=== PATIENT | male | born 1980 | race African-American/Black ===

== ENCOUNTER 2021-09-13 07:29 | Inpatient (IN) | payer SELFPAY ==
[2021-09-13 08:14] LABS: Absolute Lymphocytes (CBC) 1.6 K/uL (0.7-4.9); Hematocrit 45.7 % (39.6-49.0); Lymphocytes % 14.4 % (15.3-44.8); MCV 93.5 fL (80-100); MPV 10.1 fL (7.6-11.3); RBC Red Blood Cell Count 4.89 M/uL (4.33-5.43)
[2021-09-13] MEDS ORDERED: NA CHLORIDE 0.9% 1,000 ML ONE (08:38)
[2021-09-13 08:58] LABS: Albumin 4.3 g/dL (3.4-5.0); Bilirubin Total 1.3 mg/dL (0.2-1.0); Potassium 3.2 mmol/L (3.5-5.1); Protein, Total 8.6 g/dL (6.4-8.2)
--- NOTE | 2021-09-13 09:47 | RAD REPORT ---
EXAM DESCRIPTION: CTAbdomen Pelvis W Contrast - 09/13/2021 9:15 am CLINICAL HISTORY: Abdominal pain. Abdominal pain, acute, nonlocalized COMPARISON: CT ABD PELVIS W CONTRAST dated 06/04/2011 TECHNIQUE: Biphasic CT imaging of the abdomen and pelvis was performed with 100 ml non-ionic IV cont rast. All CT scans are performed using dose optimization technique as appropriate and may include automated exposure control or mA/KV adjustment according to patient size. FINDINGS: The lung bases are clear. The liver, spleen, pancreas, adrenal glands and kidneys are within normal limits. No bowel obstruction, free air, intra-abdominal free fluid or abscess. There is quite significant inf lammation surrounding segment of ascending colon along the right flank and right upper quadrant regio n. There is edematous intramural fluid suspected. The appendix is normal. 6 cm rounded localized flui d in posterior pelvis noted. No evidence of significant lymphadenopathy. No suspicious bony findings. IMPRESSION: Significant inflammation is seen surrounding a segment of the ascending colon along the right flank and right upper quadrant. This may be related to colitis or underlying inflammatory mass. Followup colonoscopy would be recommended.
--- NOTE | 2021-09-13 09:51 | EDPHYS ---
Physician Documentation [facility] Name: Cm Garduno Age: 41 yrs Sex: Male : 1980 Arrival Date: 09/13/2021 Time: 07:32 Bed 5 Private MD: ED Physician Elmer Ellington HPI: 09/13 07:45 This 41 yrs old Black Male presents to ER via Unassigned with complaints of abdominal rn and flank pain. 07:46 The patient presents with abdominal pain right lower quadrant, in the left lower rn quadrant. Onset: The symptoms/episode began/occurred 2 day(s) ago. The symptoms do not radiate. Associated signs and symptoms: Pertinent positives: anorexia, Pertinent negatives: nausea and vomiting, diarrhea, dysuria, fever, hematuria. The symptoms are described as achy, crampy. Modifying factors: The symptoms are alleviated by nothing, the symptoms are aggravated by nothing. Severity of pain: At its worst the pain was moderate in the emergency department the pain has improved. The patient has experienced a previous episode. The patient has not recently seen a physician. Pt reports RLQ and LLQ abd pain and flank pain, began 2 days ago, no trauma, no fever/chest pain/vomiting/diarrhea. Reports colitis in past. Also reports cough/congestion/runny nose/sore throat. . Historical: - Allergies: 07:47 No Known Allergies; jd3 - Home Meds: 07:47 None [Active]; jd3 - PMHx: 07:47 colitis; jd3 - PSHx: 07:47 None; jd3 - Immunization history:: Adult Immunizations up to date. - Social history:: Smoking status: unknown. - Family history:: not pertinent. - Hospitalizations: : No recent hospitalization is reported. ROS: 07:47 Constitutional: Negative for fever, chills, and weight loss, Eyes: Negative for injury, rn pain, redness, and discharge, ENT: + nasal congestion and sore throat Neck: Negative for injury, pain, and swelling, Cardiovascular: Negative for chest pain, palpitations, and edema, Respiratory: Negative for shortness of breath, cough, wheezing, and pleuritic chest pain, Abdomen/GI: + bilateral lower abd pain Back: Negative for injury and pain, : Negative for injury, bleeding, discharge, and swelling, MS/Extremity: Negative for injury and deformity, Neuro: Negative for headache, weakness, numbness, tingling, and seizure. Exam: 07:47 Constitutional: This is a well developed, well nourished patient who is awake, alert, rn and in no acute distress. Ambulatory to room without difficulty Head/Face: Normocephalic, atraumatic. ENT: No stridor, non-tender LAD, no masses Neck: Trachea midline, no masses palpated. Supple, full range of motion without nuchal rigidity, or vertebral point tenderness. No Meningismus. Cardiovascular: Regular rate and rhythm. No pulse deficits. Respiratory: No increased work of breathing, no retractions or nasal flaring. Occasional cough Abdomen/GI: Soft, non-tender Skin: Warm, dry MS/ Extremity: Pulses equal, no cyanosis. Neuro: Awake and alert, GCS 15 Vital Signs: 07:49 BP 150 / 95; Pulse 96; Resp 18 S; Temp 98.6(TE); Pulse Ox 100% on R/A; Weight 83.91 kg jd3 (R); Height 6 ft. 2 in. (187.96 cm) (R); Pain 10/10; 08:34 BP 143 / 95; Pulse 79; Resp 18 S; Pulse Ox 100% on R/A; jd3 10:56 BP 142 / 94; Pulse 75; Resp 18 S; Pulse Ox 100% on R/A; jd3 12:18 BP 135 / 95; Pulse 76; Resp 17 S; Pulse Ox 100% on R/A; jd3 13:09 BP 143 / 88; Pulse 88; Resp 17 S; Pulse Ox 100% on R/A; jd3 07:49 Body Mass Index 23.75 (83.91 kg, 187.96 cm) jd3 MDM: 07:32 Patient medically screened. rn 09:49 Differential diagnosis: appendicitis, diverticulitis, non-specific abd pain, rn pancreatitis, colitis. Data reviewed: vital signs, nurses notes, lab test result(s), radiologic studies, doppler, and as a result, I will admit patient. Counseling: I had a detailed discussion with the patient and/or guardian regarding: the historical points, exam findings, and any diagnostic results supporting the discharge/admit diagnosis, lab results, radiology results, the need for further work-up and treatment in [facility]. 09/13 07:45 Order name: CBC with Diff; Complete Time: 09:03 rn 09/13 07:45 Order name: CMP; Complete Time: 09:03 rn 09/13 07:45 Order name: Lipase; Complete Time: 09:03 rn 09/13 07:45 Order name: SARS-COV-2 RT PCR (Document "Date of Onset" if Symptomatic); Complete Time: rn 09:48 09/13 07:45 Order name: Flu; Complete Time: 09:03 rn 09/13 07:45 Order name: Urine Microscopic Only rn 09/13 07:47 Order name: Strep; Complete Time: 09:03 rn 09/13 09:42 Order name: Throat Culture EDMS 09/13 12:32 Order name: CBC with Automated Diff EDMS 09/13 12:32 Order name: CBC with Automated Diff EDMS 09/13 12:32 Order name: Comprehensive Metabolic Panel EDMS 09/13 12:32 Order name: Comprehensive Metabolic Panel EDMS 09/13 12:32 Order name: Magnesium EDMS 09/13 12:32 Order name: Magnesium EDMS 09/13 07:45 Order name: CT Abd/Pelvis - IV Contrast Only; Complete Time: 09:48 rn 09/13 07:45 Order name: IV Saline Lock; Complete Time: 08:34 rn 09/13 07:45 Order name: Labs collected and sent; Complete Time: 08:34 rn 09/13 12:30 Order name: CONS Physician Consult EDSD 09/13 12:32 Order name: NPO EDMS Administered Medications: 08:33 Drug: NS 0.9% 1000 ml Route: IV; Rate: 1000 ml; Site: right forearm; jd3 09:30 Follow up: Response: No adverse reaction; IV Status: Completed infusion jd3 11:07 Drug: Zosyn (piperacillin-tazobactam) 3.375 grams Route: IVPB; Infused Over: 60 mins; jd3 Site: right forearm; 12:00 Follow up: Response: No adverse reaction; IV Status: Completed infusion jd3 Disposition Summary: 09/13/21 09:50 Hospitalization Ordered Hospitalization Status: Inpatient Admission rn Provider: Mars Ellington rn Location: Telemetry/[facility] (Inpatient) rn Condition: Stable rn Problem: new rn Symptoms: have improved rn Bed/Room Type: Standard rn Room Assignment: 213(09/13/21 12:37) eb Diagnosis - Infectious gastroenteritis and colitis, unspecified rn Forms: - Medication Reconciliation Form rn - SBAR form rn Signatures: Dispatcher [employer] Elmer Santizo MD MD rn Davies, Jonathon, RN RN jd3 Botello, Elizabeth eb Corrections: (The following items were deleted from the chart) 12:37 09:50 rn syed
--- NOTE | 2021-09-13 09:51 | ER ---
Nurse's Notes [facility] Name: Cm Garduno Age: 41 yrs Sex: Male : 1980 Arrival Date: 09/13/2021 Time: 07:32 Bed 5 Private MD: Diagnosis: Infectious gastroenteritis and colitis, unspecified Presentation: 09/13 07:45 Chief complaint: Patient states: "I have been having this pain on my right side/flank. jd3 well really hurts on both, but mainly on the right. I have been having nausea, runny nose, and a small cough.". Coronavirus screen: At this time, the client does not indicate any symptoms associated with coronavirus-19. Ebola Screen: No symptoms or risks identified at this time. Initial Sepsis Screen: Does the patient meet any 2 criteria? No. Patient's initial sepsis screen is negative. Does the patient have a suspected source of infection? No. Patient's initial sepsis screen is negative. Risk Assessment: Do you want to hurt yourself or someone else? Patient reports no desire to harm self or others. Onset of symptoms was September 11, 2021. 07:45 Method Of Arrival: Ambulatory jd3 07:45 Acuity: KRISTA 3 jd3 Historical: - Allergies: 07:47 No Known Allergies; jd3 - Home Meds: 07:47 None [Active]; jd3 - PMHx: 07:47 colitis; jd3 - PSHx: 07:47 None; jd3 - Immunization history:: Adult Immunizations up to date. - Social history:: Smoking status: unknown. - Family history:: not pertinent. - Hospitalizations: : No recent hospitalization is reported. Screenin:53 Abuse screen: Denies threats or abuse. Nutritional screening: No deficits noted. jd3 Tuberculosis screening: No symptoms or risk factors identified. Fall Risk IV access (20 points). Ambulatory Aid- None/Bed Rest/Nurse Assist (0 pts). Gait- Normal/Bed Rest/Wheelchair (0 pts) Mental Status- Oriented to own ability (0 pts). Total Rosa Fall Scale indicates No Risk (0-24 pts). Assessment: 07:51 General: Appears in no apparent distress. comfortable, Behavior is calm, cooperative, jd3 appropriate for age. Pain: Complains of pain in low back area, left flank and right flank Quality of pain is described as sharp, tender. Neuro: Vang Agitation-Sedation Scale (RASS): 0 - Alert and Calm Level of Consciousness is awake, alert, obeys commands, Oriented to person, place, time, situation. Cardiovascular: Denies chest pain, Capillary refill < 3 seconds Patient's skin is warm and dry. Respiratory: Reports cough that is dry, Airway is patent Respiratory effort is even, unlabored, Respiratory pattern is regular, symmetrical, Denies shortness of breath. GI: Abdomen is non-distended, Abd is soft and non tender X 4 quads. Reports nausea. : Reports pain in right in left flank(s). EENT: No signs and/or symptoms were reported regarding the EENT system. Derm: Skin is intact, Skin is dry, Skin is normal, Skin temperature is warm. Musculoskeletal: Circulation, motion, and sensation intact. Range of motion: intact in all extremities. 08:50 Reassessment: Patient appears in no apparent distress at this time. No changes from jd3 previously documented assessment. Patient and/or family updated on plan of care and expected duration. Pain level reassessed. Patient is alert, oriented x 3, equal unlabored respirations, skin warm/dry/pink. 09:50 Reassessment: Patient appears in no apparent distress at this time. No changes from jd3 previously documented assessment. Patient and/or family updated on plan of care and expected duration. Pain level reassessed. Patient is alert, oriented x 3, equal unlabored respirations, skin warm/dry/pink. 10:55 Reassessment: Patient appears in no apparent distress at this time. Patient and/or jd3 family updated on plan of care and expected duration. Pain level reassessed. Patient is alert, oriented x 3, equal unlabored respirations, skin warm/dry/pink. awaiting admission. 12:18 Reassessment: Patient appears in no apparent distress at this time. No changes from jd3 previously documented assessment. Patient and/or family updated on plan of care and expected duration. Pain level reassessed. Patient is alert, oriented x 3, equal unlabored respirations, skin warm/dry/pink. 13:09 Reassessment: Patient appears in no apparent distress at this time. Patient and/or jd3 family updated on plan of care and expected duration. Pain level reassessed. Patient is alert, oriented x 3, equal unlabored respirations, skin warm/dry/pink. awaiting admission. 13:16 Reassessment: report attempt made. floor will call back. jd3 14:14 Reassessment: Patient appears in no apparent distress at this time. Patient and/or jd3 family updated on plan of care and expected duration. Pain level reassessed. Patient is alert, oriented x 3, equal unlabored respirations, skin warm/dry/pink. Vital Signs: 07:49 BP 150 / 95; Pulse 96; Resp 18 S; Temp 98.6(TE); Pulse Ox 100% on R/A; Weight 83.91 kg jd3 (R); Height 6 ft. 2 in. (187.96 cm) (R); Pain 10/10; 08:34 BP 143 / 95; Pulse 79; Resp 18 S; Pulse Ox 100% on R/A; jd3 10:56 BP 142 / 94; Pulse 75; Resp 18 S; Pulse Ox 100% on R/A; jd3 12:18 BP 135 / 95; Pulse 76; Resp 17 S; Pulse Ox 100% on R/A; jd3 13:09 BP 143 / 88; Pulse 88; Resp 17 S; Pulse Ox 100% on R/A; jd3 07:49 Body Mass Index 23.75 (83.91 kg, 187.96 cm) [facility] ED Course: 07:32 Patient arrived in ED. am2 07:32 Elmer Ellington MD is Attending Physician. rn 07:38 Aaron Velásquez, FRANCOIS is Primary Nurse. jd3 07:47 Triage completed. jd3 07:51 Arm band placed on. jd3 07:53 Patient has correct armband on for positive identification. Bed in low position. Call j light in reach. Side rails up X 1. Adult w/ patient. Pulse ox on. NIBP on. 08:06 Initial lab(s) drawn, by me, sent to lab. Inserted saline lock: 20 gauge in right em1 forearm, using aseptic technique. Blood collected. 09:17 CT Abd/Pelvis - IV Contrast Only In Process Unspecified. EDMS 09:50 Mars Ellington MD is Hospitalizing Provider. rn 13:17 Assisted to bathroom. jd3 14:14 No provider procedures requiring assistance completed. Patient admitted, IV remains in jd3 place. Administered Medications: 08:33 Drug: NS 0.9% 1000 ml Route: IV; Rate: 1000 ml; Site: right forearm; jd3 09:30 Follow up: Response: No adverse reaction; IV Status: Completed infusion jd3 11:07 Drug: Zosyn (piperacillin-tazobactam) 3.375 grams Route: IVPB; Infused Over: 60 mins; jd3 Site: right forearm; 12:00 Follow up: Response: No adverse reaction; IV Status: Completed infusion jd3 Medication: 07:53 VIS not applicable for this client. jd3 Outcome: 09:50 Decision to Hospitalize by Provider. rn 14:14 Admitted to Med/surg accompanied by tech, via stretcher, room 213, with chart, Report jd3 called to Sumaya PARRISH 14:14 Condition: stable 14:14 Instructed on the need for admit. 14:44 Patient left the ED. jd3 Signatures: Dispatcher [employer] Elmer Santizo MD MD rn Martinez, Eric em1 Sierra Gregg Jonathon, RN RN jjustine
[2021-09-13] MEDS ORDERED: PIPERACIL/TAZO 3.375 GM VIAL IV ONE (11:00)
[2021-09-13] MEDS ORDERED: NA CHLORIDE 0.9% 100 ML ONE (11:00)
[2021-09-13] MEDS ORDERED: ONDANSETRON 4 MG/2 ML VIAL IV PRN (12:28)
[2021-09-13] MEDS ORDERED: ACETAMINOPHEN 500 MG TAB PO PRN (12:28)
[2021-09-13] MEDS ORDERED: HYDROCODONE/APAP 5/325 MG TAB PO PRN (12:32)
[2021-09-13] MEDS: ENOXAPARIN 40 MG/0.4 ML SQ SCH (14:44)
[2021-09-13] MEDS: D5.45NS W/KCL 20MEQ 1,000 ML IV SCH (14:44)
[2021-09-13] MEDS: MORPHINE 2 MG/ML SYR IV PRN (14:44)
[2021-09-13 16:42] VITALS: BMI 23.7
[2021-09-13] MEDS: PIPER TAZO 3.375 GM in NA CHLORIDE 0.9% 100 ML IV SCH (16:47)
--- NOTE | 2021-09-13 18:53 | P.HP ---
Certification for Inpatient Patient admitted to: Inpatient With expected LOS: >2 Midnights Practitioner: I am a practitioner with admitting privileges, knowledge of patient current condition, hospital course, and medical plan of care. Services: Services provided to patient in accordance with Admission requirements found in Title 42 Section 412.3 of the Code of Federal Regulations Patient History Date of Service: 09/13/21 Reason for admission: colitis History of Present Illness: 41yo M, PMH: HTN Presents to ED due to ~2-3 days of R sided abdominal pain. No nausea/vomiting/di arrhea. Decreased PO intake secondary to discomfort. No fever/chills. Pain has not been improving so he presented to ED. Prior episode ~10 yrs ago and diagnosed with colitis. Never followed up with GI for c-scope. Difficulty with getting comfortable. Nothing in particular has helped. In the ED, CT concerning for inflammation of ascending colon. WBC: 11, afebrile Allergies NKDA Allergy (Uncoded 04/04/15 14:09) Unknown Home Medications: NK [No Home Meds] 09/13/21 - Past Medical/Surgical History Has patient received pneumonia vaccine in the past: No Diabetic: No -: Colitis Past Surgical History: Patient denies surgical history - Family History Father History Unknown: Yes Mother History Unknown: Yes - Social History Smoking Status: Current some day smoker Alcohol use: No CD- Drugs: No Caffeine use: Yes Place of Residence: Home Review of Systems 10-point ROS is otherwise unremarkable Physical Examination - Vital Signs Temperature: 99.7 F Blood Pressure: 166/87 Pulse: 80 Respirations: 18 Pulse Ox (%): 95 - Physical Exam General: Alert, Oriented x3, Mild distress (uncomfortable appearing) HEENT: Sclerae nonicteric Neck: No LAD Respiratory: Clear to auscultation bilaterally Cardiovascular: No edema, Regular rate/rhythm Gastrointestinal: Other (soft), Tenderness (R sided) Musculoskeletal: No contractures, No erythema Integumentary: No rashes, No significant lesion Neurological: Normal speech, Normal affect - Studies Laboratory Data (last 24 hrs) 09/13/21 08:00: Sodium 141, Potassium 3.2 L, BUN 8, Creatinine 0.93, Glucose 94, Total Bilirubin 1.3 H, AST 12 L, ALT 32, Alkaline Phosphatase 71, Lipase 155 09/13/21 08:00: WBC 11.0 H, Hgb 15.5, Hct 45.7, Plt Count 123 L Microbiology Data (last 24 hrs): 09/13/21 08:00 Throat Group A Streptococcus Rapid Screen - Final 09/13/21 08:00 Nasopharnyx Influenza Type A Antigen Screen - Final 09/13/21 08:00 Nasopharnyx Influenza Type B Antigen Screen - Final Assessment and Plan - Advance Directives Does patient have a Living Will: No Does patient have a Durable POA for Healthcare: No Physician Review Additional Text: Problem List Inflammation / colitis of ascending colon HTN, untreated zosyn NPO, IVF similar location as prior episode needs to f/u with GI for c-scope - explained to patient general surgery consulted, abnormal fluid collection noted in pelvis monitor BP serial abd exams Code: full Dispo: home, ~2-3 days Time Spent Managing Pts Care (In Minutes): 75
[2021-09-13] MEDS ORDERED: POTASSIUM CL SA 10 MEQ TAB PO ONE (20:00)
[2021-09-14] MEDS: D5.45NS W/KCL 20MEQ 1,000 ML IV SCH ×2 (00:28→10:30)
[2021-09-14] MEDS: PIPER TAZO 3.375 GM in NA CHLORIDE 0.9% 100 ML IV SCH ×3 (01:29→16:02)
[2021-09-14 05:56] LABS: Absolute Lymphocytes (CBC) 2.2 K/uL (0.7-4.9); Hematocrit 39.4 % (39.6-49.0); Lymphocytes % 27.9 % (15.3-44.8); MCV 94.6 fL (80-100); MPV 10.6 fL (7.6-11.3); RBC Red Blood Cell Count 4.17 M/uL (4.33-5.43)
[2021-09-14 06:17] LABS: Albumin 3.5 g/dL (3.4-5.0); Bilirubin Total 1.7 mg/dL (0.2-1.0); Magnesium 2.1 mg/dL (1.8-2.4); Potassium 3.9 mmol/L (3.5-5.1); Protein, Total 7.2 g/dL (6.4-8.2)
--- NOTE | 2021-09-14 06:18 | P.PN ---
Date of Service: 09/14/21 Subjective: less pain, feels hungry afebrile no new symptoms ROS: 10 point ROS as noted above, otherwise negative Physical exam GEN: Alert, oriented, NAD HEENT: Normal conjunctiva, sclera anicteric CV: Regular rate and rhythm, no edema Pulm: Nonlabored respirations on room air ABD: Soft, minimal tenderness in R abdomen to deep palpation, nondistended Neuro: Normal speech, normal affect Problem List Inflammation / colitis of ascending colon HTN, untreated zosyn advance to clear liquids, dc ivf similar location as prior episode needs to f/u with GI for c-scope - explained to patient general surgery consulted, abnormal fluid collection noted in pelvis stable for > 10 yrs advance diet as tolerated remains afebrile, no leukocytosis Code: full Dispo: home, tomorrow possibly advancing diet Time Spent Managing Pts Care (In Minutes): 35
[2021-09-14 07:10] LABS: Urine Appearance Clear (Clear); Urine Bilirubin Negative (Negative); Urine Blood Trace-intact (Negative); Urine Color Yellow (Yellow); Urine Glucose Negative (Negative); Urine Protein Negative (Negative)
[2021-09-14 07:11] LABS: Urine Microscopic Reflex ORDER UMIC
[2021-09-14 07:29] LABS: Urine Bacteria <20 /HPF (NONE SEEN); Urine Mucus 1+ /HPF (NONE SEEN); Urine RBC <5 /HPF (NONE SEEN)
[2021-09-14] MEDS: ENOXAPARIN 40 MG/0.4 ML SQ SCH (07:47)
[2021-09-14] MEDS ORDERED: POTASSIUM CL SA 10 MEQ TAB PO ONE ×2 (08:00→09:00)
--- NOTE | 2021-09-14 10:29 | P.CNS ---
Date of Consult: 09/14/21 Reason for consult: Abdominal pain History of present illness: Patient is a 41-year-old gentleman who presents to the emergency room with 2 to 3-day history of right-sided abdominal pain associated with nausea and vomiting. He had a similar episode several years back was diagnosed with colitis but he never followed up with the GI service. He denies diarrhea, constipation or blood in his stool. Denies dysuria or hematuria. Denies sore throat, runny nose, cough, headaches, dizziness, chest pain, fever or chills. Review of systems: Otherwise unremarkable Past medical history: Colitis Past surgical history: Negative Allergies: None Social history: Does not smoke drinks occasionally Family history: Noncontributory Vital signs: Stable, afebrile Physical exam: Awake alert oriented x4 Head and neck exam: No masses Chest: Clear Heart: S1-S2 Abdomen: Soft, nondistended, positive bowel sound, nontender Extremity: Neurovascular intact, nontender Neuro: Nonfocal Diagnostic data: White count was 11.[address] of the abdomen pelvis was reviewed with radiologist. CT revealed ascending colon colitis with a chronic pelvic c yst which has not changed since 2011. Assessment: Ascending colon colitis Plan/recommendation: Admit, IV fluids and IV antibiotics. We will begin patient's diet with clear liquids and advance to low fiber as tolerated. Get dietitian consultation. Patient will need 2 weeks of oral antibiotics upon discharge and follow-up with the GI service for an outpatient colonoscopy in 4 to 6 weeks. Plan of care discussed in detail with Dr. Ellington as well as the family member and patient. CC:
[2021-09-14] MEDS: MORPHINE 2 MG/ML SYR IV PRN (19:25)
[2021-09-15] MEDS: PIPER TAZO 3.375 GM in NA CHLORIDE 0.9% 100 ML IV SCH ×2 (00:30→07:57)
[2021-09-15 03:50] LABS: Absolute Lymphocytes (CBC) 2.6 K/uL (0.7-4.9); Hematocrit 41.3 % (39.6-49.0); Lymphocytes % 44.2 % (15.3-44.8); MCV 94.3 fL (80-100); MPV 10.3 fL (7.6-11.3); RBC Red Blood Cell Count 4.38 M/uL (4.33-5.43)
[2021-09-15 04:10] LABS: Albumin 3.8 g/dL (3.4-5.0); Bilirubin Total 1.1 mg/dL (0.2-1.0); Potassium 3.9 mmol/L (3.5-5.1); Protein, Total 7.7 g/dL (6.4-8.2)
[2021-09-15] MEDS: ENOXAPARIN 40 MG/0.4 ML SQ SCH (07:57)
[2021-09-15] MEDS ORDERED: POTASSIUM CL SA 10 MEQ TAB PO ONE (09:00)
[2021-09-15 09:25] VITALS: O2SAT 100
[2021-09-15 09:37] VITALS: BP 149/84; TEMP 99
--- NOTE | 2021-09-15 10:04 | P.PN ---
Date of Service: 09/15/21 Subjective: Patient has no pain. Patient is tolerating diet. Objective: Signs stable, afebrile Abdomen: Soft, nondistended, nontender and positive bowel sounds Assessment: Ascending colon colitis Plan: Cleared for discharge on 2 weeks of oral antibioticsCipro and Flagyl. Follow-up with GI service in 4 to 6 weeks. CC:
--- NOTE | 2021-09-15 20:36 | P.DS ---
Admission Date: 09/13/21 Discharge Date: 09/15/21 Disposition: ROUTINE DISCHARGE Discharge Condition: GOOD Reason for Admission: colitis Consultations: General Surgery - Dr. Estrada Brief History of Present Illness: 41yo M, PMH: HTN Presents to ED due to ~2-3 days of R sided abdominal pain. No nausea/vomiting/diarrhea. Decreased PO intake secondary to discomfort. No fever/chills. Pain has not been improving so he presented to ED. Prior episode ~10 yrs ago and diagnosed with colitis. Never followed up with GI for c-scope. Difficulty with getting comfortable. Nothing in particular has helped. In the ED, CT concerning for inflammation of ascending colon. WBC: 11, afebrile Hospital Course: Problem List Inflammation / colitis of ascending colon HTN, untreated Patient was treated with IV zosyn for colitis. He had improvement of his symptoms, remained afebrile. Diet was slowly advanced, which he tolerated well. Recommend soft / low fiber diet. Discharged with 12 days of Augmentin. Follow up with PCP within 1 week. Follow up with GI soon, call office to make appointment. Recommend colonoscopy Vital Signs/Physical Exam: Temp Pulse Resp BP Pulse Ox 99.0 F 66 16 149/84 H 100 09/15/21 08:00 09/15/21 08:00 09/15/21 08:00 09/15/21 08:00 09/15/21 08:00 Physical exam GEN: Alert, oriented, NAD HEENT: Normal conjunctiva, sclera anicteric CV: Regular rate and rhythm, no edema Pulm: Nonlabored respirations on room air ABD: Soft, minimal tenderness in R abdomen to deep palpation, nondistended Neuro: Normal speech, normal affect Laboratory Data at Discharge: WBC 5.9 K/uL (4.3-10.9) D 09/15/21 03:08 Hgb 14.2 g/dL (13.6-17.9) 09/15/21 03:08 Hct 41.3 % (39.6-49.0) 09/15/21 03:08 Plt Count 128 K/uL (152-406) L 09/15/21 03:08 Sodium 138 mmol/L (136-145) 09/15/21 03:08 Potassium 3.9 mmol/L (3.5-5.1) 09/15/21 03:08 BUN 6 mg/dL (7-18) L 09/15/21 03:08 Creatinine 0.97 mg/dL (0.55-1.3) 09/15/21 03:08 Glucose 88 mg/dL (74-106) 09/15/21 03:08 Magnesium 2.0 mg/dL (1.8-2.4) 09/15/21 03:08 Total Bilirubin 1.1 mg/dL (0.2-1.0) H 09/15/21 03:08 AST 10 U/L (15-37) L 09/15/21 03:08 ALT 28 U/L (12-78) 09/15/21 03:08 Alkaline Phosphatase 54 U/L (45-117) 09/15/21 03:08 Lipase 155 U/L (73-393) 09/13/21 08:00 Home Medications: Amox/Clavulanate [Augmentin 875-125 Tab] 1 each PO BID 12 Days #24 tab 09/15/21 New Medications: Amox/Clavulanate [Augmentin 875-125 Tab] 1 each PO BID 12 Days #24 tab Physician Discharge Instructions: Patient was treated with IV zosyn for colitis. He had improvement of his symptoms, remained afebrile. Diet was slowly advanced, which he tolerated well. Recommend soft / low fiber diet. Discharged with 12 days of Augmentin. Follow up with PCP within 1 week. Follow up with GI soon, call office to make appointment. Recommend colonoscopy Followup: George Meier MD [Primary Care Provider] - 1 Week (call to schedule an appointment ) Time spent managing pt's care (in minutes): 40
== END 2021-09-15 10:15 | disposition home or self-care (01) | DRG 392 ==
LOC: ER 07:29 → ERHOLD 12:58 → 2ND 14:17
PROVIDERS: ADMIT Hospitalist; ATTEND Hospitalist
DX: K52.9 Noninfective gastroenteritis and colitis, unspecified (principal); I10 Essential (primary) hypertension; F17.200 Nicotine dependence, unspecified, uncomplicated; Z20.822 Contact with and (suspected) exposure to COVID-19
CPT/HCPCS: 36415; 74177; 80053; 81003; 81015; 83690; 83735; 85025; 87040; 87070; 87081; 87804; 94760; 96361; 96365; 99285; J1650; J2270; J2543; J7030; Q9967; U0003

== ENCOUNTER 2022-01-29 11:24 | Emergency (ER) | payer OTHER, SELFPAY ==
--- OUTSIDE RECORDS SUMMARY | 2022-01-29 11:30 | XMS REPORT | Continuity of Care Document ---
:1980 Author Organization [facility] t Address Formerly [facility] [address] [place] [address] Care Team Providers Name Role Phone Pancho Meier MD Primary Care Physician RADIOLOGY Attending Clinician Unavailable Doctor Unassigned, [place] Attending Clinician Unavailable BRITTNEE ARIZA Attending Clinician Unavailable Brittnee Terrell Attending Clinician Unknown, Attending Attending Clinician Unavailable James BURTON Attending Clinician Unavailable Trace Pinzon DO Attending Clinician James Broussard Attending Clinician Only, Ang Db Test Attending Clinician Unavailable PANCHO MEIER Attending Clinician Unavailable LISSY BERRIOS Attending Clinician Unavailable POPEYE GRANDA Attending Clinician Unavailable Pancho Meier MD Attending Clinician VALERIA EDWARDS Attending Clinician Unavailable Sadie Salcedo PT Attending Clinician Unavailable Valeria Edwards MD Attending Clinician 2, [facility] Attending Clinician Unavailable Payers Payer Name Policy Type Policy Number Effective Date Expiration Date S ource Problems Condition Condition Condition Status Onset Resolution Last Treating Co mments Source Name Details Category Date Date Treatment Clinician Date Need for Need for Disease Active Unive rs hepatitis hepatitis 6-08 ity of C C 00:00: [place] screening screening 00 Medi bishop test test Branch 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 6-08 it[place] panc[place] without 00 Medical complicati complicati Br anch ons ons Screening Screening Disease Active Uni vers for for 6-08 [place] malignant malignant [place] Med[place] of colon of colon Branch Acute pain Acute pain Disease Active U nivers of left of left 3-11 ity of shoulder shoulder 00:00: [place] 00 Medical Branch Muscle Muscle Disease Active Univers spasm of spasm of 3-11 ity of right right 00:00: [place] shoulder shoulder 00 Medica l Branch Lumbar Lumbar Disease Active Univers paraspinal paraspinal 3-11 it y of muscle muscle 00:00: [place] spasm spasm 00 Medical Branch Strain of Strain of Disease Active Uni vers left left 3-11 it[place] of shoulder, shoulder, 00:[place] initial 00 Medical encounter encounter Bran ch Acute Acute Disease Active Univers bilateral bilateral 3-11 ity of low back low back 00:00: [place] pain pain 00 Medical without without Branch sciatica sciatica Essential Essential Disease Active Uni vers hypertensi hypertensi 3-04 it y of on on 00:00: Medical Branch Generalize Generalize Disease Active U nivers d anxiety d anxiety 3-04 ity of disorder disorder 00:00: [place] Medical [facility] Depression Depression Disease Active U nivers , major, , major, 3-04 ity of recurrent, recurrent, [place] mild mild Medical Branch Primary Primary Disease Active [facility] insomnia insomnia 3-04 ity of 00:00: [place] [facility] Migraine Migraine Disease Active Unive rs equivalent equivalent 3-04 it y of syndrome syndrome 00:00: [place] [facility] Cigarette Cigarette Disease Active Uni vers nicotine nicotine 3-04 ity of dependence dependence [place] , , 00 Medical uncomplica uncomplica Br reyes nava Hand Hand Disease Active Univers injury, injury, 1-20 ity of right, right, 00:00: [place] initial initial 00 Medical encounter encounter Bran ch Allergies, Adverse Reactions, Alerts Allergy Allergy Status Severity Reaction(s) Onset Inactive Treating Comm ents Source Name Type Date Date Clinician NO KNOWN Drug Active Univers ALLERGIE Class ity of S [place] [facility] [place] Social History Social Habit Start Date Stop Date Quantity Comments Source Exposure to 2022-01-18 2022-01-28 Not sure [facility] SARS-CoV-2 (event) 00:00:00 10:49:00 Medica l Branch Alcohol intake 2022-01-04 2022-01-04 0 /d [facility] 00:[facility]:00 00:00:00 Medical Branch Tobacco use and 2020-08-28 2020-08-28 Never used [facility] exposure 00:00:00 00:00:00 Medical Branch Sex [birth year] [facility] 00:00:00 00:00:00 Medical Branch Smoking Status Start Date Stop Date Source Never smoked tobacco [facility] Medications Ordered Filled Start Stop Current Ordering Indication Dosage Frequency Signature Comments Components Source Medication Medication Date Date Medication? Clinician (SIG) Name Name fluticasone 2021-03 Yes [id number] 2{spray Use 2 Univers propionate 0-15 } Sprays in ity of 50 00:00: each [place] mcg/actuati 00 nostril in Me dical on nasal the Branch spray morning. cetirizine 2021-03 Yes [id number] 10mg Take 1 U nivers (ZYRTEC) 10 0-15 tablet by ity of mg tablet 00:00: mouth in the Medical morning. Branch fluticasone 2021-03 Yes [id number] 2{spray Use 2 Univers propionate 0-15 } Sprays in ity of 50 00:00: each [place] mcg/actuati 00 nostril in Me dical on nasal the Branch spray morning. cetirizine 2021-03 Yes [id number] 10mg Take 1 U nivers (ZYRTEC) 10 0-15 tablet by ity of mg tablet 00:00: mouth in the Medical morning. Branch amLODIPine 2021-03 Yes 10mg Take 10 mg U nivers 10 mg 0-07 by mouth ity of tablet 00:00: in the morning. Medical Branch orphenadrin 2021-03 Yes TAKE 1 Univ ers e 100 mg SR 0-07 TABLET BY ity of tablet 00:00: MOUTH [place] 00 TWICE Medical DAILY Branch NEEDED amLODIPine 2021-03 Yes 10mg Take 10 mg U nivers 10 mg 0-07 by mouth ity of tablet 00:00: in the [place] 00 morning. Medical Branch orphenadrin 2021-03 Yes TAKE 1 Univ ers e 100 mg SR 0-07 TABLET BY ity of tablet 00:00: MOUTH [place] 00 TWICE Medical DAILY Branch NEEDED lisinopriL- Yes [id number] .5{tbl} Take 0.5 Univers hydrochloro 6-08 tablets by it y of thiazide 00:00: mouth [place] 10-12.5 mg 00 daily. Medical per tablet Branch esomeprazol Yes [id number] 20mg Take 20 mg Univers e 20 mg 6-08 by mouth ity of capsule 00:00: daily [place] 00 before a Medical meal. Branch nicotine Yes [id number] 1{patch Apply 1 Univers mg/24 hr 6-08 } Patch to ity of patch 00:00: area(s) [place] 00 every 24 Medical (twenty-fo Branch ur) hours. Apply 21mg patch daily x 6 weeks; then apply 14mf patch daily x 2 weeks; then apply 7mg patch daily x 2 weeks. Stop smoking on initiation of therapy nicotine Yes [id number] 1{patch Apply 1 Univers mg/24 hr 6-08 } Patch to ity of patch 00:00: area(s) [place] 00 daily. Medical Apply 21mg Branch patch daily x 6 weeks; then apply 14mg patch daily x 2 weeks; then apply 7mg patch daily x 2 weeks. Stop smoking on initiation of therapy nicotine Yes [id number] 1{patch Apply 1 Univers mg/24 hr 6-08 } Patch to ity of patch 00:00: area(s) [place] 00 every 24 Medical (twenty-fo Branch ur) hours. Apply 21mg patch daily x 6 weeks; then apply 14mf patch daily x 2 weeks; then apply 7mg patch daily x 2 weeks. Stop smoking on initiation of therapy lisinopriL- Yes [id number] .5{tbl} Take 0.5 Univers hydrochloro 6-08 tablets by it y of thiazide 00:00: mouth [place] 10-12.5 mg 00 daily. Medical per tablet Branch esomeprazol Yes [id number] 20mg Take 20 mg Univers e 20 mg 6-08 by mouth ity of capsule 00:00: daily [place] 00 before a Medical meal. Branch nicotine Yes [id number] 1{patch Apply 1 Univers mg/24 hr 6-08 } Patch to ity of patch 00:00: area(s) [place] 00 every 24 Medical (twenty-fo Branch ur) hours. Apply 21mg patch daily x 6 weeks; then apply 14mf patch daily x 2 weeks; then apply 7mg patch daily x 2 weeks. Stop smoking on initiation of therapy nicotine Yes [id number] 1{patch Apply 1 Univers mg/24 hr 6-08 } Patch to ity of patch 00:00: area(s) [place] 00 daily. Medical Apply 21mg Branch patch daily x 6 weeks; then apply 14mg patch daily x 2 weeks; then apply 7mg patch daily x 2 weeks. Stop smoking on initiation of therapy nicotine 7 Yes [id number] 1{patch Apply 1 Univers mg/24 hr 6-08 } Patch to ity of patch 00:00: area(s) [place] 00 every 24 Medical (twenty-fo Branch ur) hours. Apply 21mg patch daily x 6 weeks; then apply 14mf patch daily x 2 weeks; then apply 7mg patch daily x 2 weeks. Stop smoking on initiation of therapy lisinopriL- Yes [id number] .5{tbl} Take 0.5 Univers hydrochloro 6-08 tablets by it y of thiazide 00:00: mouth [place] 10-12.5 mg 00 daily. Medical per tablet Branch esomeprazol Yes [id number] 20mg Take 20 mg Univers e 20 mg 6-08 by mouth ity of capsule 00:00: daily [place] 00 before a Medical meal. Branch nicotine Yes [id number] 1{patch Apply 1 Univers mg/24 hr 6-08 } Patch to ity of patch 00:00: area(s) [place] 00 every 24 Medical (twenty-fo Branch ur) hours. Apply 21mg patch daily x 6 weeks; then apply 14mf patch daily x 2 weeks; then apply 7mg patch daily x 2 weeks. Stop smoking on initiation of therapy nicotine Yes [id number] 1{patch Apply 1 Univers mg/24 hr 6-08 } Patch to ity of patch 00:00: area(s) [place] 00 daily. Medical Apply 21mg Branch patch daily x 6 weeks; then apply 14mg patch daily x 2 weeks; then apply 7mg patch daily x 2 weeks. Stop smoking on initiation of therapy nicotine 7 Yes [id number] 1{patch Apply 1 Univers mg/24 hr 6-08 } Patch to ity of patch 00:00: area(s) [place] 00 every 24 Medical (twenty-fo Branch ur) hours. Apply 21mg patch daily x 6 weeks; then apply 14mf patch daily x 2 weeks; then apply 7mg patch daily x 2 weeks. Stop smoking on initiation of therapy lisinopriL- Yes [id number] .5{tbl} Take 0.5 Univers hydrochloro 6-08 tablets by it y of thiazide 00:00: mouth [place] 10-12.5 mg 00 daily. Medical per tablet Branch esomeprazol Yes [id number] 20mg Take 20 mg Univers e 20 mg 6-08 by mouth ity of capsule 00:00: daily [place] 00 before a Medical meal. Branch nicotine 14 Yes [id number] 1{patch Apply 1 Univers mg/24 hr 6-08 } Patch to ity of patch 00:00: area(s) [place] 00 every 24 Medical (twenty-fo Branch ur) hours. Apply 21mg patch daily x 6 weeks; then apply 14mf patch daily x 2 weeks; then apply 7mg patch daily x 2 weeks. Stop smoking on initiation of therapy nicotine Yes [id number] 1{patch Apply 1 Univers mg/24 hr 6-08 } Patch to ity of patch 00:00: area(s) [place] 00 daily. Medical Apply 21mg Branch patch daily x 6 weeks; then apply 14mg patch daily x 2 weeks; then apply 7mg patch daily x 2 weeks. Stop smoking on initiation of therapy nicotine 7 Yes [id number] 1{patch Apply 1 Univers mg/24 hr 6-08 } Patch to ity of patch 00:00: area(s) [place] 00 every 24 Medical (twenty-fo Branch ur) hours. Apply 21mg patch daily x 6 weeks; then apply 14mf patch daily x 2 weeks; then apply 7mg patch daily x 2 weeks. Stop smoking on initiation of therapy lisinopriL- Yes [id number] .5{tbl} Take 0.5 Univers hydrochloro 6-08 tablets by it y of thiazide 00:00: mouth [place] 10-12.5 mg 00 daily. Medical per tablet Branch esomeprazol Yes [id number] 20mg Take 20 mg Univers e 20 mg 6-08 by mouth ity of capsule 00:00: daily [place] 00 before a Medical meal. Branch nicotine Yes [id number] 1{patch Apply 1 Univers mg/24 hr 6-08 } Patch to ity of patch 00:00: area(s) [place] 00 every 24 Medical (twenty-fo Branch ur) hours. Apply 21mg patch daily x 6 weeks; then apply 14mf patch daily x 2 weeks; then apply 7mg patch daily x 2 weeks. Stop smoking on initiation of therapy nicotine Yes [id number] 1{patch Apply 1 Univers mg/24 hr 6-08 } Patch to ity of patch 00:00: area(s) [place] 00 daily. Medical Apply 21mg Branch patch daily x 6 weeks; then apply 14mg patch daily x 2 weeks; then apply 7mg patch daily x 2 weeks. Stop smoking on initiation of therapy nicotine 7 Yes [id number] 1{patch Apply 1 Univers mg/24 hr 6-08 } Patch to ity of patch 00:00: area(s) [place] 00 every 24 Medical (twenty-fo Branch ur) hours. Apply 21mg patch daily x 6 weeks; then apply 14mf patch daily x 2 weeks; then apply 7mg patch daily x 2 weeks. Stop smoking on initiation of therapy lisinopriL- Yes [id number] .5{tbl} Take 0.5 Univers hydrochloro 6-08 tablets by it y of thiazide 00:00: mouth [place] 10-12.5 mg 00 daily. Medical per tablet Branch esomeprazol Yes [id number] 20mg Take 20 mg Univers e 20 mg 6-08 by mouth ity of capsule 00:00: daily [place] 00 before a Medical meal. Branch nicotine 14 Yes [id number] 1{patch Apply 1 Univers mg/24 hr 6-08 } Patch to ity of patch 00:00: area(s) [place] 00 every 24 Medical (twenty- Branch ur) hours. Apply 21mg patch daily x 6 weeks; then apply 14mf patch daily x 2 weeks; then apply 7mg patch daily x 2 weeks. Stop smoking on initiation of therapy nicotine Yes [id number] 1{patch Apply 1 Univers mg/24 hr 6-08 } Patch to ity of patch 00:00: area(s) [place] 00 daily. Medical Apply 21mg Branch patch daily x 6 weeks; then apply 14mg patch daily x 2 weeks; then apply 7mg patch daily x 2 weeks. Stop smoking on initiation of therapy nicotine Yes [id number] 1{patch Apply 1 Univers mg/24 hr 6-08 } Patch to ity of patch 00:00: area(s) [place] 00 every 24 Medical ([facility] Branch ur) hours. Apply 21mg patch daily x 6 weeks; then apply 14mf patch daily x 2 weeks; then apply 7mg patch daily x 2 weeks. Stop smoking on initiation of therapy lisinopriL- Yes [id number] .5{tbl} Take 0.5 Univers hydrochloro 6-08 tablets by it y of thiazide 00:00: mouth [place] 10-12.5 mg 00 daily. Medical per tablet Branch esomeprazol Yes [id number] 20mg Take 20 mg Univers e 20 mg 6-08 by mouth ity of capsule 00:00: daily [place] 00 before a Medical meal. Branch nicotine Yes [id number] 1{patch Apply 1 Univers mg/24 hr 6-08 } Patch to ity of patch 00:00: area(s) [place] 00 every 24 Medical (twenty- Branch ur) hours. Apply 21mg patch daily x 6 weeks; then apply 14mf patch daily x 2 weeks; then apply 7mg patch daily x 2 weeks. Stop smoking on initiation of therapy nicotine Yes [id number] 1{patch Apply 1 Univers mg/24 hr 6-08 } Patch to ity of patch 00:00: area(s) [place] 00 daily. Medical Apply 21mg Branch patch daily x 6 weeks; then apply 14mg patch daily x 2 weeks; then apply 7mg patch daily x 2 weeks. Stop smoking on initiation of therapy nicotine 7 Yes [id number] 1{patch Apply 1 Univers mg/24 hr 6-08 } Patch to ity of patch 00:00: area(s) [place] 00 every 24 Medical ([facility] Branch ur) hours. Apply 21mg patch daily x 6 weeks; then apply 14mf patch daily x 2 weeks; then apply 7mg patch daily x 2 weeks. Stop smoking on initiation of therapy lisinopriL- Yes [id number] .5{tbl} Take 0.5 Univers hydrochloro 6-08 tablets by it y of thiazide 00:00: mouth [place] 10-12.5 mg 00 daily. Medical per tablet Branch esomeprazol Yes [id number] 20mg Take 20 mg Univers e 20 mg 6-08 by mouth ity of capsule 00:00: daily [place] 00 before a Medical meal. Branch nicotine Yes [id number] 1{patch Apply 1 Univers mg/24 hr 6-08 } Patch to ity of patch 00:00: area() [place] 00 every 24 Medical ([facility] Branch ur) hours. Apply 21mg patch daily x 6 weeks; then apply 14mf patch daily x 2 weeks; then apply 7mg patch daily x 2 weeks. Stop smoking on initiation of therapy nicotine Yes [id number] 1{patch Apply 1 Univers mg/24 hr 6-08 } Patch to ity of patch 00:00: area(s) [place] 00 daily. Medical Apply 21mg Branch patch daily x 6 weeks; then apply 14mg patch daily x 2 weeks; then apply 7mg patch daily x 2 weeks. Stop smoking on initiation of therapy nicotine Yes [id number] 1{patch Apply 1 Univers mg/24 hr 6-08 } Patch to ity of patch 00:00: area(s) [place] 00 every 24 Medical (twenty- Branch ur) hours. Apply 21mg patch daily x 6 weeks; then apply 14mf patch daily x 2 weeks; then apply 7mg patch daily x 2 weeks. Stop smoking on initiation of therapy lisinopriL- Yes [id number] .5{tbl} Take 0.5 Univers hydrochloro 6-08 tablets by it y of thiazide 00:00: mouth [place] 10-12.5 mg 00 daily. Medical per tablet Branch esomeprazol Yes [id number] 20mg Take 20 mg Univers e 20 mg 6-08 by mouth ity of capsule 00:00: daily [place] 00 before a Medical meal. Branch nicotine 14 Yes [id number] 1{patch Apply 1 Univers mg/24 hr 6-08 } Patch to ity of patch 00:00: area(s) [place] 00 every 24 Medical (twenty-fo Branch ur) hours. Apply 21mg patch daily x 6 weeks; then apply 14mf patch daily x 2 weeks; then apply 7mg patch daily x 2 weeks. Stop smoking on initiation of therapy nicotine Yes [id number] 1{patch Apply 1 Univers mg/24 hr 6-08 } Patch to ity of patch 00:00: area(s) [place] 00 daily. Medical Apply 21mg Branch patch daily x 6 weeks; then apply 14mg patch daily x 2 weeks; then apply 7mg patch daily x 2 weeks. Stop smoking on initiation of therapy nicotine Yes [id number] 1{patch Apply 1 Univers mg/24 hr 6-08 } Patch to ity of patch 00:00: [facility](s) [place] 00 every 24 Medical (twenty- Branch ur) hours. Apply 21mg patch daily x 6 weeks; then apply 14mf patch daily x 2 weeks; then apply 7mg patch daily x 2 weeks. Stop smoking on initiation of therapy nicotine 2020- No [id number] 1{patch Apply 1 Univers mg/24 hr 6-08 06-08 } Patch to ity of patch 00:00: 00:00 [facility]() [place] 00 :00 every 24 Medical (twenty- Branch ur) hours. Apply 21mg patch daily x 6 weeks; then apply 14mf patch daily x 2 weeks; then apply 7mg patch daily x 2 weeks. Stop smoking on initiation of therapy nicotine 2020- No [id number] 1{patch Apply 1 Univers mg/24 hr 6-08 06-08 } Patch to ity of patch 00:00: 00:00 [facility]() [place] 00 :00 daily. Medical Apply 21mg Branch patch daily x 6 weeks; then apply 14mg patch daily x 2 weeks; then apply 7mg patch daily x 2 weeks. Stop smoking on initiation of therapy nicotine 2020- No [id number] 1{patch Apply 1 Univers mg/24 hr 6 06-08 } Patch to ity of patch 00:00: 00:00 [facility](s) [place] 00 :00 every 24 Medical (twenty- Branch ur) hours. Apply 21mg patch daily x 6 weeks; then apply 14mf patch daily x 2 weeks; then apply 7mg patch daily x 2 weeks. Stop smoking on initiation of therapy nicotine 14 2020- No [id number] 1{patch Apply 1 Univers mg/24 hr 6 06-08 } Patch to ity of patch 00:00: 00:00 [facility](s) [place] 00 :00 every 24 Medical ([facility] Branch ur) hours. Apply 21mg patch daily x 6 weeks; then apply 14mf patch daily x 2 weeks; then apply 7mg patch daily x 2 weeks. Stop smoking on initiation of therapy nicotine 21 2020- No [id number] 1{patch Apply 1 Univers mg/24 hr 08-28-08 } Patch to ity of patch 00:00: 00:00 [facility](s) [place] 00 :00 daily. Medical Apply 21mg Branch patch daily x 6 weeks; then apply 14mg patch daily x 2 weeks; then apply 7mg patch daily x 2 weeks. Stop smoking on initiation of therapy nicotine 7 2020- No [id number] 1{patch Apply 1 Univers mg/24 hr 08-28 06-08 } Patch to ity of patch 00:00: 00:00 [facility](s) [place] 00 :00 every 24 Medical ([facility] Branch ur) hours. Apply 21mg patch daily x 6 weeks; then apply 14mf patch daily x 2 weeks; then apply 7mg patch daily x 2 weeks. Stop smoking on initiation of therapy tiZANidine Yes [id number] 2mg Take 1 Univers 2 mg tablet 3-11 [id number] tablet by i ty of 00:00: mouth [place] 00 every 8 Medical (eight) Branch hours as needed (muscle spasms). DULoxetine Yes [id number] 20mg Take 20 mg Univers 20 mg CDRS 3-11 by mouth 2 ity of 00:00: (two) [place] 00 times Medical daily. Branch Diclofenac Yes [id number] Apply to Univers Sodium 3-11 area(s) 4 ity of (VOLTAREN) 00:00: (four) [place] 1 % gel 00 times Medical daily. Branch Apply 4 g qid ibuprofen 0 Yes [id number] 600mg Take 1 Univers 600 mg 3-11 tablet by ity of tablet 00:00: mouth [place] 00 every 8 Medical (eight) Branch hours as needed for Pain (scale 4-6). Back Brace Yes [id number] Use as Univers Misc 3-11 directed ity of 00:00: [place] 00 Medical Branch lidocaine 2020-0 Yes [id number] 1{patch Apply 1 Univers 3.5 % PtMd 3-11 } Patch to ity o f 00:00: area(s) [place] 00 daily. Medical Branch tiZANidine Yes [id number] 2mg Take 1 Univers 2 mg tablet 3-11 [id number] tablet by i ty of 00:00: mouth [place] 00 every 8 Medical (eight) Branch hours as needed (muscle spasms). DULoxetine 0 Yes [id number] 20mg Take 20 mg Univers 20 mg CDRS 3-11 by mouth 2 ity of 00:00: (two) [place] 00 times Medical daily. Branch Diclofenac 0 Yes [id number] Apply to Univers Sodium 3-11 area(s) 4 ity of (VOLTAREN) 00:00: (four) [place] 1 % gel 00 times Medical daily. Branch Apply 4 g qid ibuprofen 0 Yes [id number] 600mg Take 1 Univers 600 mg 3-11 tablet by ity of tablet 00:00: mouth [place] 00 every 8 Medical (eight) Branch hours as needed for Pain (scale 4-6). Back Brace 0 Yes [id number] Use as Univers Misc 3-11 directed ity of 00:00: [place] 00 Medical Branch lidocaine 2020-0 Yes [id number] 1{patch Apply 1 Univers 3.5 % PtMd 3-11 } Patch to ity o f 00:00: area(s) [place] 00 daily. Medical Branch tiZANidine 0 Yes [id number] 2mg Take 1 Univers 2 mg tablet 3-11 [id number] tablet by i ty of 00:00: mouth [place] 00 every 8 Medical (eight) Branch hours as needed (muscle spasms). DULoxetine 2020-0 Yes [id number] 20mg Take 20 mg Univers 20 mg CDRS 3-11 by mouth 2 ity of 00:00: (two) [place] 00 times Medical daily. Branch Diclofenac 2020-0 Yes [id number] Apply to Univers Sodium 3-11 area(s) 4 ity of (VOLTAREN) 00:00: (four) [place] 1 % gel 00 times Medical daily. Branch Apply 4 g qid ibuprofen 2020-0 Yes [id number] 600mg Take 1 Univers 600 mg 3-11 tablet by ity of tablet 00:00: mouth [place] 00 every 8 Medical (eight) Branch hours as needed for Pain (scale 4-6). Back Brace 0 Yes [id number] Use as Univers Misc 3-11 directed ity of 00:00: [place] 00 Medical Branch lidocaine 2020-0 Yes [id number] 1{patch Apply 1 Univers 3.5 % PtMd 3-11 } Patch to ity o f 00:00: area(s) [place] 00 daily. Medical Branch tiZANidine 0 Yes [id number] 2mg Take 1 Univers 2 mg tablet 3-11 [id number] tablet by i ty of 00:00: mouth [place] 00 every 8 Medical (eight) Branch hours as needed (muscle spasms). DULoxetine 2020-0 Yes [id number] 20mg Take 20 mg Univers 20 mg CDRS 3-11 by mouth 2 ity of 00:00: (two) [place] 00 times Medical daily. Branch Diclofenac 2020-0 Yes [id number] Apply to Univers Sodium 3-11 area(s) 4 ity of (VOLTAREN) 00:00: (four) [place] 1 % gel 00 times Medical daily. Branch Apply 4 g qid ibuprofen 0 Yes [id number] 600mg Take 1 Univers 600 mg 3-11 tablet by ity of tablet 00:00: mouth [place] 00 every 8 Medical (eight) Branch hours as needed for Pain (scale 4-6). Back Brace 0 Yes [id number] Use as Univers Misc 3-11 directed ity of 00:00: [place] 00 Medical Branch lidocaine 2020-0 Yes [id number] 1{patch Apply 1 Univers 3.5 % PtMd 3-11 } Patch to ity o f 00:00: area(s) [place] 00 daily. Medical Branch tiZANidine 2020-0 Yes [id number] 2mg Take 1 Univers 2 mg tablet 3-11 [id number] tablet by i ty of 00:00: mouth [place] 00 every 8 Medical (eight) Branch hours as needed (muscle spasms). DULoxetine 2020-0 Yes [id number] 20mg Take 20 mg Univers 20 mg CDRS 3-11 by mouth 2 ity of 00:00: (two) [place] 00 times Medical daily. Branch Diclofenac 2020-0 Yes [id number] Apply to Univers Sodium 3-11 area(s) 4 ity of (VOLTAREN) 00:00: (four) [place] 1 % gel 00 times Medical daily. Branch Apply 4 g qid ibuprofen 2020-0 Yes [id number] 600mg Take 1 Univers 600 mg 3-11 tablet by ity of tablet 00:00: mouth [place] 00 every 8 Medical (eight) Branch hours as needed for Pain (scale 4-6). Back Brace 0 Yes [id number] Use as Univers Misc 3-11 directed ity of 00:00: [place] 00 Medical Branch lidocaine 2020-0 Yes [id number] 1{patch Apply 1 Univers 3.5 % PtMd 3-11 } Patch to ity o f 00:00: area(s) [place] 00 daily. Medical Branch tiZANidine 0 Yes [id number] 2mg Take 1 Univers 2 mg tablet 3-11 [id number] tablet by i ty of 00:00: mouth [place] 00 every 8 Medical (eight) Branch hours as needed (muscle spasms). DULoxetine 2020-0 Yes [id number] 20mg Take 20 mg Univers 20 mg CDRS 3-11 by mouth 2 ity of 00:00: (two) [place] 00 times Medical daily. Branch Diclofenac 2020-0 Yes [id number] Apply to Univers Sodium 3-11 area(s) 4 ity of (VOLTAREN) 00:00: (four) [place] 1 % gel 00 times Medical daily. Branch Apply 4 g qid ibuprofen 2020-0 Yes [id number] 600mg Take 1 Univers 600 mg 3-11 tablet by ity of tablet 00:00: mouth [place] 00 every 8 Medical (eight) Branch hours as needed for Pain (scale 4-6). Back Brace 0 Yes [id number] Use as Univers Misc 3-11 directed ity of 00:00: [place] 00 Medical Branch lidocaine 2020-0 Yes [id number] 1{patch Apply 1 Univers 3.5 % PtMd 3-11 } Patch to ity o f 00:00: area(s) [place] 00 daily. Medical Branch tiZANidine 0 Yes [id number] 2mg Take 1 Univers 2 mg tablet 3-11 [id number] tablet by i ty of 00:00: mouth [place] 00 every 8 Medical (eight) Branch hours as needed (muscle spasms). DULoxetine 0 Yes [id number] 20mg Take 20 mg [facility] 20 mg CDRS 3-11 by mouth 2 ity of 00:00: (two) [place] 00 times Medical daily. Branch Diclofenac 0 Yes [id number] Apply to [facility] Sodium 3-11 area(s) 4 ity of (VOLTAREN) 00:00: (four) [place] 1 % gel 00 times Medical daily. Branch Apply 4 g qid ibuprofen 0 Yes [id number] 600mg Take 1 [facility] 600 mg 3-11 tablet by ity of tablet 00:00: mouth [place] 00 every 8 Medical (eight) Branch hours as needed for Pain (scale 4-6). Back Brace Yes [id number] Use as [facility] 3-11 directed ity of 00:00: [place] 00 Medical Branch lidocaine 2020-0 Yes [id number] 1{patch Apply 1 [facility] 3.5 % PtMd 3-11 } Patch to ity o f 00:00: area(s) [place] 00 daily. Medical Branch tiZANidine 0 Yes [id number] 2mg Take 1 [facility] 2 mg tablet 3-11 [id number] tablet by i ty of 00:00: mouth [place] 00 every 8 Medical (eight) Branch hours as needed (muscle spasms). DULoxetine 0 Yes [id number] 20mg Take 20 mg [facility] 20 mg CDRS 3-11 by mouth 2 ity of 00:00: (two) [place] 00 times Medical daily. Branch Diclofenac 0 Yes [id number] Apply to [facility] Sodium 3-11 area(s) 4 ity of (VOLTAREN) 00:00: (four) [place] 1 % gel 00 times Medical daily. Branch Apply 4 g qid ibuprofen Yes [id number] 600mg Take 1 [facility] 600 mg 3-11 tablet by ity of tablet 00:00: mouth [place] 00 every 8 Medical (eight) Branch hours as needed for Pain (scale 4-6). Back Brace Yes [id number] Use as [facility] Misc 3-11 directed ity of 00:00: [place] 00 Medical Branch lidocaine 2020-0 Yes [id number] 1{patch Apply 1 [facility] 3.5 % PtMd 3-11 } Patch to ity o f 00:00: area(s) [place] 00 daily. Medical Branch tiZANidine Yes [id number] 2mg Take 1 [facility] 2 mg tablet 3-11 [id number] tablet by i ty of 00:00: mouth [place] 00 every 8 Medical (eight) Branch hours as needed (muscle spasms). DULoxetine Yes [id number] 20mg Take 20 mg [facility] 20 mg CDRS 3-11 by mouth 2 ity of 00:00: (two) [place] 00 times Medical daily. Branch Diclofenac Yes [id number] Apply to [facility] Sodium 3-11 area(s) 4 ity of (VOLTAREN) 00:00: (four) [place] 1 % gel 00 times Medical daily. Branch Apply 4 g qid Back Brace Yes [id number] Use as [facility] Misc 3-11 directed ity of 00:00: [place] 00 Medical Branch lidocaine 2020-0 Yes [id number] 1{patch Apply 1 [facility] 3.5 % PtMd 3-11 } Patch to ity o f 00:00: area(s) [place] 00 daily. Medical Branch tiZANidine Yes [id number] 2mg Take 1 [facility] 2 mg tablet 3-11 [id number] tablet by i ty of 00:00: mouth [place] 00 every 8 Medical (eight) Branch hours as needed (muscle spasms). DULoxetine 0 Yes [id number] 20mg Take 20 mg [facility] 20 mg CDRS 3-11 by mouth 2 ity of 00:00: (two) [place] 00 times Medical daily. Branch Diclofenac 0 Yes [id number] Apply to [facility] Sodium 3-11 area(s) 4 ity of (VOLTAREN) 00:00: (four) [place] 1 % gel 00 times Medical daily. Branch Apply 4 g qid Back Brace Yes [id number] Use as [facility] Misc 3-11 directed ity of 00:00: [place] 00 Medical Branch lidocaine 0 Yes [id number] 1{patch Apply 1 [facility] 3.5 % PtMd 3-11 } Patch to ity o f 00:00: area(s) [place] 00 daily. Medical Branch tiZANidine Yes [id number] 2mg Take 1 [facility] 2 mg tablet 3-11 [id number] tablet by i ty of 00:00: mouth [place] 00 every 8 Medical (eight) Branch hours as needed (muscle spasms). DULoxetine Yes [id number] 20mg Take 20 mg [facility] 20 mg CDRS 3-11 by mouth 2 ity of 00:00: (two) [place] 00 times Medical daily. Branch Diclofenac Yes [id number] Apply to [facility] Sodium 3-11 area(s) 4 ity of (VOLTAREN) 00:00: (four) [place] 1 % gel 00 times Medical daily. Branch Apply 4 g qid Back Brace Yes [id number] Use as [facility] Misc 3-11 directed ity of 00:00: [place] 00 Medical Branch lidocaine 2020-0 Yes [id number] 1{patch Apply 1 [facility] 3.5 % PtMd 3-11 } Patch to ity o f 00:00: area(s) [place] 00 daily. Medical Branch tiZANidine Yes [id number] 2mg Take 1 [facility] 2 mg tablet 3-11 [id number] tablet by i ty of 00:00: mouth [place] 00 every 8 Medical (eight) Branch hours as needed (muscle spasms). DULoxetine Yes [id number] 20mg Take 20 mg [facility] 20 mg CDRS 3-11 by mouth 2 ity of 00:00: (two) [place] 00 times Medical daily. Branch Diclofenac 0 Yes [id number] Apply to [facility] Sodium 3-11 area(s) 4 ity of (VOLTAREN) 00:00: (four) [place] 1 % gel 00 times Medical daily. Branch Apply 4 g qid Back Brace 0 Yes [id number] Use as [facility] Misc 3-11 directed ity of 00:00: [place] 00 Medical Branch lidocaine 2020-0 Yes [id number] 1{patch Apply 1 [facility] 3.5 % PtMd 3-11 } Patch to ity o f 00:00: area(s) [place] 00 daily. Medical Branch tiZANidine 0 Yes [id number] 2mg Take 1 [facility] 2 mg tablet 3-11 [id number] tablet by i ty of 00:00: mouth [place] 00 every 8 Medical (eight) Branch hours as needed (muscle spasms). DULoxetine 0 Yes [id number] 20mg Take 20 mg [facility] 20 mg CDRS 3-11 by mouth 2 ity of 00:00: (two) [place] 00 times Medical daily. Branch Diclofenac Yes [id number] Apply to [facility] Sodium 3-11 area(s) 4 ity of (VOLTAREN) 00:00: (four) [place] 1 % gel 00 times Medical daily. Branch Apply 4 g qid Back Brace Yes [id number] Use as [facility] Misc 3-11 directed ity of 00:00: [place] 00 Medical Branch lidocaine 2020-0 Yes [id number] 1{patch Apply 1 [facility] 3.5 % PtMd 3-11 } Patch to ity o f 00:00: area(s) [place] 00 daily. Medical Branch tiZANidine Yes [id number] 2mg Take 1 [facility] 2 mg tablet 3-11 [id number] tablet by i ty of 00:00: mouth [place] 00 every 8 Medical (eight) Branch hours as needed (muscle spasms). DULoxetine 0 Yes [id number] 20mg Take 20 mg [facility] 20 mg CDRS 3-11 by mouth 2 ity of 00:00: (two) [place] 00 times Medical daily. Branch Diclofenac 2020-0 Yes [id number] Apply to [facility] Sodium 3-11 area(s) 4 ity of (VOLTAREN) 00:00: (four) [place] 1 % gel 00 times Medical daily. Branch Apply 4 g qid Back Brace 0 Yes [id number] Use as [facility] Misc 3-11 directed ity of 00:00: [place] 00 Medical Branch lidocaine 2020-0 Yes [id number] 1{patch Apply 1 [facility] 3.5 % PtMd 3-11 } Patch to ity o f 00:00: area(s) [place] 00 daily. Medical Branch tiZANidine 0 Yes [id number] 2mg Take 1 [facility] 2 mg tablet 3-11 [id number] tablet by i ty of 00:00: mouth [place] 00 every 8 Medical (eight) Branch hours as needed (muscle spasms). DULoxetine 0 Yes [id number] 20mg Take 20 mg [facility] 20 mg CDRS 3-11 by mouth 2 ity of 00:00: (two) [place] 00 times Medical daily. Branch Diclofenac Yes [id number] Apply to [facility] Sodium 3-11 area(s) 4 ity of (VOLTAREN) 00:00: (four) [place] 1 % gel 00 times Medical daily. Branch Apply 4 g qid Back Brace Yes [id number] Use as [facility] Misc 3-11 directed ity of 00:00: [place] 00 Medical Branch lidocaine 0 Yes [id number] 1{patch Apply 1 [facility] 3.5 % PtMd 3-11 } Patch to ity o f 00:00: area(s) [place] 00 daily. Medical Branch tiZANidine Yes [id number] 2mg Take 1 [facility] 2 mg tablet 3-11 [id number] tablet by i ty of 00:00: mouth [place] 00 every 8 Medical (eight) Branch hours as needed (muscle spasms). DULoxetine Yes [id number] 20mg Take 20 mg [facility] 20 mg CDRS 3-11 by mouth 2 ity of 00:00: (two) [place] 00 times Medical daily. Branch Diclofenac Yes [id number] Apply to [facility] Sodium 3-11 area(s) 4 ity of (VOLTAREN) 00:00: (four) [place] 1 % gel 00 times Medical daily. Branch Apply 4 g qid Back Brace Yes [id number] Use as [facility] Misc 3-11 directed ity of 00:00: [place] 00 Medical Branch lidocaine 2020-0 Yes [id number] 1{patch Apply 1 [facility] 3.5 % PtMd 3-11 } Patch to ity o f 00:00: area(s) [place] 00 daily. Medical Branch tiZANidine 0 Yes [id number] 2mg Take 1 [facility] 2 mg tablet 3-11 [id number] tablet by i ty of 00:00: mouth [place] 00 every 8 Medical (eight) Branch hours as needed (muscle spasms). DULoxetine Yes [id number] 20mg Take 20 mg [facility] 20 mg CDRS 3-11 by mouth 2 ity of 00:00: (two) [place] 00 times Medical daily. Branch Diclofenac Yes [id number] Apply to [facility] Sodium 3-11 area(s) 4 ity of (VOLTAREN) 00:00: (four) [place] 1 % gel 00 times Medical daily. Branch Apply 4 g qid Back Brace Yes [id number] Use as [facility] Misc 3-11 directed ity of 00:00: [place] 00 Medical Branch lidocaine Yes [id number] 1{patch Apply 1 [facility] 3.5 % PtMd 3-11 } Patch to ity o f 00:00: area(s) [place] 00 daily. Medical Branch ibuprofen 2020- No [id number] 600mg Take 1 [facility] 600 mg 3-11 06-08 tablet by ity of tablet 00:00: 00:00 mouth [place] 00 :00 every 8 Medical (eight) Branch hours as needed for Pain (scale 4-6). ibuprofen 2020- No [id number] 600mg Take 1 [facility] 600 mg 3-11 06-08 tablet by ity of tablet 00:00: 00:00 mouth [place] 00 :00 every 8 Medical (eight) Branch hours as needed for Pain (scale 4-6). lisinopriL- Yes [id number] 1{tbl} Take 1 [facility] hydrochloro 3-04 tablet by ity of thiazide 00:00: mouth [place] 10-12.5 mg 00 daily. Medical per tablet Branch nicotine 14 Yes [id number] 1{patch Apply 1 [facility] mg/24 hr 3-04 } Patch to ity of patch 00:00: area(s) [place] 00 every 24 Medical (twenty-fo Branch ur) hours. Apply 21mg patch daily x 6 weeks; then apply 14mf patch daily x 2 weeks; then apply 7mg patch daily x 2 weeks. Stop smoking on initiation of therapy nicotine 21 Yes [id number] 1{patch Apply 1 [facility] mg/24 hr 3-04 } Patch to ity of patch 00:00: area(s) [place] 00 daily. Medical Apply 21mg Branch patch daily x 6 weeks; then apply 14mg patch daily x 2 weeks; then apply 7mg patch daily x 2 weeks. Stop smoking on initiation of therapy nicotine 7 Yes [id number] 1{patch Apply 1 [facility] mg/24 hr 3-04 } Patch to ity of patch 00:00: area(s) [place] 00 every 24 Medical (twenty-fo Branch ur) hours. Apply 21mg patch daily x 6 weeks; then apply 14mf patch daily x 2 weeks; then apply 7mg patch daily x 2 weeks. Stop smoking on initiation of therapy FLUoxetine Yes [id number] 10mg Take 1 [facility] 10 mg 3-04 tablet by ity of tablet 00:00: mouth [place] 00 daily. Medical Branch hydrOXYzine Yes [id number] 50mg Take 1 [facility] n[facility] 50 mg 3-04 tablet by ity of tablet 00:00: mouth 3 [place] 00 (three) Medical times Branch daily as needed for Anxiety. acetaminoph Yes [id number] 650mg Take 1 [facility] en 650 mg 3-04 tablet by ity o f CR tablet 00:00: mouth [place] 00 every 8 Medical (eight) Branch hours as needed for Pain or Fever. lisinopriL- Yes [id number] 1{tbl} Take 1 [facility] hydrochloro 3-04 tablet by ity of thiazide 00:00: mouth [place] 10-12.5 mg 00 daily. Medical per tablet Branch nicotine Yes [id number] 1{patch Apply 1 [facility] mg/24 hr 3-04 } Patch to ity of patch 00:00: area(s) [place] 00 every 24 Medical (twenty- Branch ur) hours. Apply 21mg patch daily x 6 weeks; then apply 14mf patch daily x 2 weeks; then apply 7mg patch daily x 2 weeks. Stop smoking on initiation of therapy nicotine Yes [id number] 1{patch Apply 1 [facility] mg/24 hr 3-04 } Patch to ity of patch 00:00: area(s) [place] 00 daily. Medical Apply 21mg Branch patch daily x 6 weeks; then apply 14mg patch daily x 2 weeks; then apply 7mg patch daily x 2 weeks. Stop smoking on initiation of therapy nicotine 7 Yes [id number] 1{patch Apply 1 [facility] mg/24 hr 3-04 } Patch to ity of patch 00:00: area(s) [place] 00 every 24 Medical (twenty-fo Branch ur) hours. Apply 21mg patch daily x 6 weeks; then apply 14mf patch daily x 2 weeks; then apply 7mg patch daily x 2 weeks. Stop smoking on initiation of therapy FLUoxetine Yes [id number] 10mg Take 1 [facility] 10 mg 3-04 tablet by ity of tablet 00:00: mouth [place] 00 daily. Medical Branch hydrOXYzine Yes [id number] 50mg Take 1 [facility] nivers 50 mg 3-04 tablet by ity of tablet 00:00: mouth 3 [place] 00 (three) Medical times Branch daily as needed for Anxiety. acetaminoph Yes [id number] 650mg Take 1 [facility] en 650 mg 3-04 tablet by ity o f CR tablet 00:00: mouth [place] 00 every 8 Medical (eight) Branch hours as needed for Pain or Fever. lisinopriL- Yes [id number] 1{tbl} Take 1 [facility] hydrochloro 3-04 tablet by ity of thiazide 00:00: mouth [place] 10-12.5 mg 00 daily. Medical per tablet Branch nicotine Yes [id number] 1{patch Apply 1 [facility] mg/24 hr 3-04 } Patch to ity of patch 00:00: area(s) [place] 00 every 24 Medical (twenty-fo Branch ur) hours. Apply 21mg patch daily x 6 weeks; then apply 14mf patch daily x 2 weeks; then apply 7mg patch daily x 2 weeks. Stop smoking on initiation of therapy nicotine Yes [id number] 1{patch Apply 1 [facility] mg/24 hr 3-04 } Patch to ity of patch 00:00: area(s) [place] 00 daily. Medical Apply 21mg Branch patch daily x 6 weeks; then apply 14mg patch daily x 2 weeks; then apply 7mg patch daily x 2 weeks. Stop smoking on initiation of therapy nicotine Yes [id number] 1{patch Apply 1 [facility] mg/24 hr 3-04 } Patch to ity of patch 00:00: area(s) [place] 00 every 24 Medical (twenty-fo Branch ur) hours. Apply 21mg patch daily x 6 weeks; then apply 14mf patch daily x 2 weeks; then apply 7mg patch daily x 2 weeks. Stop smoking on initiation of therapy hydrOXYzine Yes [id number] 50mg Take 1 [facility] nivers 50 mg 3-04 tablet by ity of tablet 00:00: mouth 3 [place] 00 (three) Medical times Branch daily as needed for Anxiety. acetaminoph Yes [id number] 650mg Take 1 [facility] en 650 mg 3-04 tablet by ity o f CR tablet 00:00: mouth [place] 00 every 8 Medical (eight) Branch hours as needed for Pain or Fever. lisinopriL- Yes [id number] 1{tbl} Take 1 [facility] hydrochloro 3-04 tablet by ity of thiazide 00:00: mouth [place] 10-12.5 mg 00 daily. Medical per tablet Branch nicotine Yes [id number] 1{patch Apply 1 [facility] mg/24 hr 3-04 } Patch to ity of patch 00:00: area(s) [place] 00 every 24 Medical (twenty-fo Branch ur) hours. Apply 21mg patch daily x 6 weeks; then apply 14mf patch daily x 2 weeks; then apply 7mg patch daily x 2 weeks. Stop smoking on initiation of therapy nicotine Yes [id number] 1{patch Apply 1 [facility] mg/24 hr 3-04 } Patch to ity of patch 00:00: area(s) [place] 00 daily. Medical Apply 21mg Branch patch daily x 6 weeks; then apply 14mg patch daily x 2 weeks; then apply 7mg patch daily x 2 weeks. Stop smoking on initiation of therapy nicotine 7 Yes [id number] 1{patch Apply 1 [facility] mg/24 hr 3-04 } Patch to ity of patch 00:00: area(s) [place] 00 every 24 Medical (twenty-fo Branch ur) hours. Apply 21mg patch daily x 6 weeks; then apply 14mf patch daily x 2 weeks; then apply 7mg patch daily x 2 weeks. Stop smoking on initiation of therapy hydrOXYzine Yes [id number] 50mg Take 1 [facility] nivers 50 mg 3-04 tablet by ity of tablet 00:00: mouth 3 [place] 00 (three) Medical times Branch daily as needed for Anxiety. acetaminoph Yes [id number] 650mg Take 1 [facility] en 650 mg 3-04 tablet by ity o f CR tablet 00:00: mouth [place] 00 every 8 Medical (eight) Branch hours as needed for Pain or Fever. lisinopriL- Yes [id number] 1{tbl} Take 1 [facility] hydrochloro 3-04 tablet by ity of thiazide 00:00: mouth [place] 10-12.5 mg 00 daily. Medical per tablet Branch nicotine Yes [id number] 1{patch Apply 1 [facility] mg/24 hr 3-04 } Patch to ity of patch 00:00: area(s) [place] 00 every 24 Medical (twenty-fo Branch ur) hours. Apply 21mg patch daily x 6 weeks; then apply 14mf patch daily x 2 weeks; then apply 7mg patch daily x 2 weeks. Stop smoking on initiation of therapy nicotine Yes [id number] 1{patch Apply 1 [facility] mg/24 hr 3-04 } Patch to ity of patch 00:00: area(s) [place] 00 daily. Medical Apply 21mg Branch patch daily x 6 weeks; then apply 14mg patch daily x 2 weeks; then apply 7mg patch daily x 2 weeks. Stop smoking on initiation of therapy nicotine Yes [id number] 1{patch Apply 1 [facility] mg/24 hr 3-04 } Patch to ity of patch 00:00: area(s) [place] 00 every 24 Medical (twenty-fo Branch ur) hours. Apply 21mg patch daily x 6 weeks; then apply 14mf patch daily x 2 weeks; then apply 7mg patch daily x 2 weeks. Stop smoking on initiation of therapy hydrOXYzine Yes [id number] 50mg Take 1 [facility] nivers 50 mg 3-04 tablet by ity of tablet 00:00: mouth 3 [place] 00 (three) Medical times Branch daily as needed for Anxiety. acetaminoph Yes [id number] 650mg Take 1 [facility] en 650 mg 3-04 tablet by ity o f CR tablet 00:00: mouth [place] 00 every 8 Medical (eight) Branch hours as needed for Pain or Fever. lisinopriL- Yes [id number] 1{tbl} Take 1 [facility] hydrochloro 3-04 tablet by ity of thiazide 00:00: mouth [place] 10-12.5 mg 00 daily. Medical per tablet Branch nicotine Yes [id number] 1{patch Apply 1 [facility] mg/24 hr 3-04 } Patch to ity of patch 00:00: area(s) [place] 00 every 24 Medical (twenty-fo Branch ur) hours. Apply 21mg patch daily x 6 weeks; then apply 14mf patch daily x 2 weeks; then apply 7mg patch daily x 2 weeks. Stop smoking on initiation of therapy nicotine Yes [id number] 1{patch Apply 1 [facility] mg/24 hr 3-04 } Patch to ity of patch 00:00: area(s) [place] 00 daily. Medical Apply 21mg Branch patch daily x 6 weeks; then apply 14mg patch daily x 2 weeks; then apply 7mg patch daily x 2 weeks. Stop smoking on initiation of therapy nicotine Yes [id number] 1{patch Apply 1 [facility] mg/24 hr 3-04 } Patch to ity of patch 00:00: area(s) [place] 00 every 24 Medical (twenty-fo Branch ur) hours. Apply 21mg patch daily x 6 weeks; then apply 14mf patch daily x 2 weeks; then apply 7mg patch daily x 2 weeks. Stop smoking on initiation of therapy hydrOXYzine Yes [id number] 50mg Take 1 [facility] nivers 50 mg 3-04 tablet by ity of tablet 00:00: mouth 3 [place] 00 (three) Medical times Branch daily as needed for Anxiety. acetaminoph Yes [id number] 650mg Take 1 [facility] en 650 mg 3-04 tablet by ity o f CR tablet 00:00: mouth [place] 00 every 8 Medical (eight) Branch hours as needed for Pain or Fever. lisinopriL- Yes [id number] 1{tbl} Take 1 [facility] hydrochloro 3-04 tablet by ity of thiazide 00:00: mouth [place] 10-12.5 mg 00 daily. Medical per tablet Branch nicotine Yes [id number] 1{patch Apply 1 [facility] mg/24 hr 3-04 } Patch to ity of patch 00:00: area(s) [place] 00 every 24 Medical (twenty-fo Branch ur) hours. Apply 21mg patch daily x 6 weeks; then apply 14mf patch daily x 2 weeks; then apply 7mg patch daily x 2 weeks. Stop smoking on initiation of therapy nicotine Yes [id number] 1{patch Apply 1 [facility] mg/24 hr 3-04 } Patch to ity of patch 00:00: area(s) [place] 00 daily. Medical Apply 21mg Branch patch daily x 6 weeks; then apply 14mg patch daily x 2 weeks; then apply 7mg patch daily x 2 weeks. Stop smoking on initiation of therapy nicotine 7 Yes [id number] 1{patch Apply 1 [facility] mg/24 hr 3-04 } Patch to ity of patch 00:00: area(s) [place] 00 every 24 Medical (twenty-fo Branch ur) hours. Apply 21mg patch daily x 6 weeks; then apply 14mf patch daily x 2 weeks; then apply 7mg patch daily x 2 weeks. Stop smoking on initiation of therapy hydrOXYzine Yes [id number] 50mg Take 1 [facility] nivers 50 mg 3-04 tablet by ity of tablet 00:00: mouth 3 [place] 00 (three) Medical times Branch daily as needed for Anxiety. acetaminoph Yes [id number] 650mg Take 1 [facility] en 650 mg 3-04 tablet by ity o f CR tablet 00:00: mouth [place] 00 every 8 Medical (eight) Branch hours as needed for Pain or Fever. lisinopriL- Yes [id number] 1{tbl} Take 1 [facility] hydrochloro 3-04 tablet by ity of thiazide 00:00: mouth [place] 10-12.5 mg 00 daily. Medical per tablet Branch nicotine Yes [id number] 1{patch Apply 1 [facility] mg/24 hr 3-04 } Patch to ity of patch 00:00: area(s) [place] 00 every 24 Medical (twenty-fo Branch ur) hours. Apply 21mg patch daily x 6 weeks; then apply 14mf patch daily x 2 weeks; then apply 7mg patch daily x 2 weeks. Stop smoking on initiation of therapy nicotine Yes [id number] 1{patch Apply 1 [facility] mg/24 hr 3-04 } Patch to ity of patch 00:00: area(s) [place] 00 daily. Medical Apply 21mg Branch patch daily x 6 weeks; then apply 14mg patch daily x 2 weeks; then apply 7mg patch daily x 2 weeks. Stop smoking on initiation of therapy nicotine 7 2020- Yes [id number] 1{patch Apply 1 [facility] mg/24 hr 3-04 } Patch to ity of patch 00:00: area(s) [place] 00 every 24 Medical (twenty-fo Branch ur) hours. Apply 21mg patch daily x 6 weeks; then apply 14mf patch daily x 2 weeks; then apply 7mg patch daily x 2 weeks. Stop smoking on initiation of therapy hydrOXYzine Yes [id number] 50mg Take 1 [facility] nivers 50 mg 3-04 tablet by ity of tablet 00:00: mouth 3 [place] 00 (three) Medical times Branch daily as needed for Anxiety. acetaminoph Yes [id number] 650mg Take 1 [facility] en 650 mg 3-04 tablet by ity o f CR tablet 00:00: mouth [place] 00 every 8 Medical (eight) Branch hours as needed for Pain or Fever. lisinopriL- Yes [id number] 1{tbl} Take 1 [facility] hydrochloro 3-04 tablet by ity of thiazide 00:00: mouth [place] 10-12.5 mg 00 daily. Medical per tablet Branch nicotine Yes [id number] 1{patch Apply 1 [facility] mg/24 hr 3-04 } Patch to ity of patch 00:00: area(s) [place] 00 every 24 Medical (twenty-fo Branch ur) hours. Apply 21mg patch daily x 6 weeks; then apply 14mf patch daily x 2 weeks; then apply 7mg patch daily x 2 weeks. Stop smoking on initiation of therapy nicotine Yes [id number] 1{patch Apply 1 [facility] mg/24 hr 3-04 } Patch to ity of patch 00:00: area(s) [place] 00 daily. Medical Apply 21mg Branch patch daily x 6 weeks; then apply 14mg patch daily x 2 weeks; then apply 7mg patch daily x 2 weeks. Stop smoking on initiation of therapy nicotine Yes [id number] 1{patch Apply 1 [facility] mg/24 hr 3-04 } Patch to ity of patch 00:00: area(s) [place] 00 every 24 Medical (twenty-fo Branch ur) hours. Apply 21mg patch daily x 6 weeks; then apply 14mf patch daily x 2 weeks; then apply 7mg patch daily x 2 weeks. Stop smoking on initiation of therapy hydrOXYzine Yes [id number] 50mg Take 1 [facility] nivers 50 mg 3-04 tablet by ity of tablet 00:00: mouth 3 [place] 00 (three) Medical times Branch daily as needed for Anxiety. acetaminoph Yes [id number] 650mg Take 1 [facility] en 650 mg 3-04 tablet by ity o f CR tablet 00:00: mouth [place] 00 every 8 Medical (eight) Branch hours as needed for Pain or Fever. lisinopriL- Yes [id number] 1{tbl} Take 1 [facility] hydrochloro 3-04 tablet by ity of thiazide 00:00: mouth [place] 10-12.5 mg 00 daily. Medical per tablet Branch nicotine Yes [id number] 1{patch Apply 1 [facility] mg/24 hr 3-04 } Patch to ity of patch 00:00: area(s) [place] 00 every 24 Medical (twenty-fo Branch ur) hours. Apply 21mg patch daily x 6 weeks; then apply 14mf patch daily x 2 weeks; then apply 7mg patch daily x 2 weeks. Stop smoking on initiation of therapy nicotine Yes [id number] 1{patch Apply 1 [facility] mg/24 hr 3-04 } Patch to ity of patch 00:00: area(s) [place] 00 daily. Medical Apply 21mg Branch patch daily x 6 weeks; then apply 14mg patch daily x 2 weeks; then apply 7mg patch daily x 2 weeks. Stop smoking on initiation of therapy nicotine 7 Yes [id number] 1{patch Apply 1 [facility] mg/24 hr 3-04 } Patch to ity of patch 00:00: area(s) [place] 00 every 24 Medical (twenty-fo Branch ur) hours. Apply 21mg patch daily x 6 weeks; then apply 14mf patch daily x 2 weeks; then apply 7mg patch daily x 2 weeks. Stop smoking on initiation of therapy hydrOXYzine Yes [id number] 50mg Take 1 [facility] nivers 50 mg 3-04 tablet by ity of tablet 00:00: mouth 3 [place] 00 (three) Medical times Branch daily as needed for Anxiety. acetaminoph Yes [id number] 650mg Take 1 [facility] en 650 mg 3-04 tablet by ity o f CR tablet 00:00: mouth [place] 00 every 8 Medical (eight) Branch hours as needed for Pain or Fever. hydrOXYzine 2021-0 Yes [id number] 50mg Take 1 [facility] nivers 50 mg 3-04 tablet by ity of tablet 00:00: mouth 3 [place] 00 (three) Medical times Branch daily as needed for Anxiety. acetaminoph 2020-0 Yes [id number] 650mg Take 1 [facility] en 650 mg 3-04 tablet by ity o f CR tablet 00:00: mouth [place] 00 every 8 Medical (eight) Branch hours as needed for Pain or Fever. hydrOXYzine 2020-0 Yes [id number] 50mg Take 1 [facility] nivers 50 mg 3-04 tablet by ity of tablet 00:00: mouth 3 [place] 00 (three) Medical times Branch daily as needed for Anxiety. acetaminoph 2020-0 Yes [id number] 650mg Take 1 [facility] en 650 mg 3-04 tablet by ity o f CR tablet 00:00: mouth [place] 00 every 8 Medical (eight) Branch hours as needed for Pain or Fever. hydrOXYzine 2020-0 Yes [id number] 50mg Take 1 [facility] nivers 50 mg 3-04 tablet by ity of tablet 00:00: mouth 3 00 (three) Medical times Branch daily as needed for Anxiety. acetaminoph 2020-0 Yes [id number] 650mg Take 1 [facility] en 650 mg 3-04 tablet by ity o f CR tablet 00:00: mouth [place] 00 every 8 Medical (eight) Branch hours as needed for Pain or Fever. hydrOXYzine 2020-0 Yes [id number] 50mg Take 1 [facility] nivers 50 mg 3-04 tablet by ity of tablet 00:00: mouth 3 00 (three) Medical times Branch daily as needed for Anxiety. acetaminoph 2020-0 Yes [id number] 650mg Take 1 [facility] en 650 mg 3-04 tablet by ity o f CR tablet 00:00: mouth [place] 00 every 8 Medical (eight) Branch hours as needed for Pain or Fever. hydrOXYzine 2020-0 Yes [id number] 50mg Take 1 [facility] nivers 50 mg 3-04 tablet by ity of tablet 00:00: mouth 3 [place] 00 (three) Medical times Branch daily as needed for Anxiety. acetaminoph 2020-0 Yes [id number] 650mg Take 1 [facility] en 650 mg 3-04 tablet by ity o f CR tablet 00:00: mouth [place] 00 every 8 Medical (eight) Branch hours as needed for Pain or Fever. hydrOXYzine 0 Yes [id number] 50mg Take 1 U nivers 50 mg 3-04 tablet by ity of tablet 00:00: mouth 3 (three) Medical times Branch daily as needed for Anxiety. acetaminoph 0 Yes [id number] 650mg Take 1 Univers en 650 mg 3-04 tablet by ity o f CR tablet 00:00: mouth [place] 00 every 8 Medical (eight) Branch hours as needed for Pain or Fever. hydrOXYzine 0 Yes [id number] 50mg Take 1 U nivers 50 mg 3-04 tablet by ity of tablet 00:00: mouth 3 00 (three) Medical times Branch daily as needed for Anxiety. acetaminoph Yes [id number] 650mg Take 1 Univers en 650 mg 3-04 tablet by ity o f CR tablet 00:00: mouth 00 every 8 Medical (eight) Branch hours as needed for Pain or Fever. hydrOXYzine Yes [id number] 50mg Take 1 U nivers 50 mg 3-04 tablet by ity of tablet 00:00: mouth 3 00 (three) Medical times Branch daily as needed for Anxiety. acetaminoph 0 Yes [id number] 650mg Take 1 Univers en 650 mg 3-04 tablet by ity o f CR tablet 00:00: mouth [place] 00 every 8 Medical (eight) Branch hours as needed for Pain or Fever. hydrOXYzine 0 Yes [id number] 50mg Take 1 U nivers 50 mg 3-04 tablet by ity of tablet 00:00: mouth (three) Medical times Branch daily as needed for Anxiety. acetaminoph 0 Yes [id number] 650mg Take 1 Univers en 650 mg 3-04 tablet by ity o f CR tablet 00:00: mouth [place] 00 every 8 Medical (eight) Branch hours as needed for Pain or Fever. lisinopriL- 2020-0 Yes [id number] 1{tbl} Take 1 Univers hydrochloro 3-04 tablet by ity of thiazide 00:00: mouth [place] 10-12.5 mg 00 daily. Medical per tablet Branch nicotine 14 2020-0 Yes [id number] 1{patch Apply 1 Univers mg/24 hr 3-04 } Patch to ity of patch 00:00: area(s) [place] 00 every 24 Medical (twenty-fo Branch ur) hours. Apply 21mg patch daily x 6 weeks; then apply 14mf patch daily x 2 weeks; then apply 7mg patch daily x 2 weeks. Stop smoking on initiation of therapy nicotine 21 Yes [id number] 1{patch Apply 1 Univers mg/24 hr 3-04 } Patch to ity of patch 00:00: area(s) [place] 00 daily. Medical Apply 21mg Branch patch daily x 6 weeks; then apply 14mg patch daily x 2 weeks; then apply 7mg patch daily x 2 weeks. Stop smoking on initiation of therapy nicotine 7 Yes [id number] 1{patch Apply 1 Univers mg/24 hr 3-04 } Patch to ity of patch 00:00: [facility]() [place] 00 every 24 Medical (twenty-fo Branch ur) hours. Apply 21mg patch daily x 6 weeks; then apply 14mf patch daily x 2 weeks; then apply 7mg patch daily x 2 weeks. Stop smoking on initiation of therapy FLUoxetine Yes [id number] 10mg Take 1 Univers 10 mg 3-04 tablet by ity of tablet 00:00: mouth [place] 00 daily. Medical Branch hydrOXYzine Yes [id number] 50mg Take 1 U nivers 50 mg 3-04 tablet by ity of tablet 00:00: mouth 3 [place] 00 (three) Medical times Branch daily as needed for Anxiety. acetaminoph Yes [id number] 650mg Take 1 Univers en 650 mg 3-04 tablet by ity o f CR tablet 00:00: mouth [place] 00 every 8 Medical (eight) Branch hours as needed for Pain or Fever. lisinopriL- 2020- No [id number] 1{tbl} Take 1 Univers hydrochloro 3-04 06-08 tablet by it y of thiazide 00:00: 00:00 mouth [place] 10-12.5 mg 00 :00 daily. Medical per tablet Branch nicotine 2020- No [id number] 1{patch Apply 1 Univers mg/24 hr 3-04 06-08 } Patch to ity of patch 00:00: 00:00 [facility](s) [place] 00 :00 every 24 Medical (twenty-fo Branch ur) hours. Apply 21mg patch daily x 6 weeks; then apply 14mf patch daily x 2 weeks; then apply 7mg patch daily x 2 weeks. Stop smoking on initiation of therapy nicotine 2020- No [id number] 1{patch Apply 1 Univers mg/24 hr 3-04 06-08 } Patch to ity of patch 00:00: 00:00 [facility](s) [place] 00 :00 daily. Medical Apply 21mg Branch patch daily x 6 weeks; then apply 14mg patch daily x 2 weeks; then apply 7mg patch daily x 2 weeks. Stop smoking on initiation of therapy nicotine 2020- No [id number] 1{patch Apply 1 Univers mg/24 hr 3- 06-08 } Patch to ity of patch 00:00: 00:00 [facility](s) [place] 00 :00 every 24 Medical (twenty-fo Branch ur) hours. Apply 21mg patch daily x 6 weeks; then apply 14mf patch daily x 2 weeks; then apply 7mg patch daily x 2 weeks. Stop smoking on initiation of therapy lisinopriL- 2020- No [id number] 1{tbl} Take 1 Univers hydrochloro -06 26-08 tablet by it y of thiazide 00:00: 00:00 mouth [place] 10-12.5 mg 00 :00 daily. Medical per tablet Branch nicotine 2020- No [id number] 1{patch Apply 1 Univers mg/24 hr 3- 06-08 } Patch to ity of patch 00:00: 00:00 [facility](s) [place] 00 :00 every 24 Medical (twenty-fo Branch ur) hours. Apply 21mg patch daily x 6 weeks; then apply 14mf patch daily x 2 weeks; then apply 7mg patch daily x 2 weeks. Stop smoking on initiation of therapy nicotine 2020- No [id number] 1{patch Apply 1 Univers mg/24 hr 3- 06-08 } Patch to ity of patch 00:00: 00:00 [facility](s) [place] 00 :00 daily. Medical Apply 21mg Branch patch daily x 6 weeks; then apply 14mg patch daily x 2 weeks; then apply 7mg patch daily x 2 weeks. Stop smoking on initiation of therapy nicotine 2020- No [id number] 1{patch Apply 1 Univers mg/24 hr 3-04 06-08 } Patch to ity of patch 00:00: 00:00 area(s) [place] 00 :00 every 24 Medical (twenty-fo Branch ur) hours. Apply 21mg patch daily x 6 weeks; then apply 14mf patch daily x 2 weeks; then apply 7mg patch daily x 2 weeks. Stop smoking on initiation of therapy FLUoxetine 2020- No [id number] 10mg Take 1 Univers 10 mg 3-04 03-11 tablet by ity of tablet 00:00: 00:00 mouth [place] 00 :00 daily. Medical Branch FLUoxetine 2020- No [id number] 10mg Take 1 Univers 10 mg 3-04 03-11 tablet by ity of tablet 00:00: 00:00 mouth [place] 00 :00 daily. Medical Branch Vital Signs Vital Name Observation Time Observation Value Comments Source Systolic blood 2022-01-04 19:53:00 171 mm[Hg] Univer sity of [facility] Diastolic blood 2022-01-04 19:53:00 106 mm[Hg] Unive rsity [facility] Heart rate 2022-01-04 19:53:00 82 /min [facility] Body temperature 2022-01-04 19:53:00 37 Nikki [facility] Respiratory rate 2022-01-04 19:53:00 16 /min [facility] Body height 2022-01-04 19:53:00 188 cm [facility] Body weight 2022-01-04 19:53:00 82.963 kg [facility] BMI 2022-01-04 19:53:00 23.48 kg/m2 [facility] Oxygen saturation in 2022-01-04 19:53:00 98 /min [facility] Arterial blood by [facility] Pulse oximetry Branch Body temperature 2021-12-26 19:46:00 37.22 [facility]ki [facility] 2021-12-26 19:44:00 169 mm[Hg] Univer sity of [facility] Diastolic blood 2021-12-26 19:44:00 116 mm[Hg] Unive rsity [facility] Heart rate 2021-12-26 19:44:00 84 /min [facility] Respiratory rate 2021-12-26 19:44:00 16 /min Univ ersity of [place] [facility] Oxygen saturation in 2021-12-26 19:44:00 99 /min University of Arterial blood by [place] [facility] Pulse oximetry Branch Systolic blood 2020-08-28 15:55:00 133 mm[Hg] Univer sity of pressure [place] [facility] Diastolic blood 2020-08-28 15:55:00 89 mm[Hg] Unive rsity of pressure [place] [facility] Heart rate 2020-08-28 15:55:00 71 /min [facility]i ty [facility] [place] [facility] Body height 2020-08-28 15:55:00 188 cm [facility] [place] [facility] Body weight 2020-08-28 15:55:00 82.101 kg [facility]i ty [facility] [place] [facility] BMI 2020-08-28 15:55:00 23.24 kg/m2 [facility] [place] [facility] Oxygen saturation in 2020-08-28 15:55:00 97 /min University of Arterial blood by [facility] Pulse oximetry Branch Systolic blood 2020-05-31 17:38:00 128 mm[Hg] Univer sity of pressure [place] [facility] Diastolic blood 2020-05-31 17:38:00 70 mm[Hg] Unive rsity of [facility] [place] [facility] Heart rate 2020-05-31 17:38:00 79 /min [facility]i ty [facility] [place] [facility] Respiratory rate 2020-05-31 17:38:00 16 /min Univ ersity of [place] [facility] Body height 2020-05-31 17:38:00 188 cm [facility] [place] [facility] Body weight 2020-05-31 17:38:00 84.414 kg [facility] [place] [facility] BMI 2020-05-31 17:38:00 23.89 kg/m2 [facility] [place] [facility] Oxygen saturation in 2020-05-31 17:38:00 98 /min University of Arterial blood by [facility] Pulse oximetry Branch Systolic blood 2020-05-24 15:57:00 166 mm[Hg] Univer sity of pressure [place] [facility] Diastolic blood 2020-05-24 15:57:00 98 mm[Hg] Unive rsity of pressure [place] [facility] Heart rate 2020-05-24 15:57:00 66 /min [facility]i ty [facility] [place] [facility] Body temperature 2020-05-24 15:57:00 36.72 Nikki [facility] Respiratory rate 2020-05-24 15:57:00 18 /min [facility] Body height 2020-05-24 15:57:00 188 cm [facility] Body weight 2020-05-24 15:57:00 84.052 kg [facility] BMI 2020-05-24 15:57:00 23.79 kg/m2 [facility] Oxygen saturation in 2020-05-24 15:57:00 100 /min [facility] Arterial blood by [facility] Pulse oximetry Branch Procedures Procedure Date / Time Performing Clinician Source Performed REFERRAL- 2022-01-28 06:01:00 Doctor Unassigned, No [facility] REQUEST/RESPONSE Name [facility] CONSENT/REFUSAL FOR 2022-01-04 19:48:22 [facility] Name [facility] NOTICE OF PRIVACY 2021-12-26 19:41:55 Doctor Unassigned, No [facility] PRACTICES Name [facility] CONSENT/REFUSAL FOR 2021-12-26 19:41:40 [facility] XR SHOULDER 2+ VW LEFT 2020-05-31 19:28:19 Pancho Meier [facility] FREE T4 2020-05-24 17:47:00 Pancho Meier [facility] THYROID STIMULATING 2020-05-24 17:47:00 Pancho Meier [facility] HORMONE [facility] Branch COMP. METABOLIC PANEL 2020-05-24 17:47:00 Pancho Meier [facility] ([id number]) Medical Branch LIPID PANEL 2020-05-24 17:47:00 Renea [facility] ([id number])(TOTAL Medical Branch CHOLESTEROL, TRIGLYCERIDES, HDL) CBC WITH DIFF 2020-05-24 17:47:00 Pancho Meier [facility] FREE T3 2020-05-24 17:47:00 Pancho Meier [facility] Encounters Start End Encounter Admission Attending Care Care Encounter Source Date/Time Date/Time Type Type Clinicians Facility Department ID 2022-01-28 2022-01-28 Orders Doctor CARROLL 1.2.840.114 [id number] Univers 00:00:00 00:00:00 Only Unassigned, RAMONA [id number] ity of [place] [facility] 4.2.7.2.686 Ravi as [phone] [address] 2022-01-04 2022-01-04 Outpatient R TO [facility] [id number] Univers 15:00:00 15:09:31 BRITTNEE mitchell o f [facility] 2022-01-04 2022-01-04 Urgent Brittnee Ariza [facility] 1.2.840. 114 [id number] Univers 15:00:00 15:09:31 Care Unknown, Attending HEALTH [id number] ity of [place] [id number] Ravi as VITALIY?BLEA [phone] [address] MEDICAL OFFICE BUILDING 2022-01-04 2022-01-04 Orders Doctor HODGES 1.2.840.114 [id number] Univers 00:00:00 00:00:00 Only Unassigned, RAMONA [id number] ity of [place] [facility] 4.2.7.2.686 Ravi as [id number] [address] 2021-12-26 2021-12-26 Emergency X James BURTON [facility] ERT [id number] Univers 15:01:00 15:49:00 ity of [facility] 2021-12-26 2021-12-26 Emergency Trace Pinzon [facility] 1.2.840. 114 [id number] Univers 15:01:00 15:49:00 James Burton [id number] [facility] 4.2.7.2.686 [place] [facility] [phone] [facility] [address] 2021-12-26 2021-12-26 Orders Doctor HODGES 1.2.840.114 [id number] Univers 00:00:00 00:00:00 Only Unassigned, RAMONA [id number] ity of [place] [facility] 4.2.7.2.686 Ravi as [phone] [facility] [address] 2021-04-01 2021-04-01 Laboratory Only, Ang Db Test [facility] 1.2.8 40.114 [id number] Univers 19:30:00 19:45:00 Only Brittnee Ariza 350.1.13.10 ity elly [place] 4.2.7.2.686 Ravi as VITALIY?BLEA [id number] La dical KNEY [address] MEDICAL OFFICE BUILDING 2021-04-01 2021-04-01 [facility] [id number] Univers 19:30:00 19:41:28 BRITTNEE farzanatoya o f [facility] 2020-11-29 2020-11-29 Out[facility] [id number] Univers 15:40:00 15:40:00 PANCHO stephen [facility] 2020-10-18 2020-10-18 [facility] [id number] Univers 14:30:00 14:30:00 [facility] 2020-09-27 2020-09-27 [facility] [id number] Univers 10:30:00 10:30:00 LISSY [facility] 2020-09-04 2020-09-[address] [facility] [id number] Univers 09:30:00 09:30:00 ISSerenity ity [facility] [place] 2020-08-29 2020-08-[address] [facility] [id number] Univers 08:30:00 08:30:00 ISSerenity, ity [facility] [place] 2020-08-28 2020-08-28 [facility] 1.2.840.114 [id number] Univers 10:48:36 11:28:37 Visit Pancho Drew 350.1.13.10 i ty [place]2.7.2.[place] [phone] La duglas alfaro 044 Branch Building 2020-08-28 2020-08-28 [id number] Univers 10:40:00 11:28:37 PANCHO stephen [facility] 2020-08-28 2020-08-28 Telephone [facility] 1.2.840.114 [id number] Univers 00:00:00 00:00:00 Pancho Ibarra 350.1.13.10 i ty [place].2.[place] [phone] La dical nal 044 [facility] 2020-06-28 2020-06-28 Outpatient [facility] [id number] Univers 08:40:00 08:40:00 VALERIA yanesFormerly [facility] 2020-06-14 2020-06-14 Ancillary Sadie Salcedo [facility] 1.2.840. 114 [id number] Univers 09:20:28 10:11:26 Visit Valeria Edwards 350.1.13.10 ity [facility] 4.2.7.2.[place] [phone] [facility] 179 [facility] 2020-06-14 2020-06-14 Outpatient R GRACE [facility] [id number] Univers 09:00:00 09:00:00 VALERIA yanesFormerly [facility] 2020-06-05 2020-06-05 Patient [facility] 1.2.840.114 [id number] Univers 00:00:00 00:00:00 Secure Msg Pancho Ibarra 350.1.13.10 ity [place]2.7.2.[place] [phone] [place] dical nal 044 [facility] 2020-05-31 2020-05-31 [facility] 1.2.840.114 [id number] Univers 13:17:29 23:59:00 Encounter Pancho Ibarra 350.1.13.10 ity [place]2.7.2.686 [place] [phone] [facility] [address] 2020-05-31 2020-05-31 Office [facility] 1.2.840.114 [id number] Univers 13:04:50 13:06:57 Visit Pancho Ibarra 350.1.13.10 i ty [place]2.[place].2.[place] [phone] La dical nal 044 [facility] 2020-05-31 2020-05-31 Outpatient R [facility] [id number] [facility] 11:20:00 11:20:00 PANCHO mitchell [facility] 2020-05-24 2020-05-24 Buttonhole Tacker 2, Adc Lab [facility] 1.2.840.114 [id number] [facility] 11:44:17 11:59:17 Visit Pancho Meier 350.1.13.10 [place] [phone] La vinnyaz angelina 353 [facility] 2020-05-24 2020-05-24 [facility] 1.2.840.114 [id number] [facility] 09:48:44 11:16:21 Visit Pancho Ibarra 350.1.13.10 i ty [place] 4[place]2.7.2.[place] [phone] La dicaz nal 044 [facility] 2020-05-24 2020-05-24 Outpatient [facility] [id number] [facility] 10:00:00 10:00:00 PANCHO toya [facility] 2020-04-24 2020-04-24 Outpatient R [facility] [id number] Univers 18:20:00 18:20:00 [facility] Results Test Description Test Time Test Comments Results Result [facility] e Comments XR SHOULDER 2+ 2020-05-21 HISTORY: ?Pain. Unive rsity of VW LEFT 1 FINDINGS: 2 frontal [facility] 19:41:10 projection views of [facility] h left shoulder obtained with arm ininternal and external rotation positions showed no acute fracture ordislocation. No significant changes of arthritis or aggressive bone lesionsseen. No calcifications seen in the rotator cuff tendons. CONCLUSIONS: No acute fracture or dislocation in left shoulder. [facility], Radiant Results Inft User - 05/31/2020 1:42 PM CSTHISTORY: Pain.FINDINGS: 2 frontal projection views of left shoulder obtained with arm ininternal and external rotation positions showed no acute fracture ordislocation. No significant changes of arthritis or aggressive bone lesionsseen. No calcifications seen in the rotator cuff tendons.CONCLUSIONS : No acute fracture or dislocation in left shoulder. THYROID STIMULATING HORMONE 2020-05-24 19:39:00 Test Item Value Reference Range Interpretation Comme nts TSH (test code = 0169113412) See_Comment [Automated message] The system which generated this result transmitted ref erence range: 0.45 - 4.70 mIU/L. T he reference range was not used to interpret this result as kristen l/abnormal. Lab Interpretation (test code = Normal 03654-7) [facility]. METABOLIC PANEL ([id number])2020-05-24 19:32:00 Test Item Value Reference Range Interpretation Comments NA (test code = 140 mmol/L 135-145 6375901410) K (test code = 4.0 mmol/L 3.5-5 8035671456) CL (test code = 103 mmol/L 98-108 4280775563) CO2 TOTAL (test code = 27 mmol/L 23-31 9009297344) AGAP (test code = 2-16 0255496550) BUN (test code = 10 mg/dL 7-23 1178557443) GLUCOSE (test code = 83 mg/dL 70-110 2286783326) CREATININE (test code = 0.71 mg/dL 0.6-1.25 4632722611) TOTAL BILI (test code = 1.2 mg/dL 0.1-1.1 H 6063735301) CALCIUM (test code = 9.3 mg/dL 8.6-10.6 0261325315) T PROTEIN (test code = 7.4 g/dL 6.3-8.2 4672090064) ALBUMIN (test code = 4.8 g/dL 3.5-5 0499583091) ALK PHOS (test code = 55 U/L 34-122 5456587111) ALTv (test code = 24 U/L 5-50 1742-6) AST(SGOT) (test code = 25 U/L 13-40 5494280199) eGFR Calculation mL/min/1.73m2 (Non-) (test code = 0284956775) eGFR Calculation mL/min/1.73m2 () (test code = 5636246911) JUDY (test code = JUDY) Association of Glomerular Filtration Rate (GFR) and Staging of Kidney Disease* + --+ --+ ------+| GFR (mL/min/1.73 m2) ?| With Kidney Damage ?| ?Without Kidney Damage+ --------+ --------+ +| ?>90 ?| ?Stage one ?| ? Normal ?+ ---+ ---+ -------+| ?60-89 ?| ?Stage two ?| ? Decreased GFR ? + --+ --+ ------+| ?30-59 ?| ?Stage three ?| ? Stage three ? + --+ --+ ------+| ?15-29 ?| ?Stage four ? | ? Stage four ?+ ---+ ---+ -------+| ?<15 (or dialysis) ? ?| ?Stage five ? | ? Stage five ?+ ---+ ---+ -------+ *Each stage assumes the associated GFR level has been in effect for at least three months. ?Stages 1 to 5, with or without kidney disease, indicate chronic kidney disease. Notes: Determination of stages one and two (with eGFR >59mL/min/1.73 m2) requires estimation of kidney damage for at least three months as defined by structural or functional abnormalities of the kidney, manifested by either:Pathological abnormalities or Markers of kidney damage (including abnormalities in the composition of the blood or urine or abnormalities in imaging tests). Lab Interpretation Abnormal (test code = 26060-8) [id number]TOTAL CHOLESTEROL, TRIGLYCERIDES, HDL)2020-05-24 19:32:00 Test Item Value Reference Range Interpretation Comments CHOL (test code = 151 mg/dL 120-200 6637678225) HDL (test code = 40 mg/dL >40 L 6056291791) HDLC RATIO (test code = See_Comment [Au tomated message] 1713651526) The system Peek generated this result transmit elijah reference range : <=5.0. The refe rence range was not u sed to interpret th is result as normal/abnormal . TRIG (test code = 58 mg/dL 30-170 3792013158) LDL CHOL (test code = 99 mg/dL See_Comment [Auto mated message] 16491-6) The system Peek generated this result transmit elijah reference range : <=160. The refe rence range was not u sed to interpret th is result as normal/abnormal . VLDL (test code = 12 mg/dL 5-60 0599148455) Lab Interpretation (test Abnormal code = 51190-5) [facility] [id number] 19:25:00 Test Item Value Reference Range Interpretation Comments FREE T3 (test code = 2243986504) 4.75 pg/mL 2.77-5.27 Lab Interpretation (test code = Normal 12249-8) [facility] acute [facility] [id number] 19:25:00 Test Item Value Reference Range Interpretation Comments FREE T4 (test code = See_Comment [Autom ated message] 7129387453) The system Peek generated this result transmitted ref erence range: 0.78 - 2 .20 ng/dL:. The ref erence range was not u sed to interpret this result as normal/abnor mal. Lab Interpretation (test Normal code = 86293-3) [facility] WITH [id number] 19:08:00 Test Item Value Reference Range Interpretation Comments WBC (test code = See_Comment [Automated 6690-2) message] The sy stem which generated this result transmitted reference range : 4.20 - 10.70 10*3/?L. The reference range was not used to interpret this result as normal/abnormal . RBC (test code = See_Comment [Automated 549-8) message] The sy stem which generated this result transmitted reference range : 4.26 - 5.52 10*6/?L. The reference range was not used to interpret this result as normal/abnormal . HGB (test code = 13.8 g/dL 12.2-16.4 718-7) HCT (test code = 42.4 % 38.4-49.3 4544-3) MCV (test code = 97.0 fL 81.7-95.6 H 787-2) MCH (test code = 31.6 pg 26.1-32.7 785-6) MCHC (test code = 32.5 g/dL 31.2-35 786-4) RDW-SD (test code = 39.2 fL 38.5-51.6 68630-7) RDW-CV (test code = 10.8 % 12.1-15.4 L 788-0) PLT (test code = See_Comment L [Automated 777-3) message] The sy stem which generated this result transmitted reference range : 150 - 328 10*3/ ?L. The reference r treva was not used to interpret this result as normal/abnormal . MPV (test code = 12.6 fL 9.8-13 42075-8) IPF % (test code = 10.7 % 1.2-10.7 Platelet count 1013142848) measured by fluorescence method. NRBC/100 WBC (test See_Comment [Automat ed code = 1776104722) message] The system which generated this result transmitted reference range : 0.0 - 10.0 /100 WBCs. The refer ence range was not u sed to interpret th is result as normal/abnormal . NRBC x10^3 (test code <0.01 See_Comment [Auto mated = 7513699521) message] The s ystem which generated this result transmitted reference range : 10*3/?L. The reference range was not used to interpret this result as normal/abnormal . GRAN MAT (NEUT) % 41.6 % (test code = 770-8) IMM GRAN % (test code 0.40 % = 0449820436) LYMPH % (test code = 47.7 % 736-9) MONO % (test code = 7.4 % 5905-5) EOS % (test code = 2.5 % 713-8) BASO % (test code = 0.4 % 706-2) GRAN MAT x10^3(ANC) 2.13 10*3/uL 1.99-6.95 (test code = 4382936754) IMM GRAN x10^3 (test <0.03 0-0.06 code = 2560585105) LYMPH x10^3 (test code 2.44 10*3/uL 1.09-3.23 = 731-0) MONO x10^3 (test code 0.38 10*3/uL 0.36-1.02 = 742-7) EOS x10^3 (test code = 0.13 10*3/uL 0.06-0.53 711-2) BASO x10^3 (test code <0.03 0.01-0.09 = 704-7) Lab Interpretation Abnormal (test code = 66693-7) [facility]"
[2022-01-29] MEDS ORDERED: KETOROLAC 30 MG/ML INJ ONE (13:34)
[2022-01-29] MEDS ORDERED: METOCLOPRAMIDE 10 MG/2mL INJ ONE (13:34)
[2022-01-29] MEDS ORDERED: NA CHLORIDE 0.9% 1,000 ML ONE (13:34)
[2022-01-29] MEDS ORDERED: DIPHENHYDRAMINE 50 MG/ML VIAL ONE (13:34)
--- NOTE | 2022-01-29 14:11 | RAD REPORT ---
EXAM DESCRIPTION: CT - Head Brain Wo Cont - 01/29/2022 2:02 pm CLINICAL HISTORY: Headache, chronic, no new features COMPARISON: No comparisons TECHNIQUE: Axial 5 mm thick images of the head were obtained without IV contrast. All CT scans are performed using dose optimization technique as appropriate and may include automated exposure control or mA/KV adjustment according to patient size. FINDINGS: No intracranial hemorrhage, mass, edema or shift of mid-line structures. No acute infarcti on changes seen. No abnormal extra-axial fluid collections. Ventricles are normal. Mastoid air cells and visualized portions of the paranasal sinuses are clear of acute finding. Small polyps or retention cysts are present in each maxillary sinus. No acute bony findings. IMPRESSION: Negative non-contrast CT head examination for acute or significant finding.
[2022-01-29 14:46] LABS: Urine Blood Negative (Negative); Urine Glucose Negative (Negative); Urine Protein Negative (Negative); Urine Specific Gravity 1.015 (1.005-1.030); Urine pH 7.5 (5.0-7.0)
[2022-01-29] MEDS ORDERED: TETRACAINE HCL 0.5% 4ML OPTH ONE (15:51)
--- NOTE | 2022-01-29 16:17 | ER ---
Nurse's Notes [facility] Name: Cm Garduno Age: 41 yrs Sex: Male : 1980 Arrival Date: 01/29/2022 Time: 11:28 Bed 13 Private MD: Diagnosis: Headache Presentation: 01/29 11:48 Chief complaint: Patient states: right side of head has been hurting for over a month iw and has MRI scheduled for next, is sensitive to light. Ebola Screen: Patient negative for fever greater than or equal to 101.5 degrees Fahrenheit, and additional compatible Ebola Virus Disease symptoms Patient denies exposure to infectious person. Patient denies travel to an Ebola-affected area in the 21 days before illness onset. No symptoms or risks identified at this time. Initial Sepsis Screen: Does the patient meet any 2 criteria? No. Patient's initial sepsis screen is negative. Does the patient have a suspected source of infection? No. Patient's initial sepsis screen is negative. Risk Assessment: Do you want to hurt yourself or someone else? Patient reports no desire to harm self or others. Onset of symptoms was December 2021. 11:48 Method Of Arrival: Ambulatory iw 11:48 Acuity: KRISTA 3 iw 12:00 Coronavirus screen: At this time, the client does not indicate any symptoms associated ko1 with coronavirus-19. Triage Assessment: 12:00 Headache History: The patient has had previous headaches and this one is similar to ko1 previous episodes. General: Appears in no apparent distress. uncomfortable, Behavior is calm, cooperative, appropriate for age. Pain: Pain at worst was 10 out of 10 on a pain scale. Pain began 1 month ago Also complains of nausea, photophobia. Neuro: No deficits noted. Historical: - Allergies: 11:50 No Known Allergies; iw - Home Meds: 11:50 sumatriptan succinate 50 mg oral tab 1 tab [Active]; topiramate 25 mg oral CSpX 1 cap iw once daily [Active]; ondansetron HCl 4 mg Oral tab [Active]; - PMHx: 11:50 Colitis; iw - Immunization history:: Adult Immunizations unknown. - Social history:: Smoking status: Patient denies any tobacco usage or history of. Screenin:34 Abuse screen: Denies threats or abuse. Denies injuries from another. Nutritional ko1 screening: No deficits noted. Tuberculosis screening: No symptoms or risk factors identified. Fall Risk None identified. Assessment: 14:34 Pain: Complains of pain in top of head and forehead. 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 as 11:49 Triage completed. iw 11:51 Arm band placed on. iw 11:53 Reva Mercado, RN is Primary Nurse. ld1 11:56 Stepan Arteaga MD is Attending Physician. kdr 11:59 Nona Sofia, FRANCOIS is Primary Nurse. ko1 13:50 Inserted saline lock: 20 gauge in right antecubital area, using aseptic technique. eh3 14:04 CT Head Brain wo Cont In Process Unspecified. EDMS 14:34 Patient has correct armband on for positive identification. Bed in low position. Call ko1 light in reach. Side rails up X 1. Pulse ox on. NIBP on. Door closed. Noise minimized. Lights dimmed. Warm blanket given. 16:35 No provider procedures requiring assistance completed. IV discontinued, intact, ko1 bleeding controlled, No redness/swelling at site. Pressure dressing applied. Administered Medications: 13:51 Drug: Benadryl (diphenhydrAMINE) 25 mg Route: IVP; Site: right antecubital; 3 14:46 Follow up: Response: No adverse reaction; Pain is decreased ko1 13:51 Drug: Ketorolac 15 mg Route: IVP; Site: right antecubital; eh3 14:46 Follow up: Response: No adverse reaction; Pain is decreased ko1 13:51 Drug: NS 0.9% 1000 ml Route: IV; Rate: 1 bolus; Site: right antecubital; eh3 14:46 Follow up: IV Status: Completed infusion; IV converted to saline lock; IV Intake: [id number] 13:52 Drug: Reglan (metoCLOPramide) 20 mg Route: IVP; Site: right antecubital; 3 14:47 Follow up: Response: No adverse reaction ko1 Medication: 15:45 VIS not applicable for this client. ko1 Intake: 14:46 IV: 1000ml; Total: 1000ml. ko1 Outcome: 16:17 Discharge ordered by . kdr 16:35 Discharged to home ambulatory. ko1 16:35 Condition: improved 16:35 Discharge instructions given to patient, Instructed on discharge instructions, follow up and referral plans. Demonstrated understanding of instructions, follow-up care. 16:36 Patient left the ED. ko1 Signatures: Dispatcher [employer] EDMS Stepan Arteaga MD MD kdr Martinez, Amelia as Williams, Irene RN FRANCOIS Reva Mercado RN RN ld1 Maddie Mendoza RN RN 3 Nona Sofia RN RN ko1
--- NOTE | 2022-01-29 16:17 | EDPHYS ---
Physician Documentation [facility] Name: Cm Garduno Age: 41 yrs Sex: Male : 1980 Arrival Date: 01/29/2022 Time: 11:28 Bed 13 Private MD: ED Physician Stepan Arteaga HPI: 01/29 13:32 This 41 yrs old Black Male presents to ER via Ambulatory with complaints of Headache. kdr 13:32 Patient has had headache for about a month. He seen several doctors during that period kdr of time. He states that the headache waxes and wanes but generally is persistent. He feels it has been getting worse. He is concerned about a possible intracranial bleed. He must wear sunglasses due to his photosensitivity. He denies any other associated symptoms including nausea or vomiting. He has not had a headache like this previously until this month. Onset: The symptoms/episode began/occurred gradually, 1 month(s) ago. Severity of symptoms: At their worst the symptoms were mild in the emergency department the symptoms are unchanged. The patient has not experienced similar symptoms in the past. The patient has not recently seen a physician. Historical: - Allergies: 11:50 No Known Allergies; iw - Home Meds: 11:50 sumatriptan succinate 50 mg oral tab 1 tab [Active]; topiramate 25 mg oral CSpX 1 cap iw once daily [Active]; ondansetron HCl 4 mg Oral tab [Active]; - PMHx: 11:50 Colitis; iw - Immunization history:: Adult Immunizations unknown. - Social history:: Smoking status: Patient denies any tobacco usage or history of. ROS: 13:32 Constitutional: Negative for fever, chills, and weight loss, Eyes: Negative for injury, kdr pain, redness, and discharge, ENT: Negative for injury, pain, and discharge, Neck: Negative for injury, pain, and swelling, Cardiovascular: Negative for chest pain, palpitations, and edema, Respiratory: Negative for shortness of breath, cough, wheezing, and pleuritic chest pain, Abdomen/GI: Negative for abdominal pain, nausea, vomiting, diarrhea, and constipation, Back: Negative for injury and pain, : Negative for injury, bleeding, discharge, and swelling, MS/Extremity: Negative for injury and deformity, Skin: Negative for injury, rash, and discoloration, Psych: Negative for depression, anxiety, suicide ideation, homicidal ideation, and hallucinations, Allergy/Immunology: Negative for hives, rash, and allergies, Endocrine: Negative for neck swelling, polydipsia, polyuria, polyphagia, and marked weight changes, Hematologic/Lymphatic: Negative for swollen nodes, abnormal bleeding, and unusual bruising. 13:32 Neuro: Positive for headache, Negative for altered mental status, dizziness, gait disturbance, hearing loss, loss of consciousness, numbness, seizure activity, speech changes, syncope, near syncope, tinnitus, tremor, visual changes, weakness, acute changes. Exam: 13:32 Constitutional: This is a well developed, well nourished patient who is awake, alert, kdr and in no acute distress. Head/Face: Normocephalic, atraumatic. Eyes: Pupils equal round and reactive to light, extra-ocular motions intact. Lids and lashes normal. Conjunctiva and sclera are non-icteric and not injected. Cornea within normal limits. Periorbital areas with no swelling, redness, or edema. Neck: Trachea midline, no thyromegaly or masses palpated, and no cervical lymphadenopathy. Supple, full range of motion without nuchal rigidity, or vertebral point tenderness. No Meningismus. Chest/axilla: Normal chest wall appearance and motion. Nontender with no deformity. No lesions are appreciated. Cardiovascular: Regular rate and rhythm with a normal S1 and S2. No gallops, murmurs, or rubs. Normal PMI, no JVD. No pulse deficits. Respiratory: Lungs have equal breath sounds bilaterally, clear to auscultation and percussion. No rales, rhonchi or wheezes noted. No increased work of breathing, no retractions or nasal flaring. Abdomen/GI: Soft, non-tender, with normal bowel sounds. No distension or tympany. No guarding or rebound. No evidence of tenderness throughout. Back: No spinal tenderness. No costovertebral tenderness. Full range of motion. Skin: Warm, dry with normal turgor. Normal color with no rashes, no lesions, and no evidence of cellulitis. MS/ Extremity: Pulses equal, no cyanosis. Neurovascular intact. Full, normal range of motion. Neuro: Awake and alert, GCS 15, oriented to person, place, time, and situation. Cranial nerves II-XII grossly intact. Motor strength 5/5 in all extremities. Sensory grossly intact. Cerebellar exam normal. Normal gait. Psych: Awake, alert, with orientation to person, place and time. Behavior, mood, and affect are within normal limits. 13:32 Eyes: Periorbital structures: Pupils: Extraocular movements: Patient denies eye injury kdr or blurry vision on the right side. He is mildly photophobic in the right eye. There is no consensual pain in the right eye with light to the left eye. 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 kdr 16:12 ED course: Intraocular pressure was 15. ED course: At the time of discharge the patient kdr had 0 pain. He stated his headache is totally resolved.. 16:17 Patient medically screened. kdr 01/29 14:47 Order name: Urine Dipstick-Ancillary; Complete Time: 15:31 EDMS 01/29 13:20 Order name: CT Head Brain wo Cont; Complete Time: 15:31 kdr 01/29 15:36 Order name: Visual Acuity: Document in chart; Complete Time: 15:44 kdr Administered Medications: 13:51 Drug: Benadryl (diphenhydrAMINE) 25 mg Route: IVP; Site: right antecubital; 3 14:46 Follow up: Response: No adverse reaction; Pain is decreased ko1 13:51 Drug: Ketorolac 15 mg Route: IVP; Site: right antecubital; eh3 14:46 Follow up: Response: No adverse reaction; Pain is decreased ko1 13:51 Drug: NS 0.9% 1000 ml Route: IV; Rate: 1 bolus; Site: right antecubital; 3 14:46 Follow up: IV Status: Completed infusion; IV converted to saline lock; IV Intake: [id number] 13:52 Drug: Reglan (metoCLOPramide) 20 mg Route: IVP; Site: right antecubital; eh3 14:47 Follow up: Response: No adverse reaction ko1 Disposition Summary: 01/29/22 16:17 Discharge Ordered Location: Home kdr Problem: an ongoing problem kdr Symptoms: have improved kdr Condition: Stable kdr Diagnosis - Headache kdr Followup: kdr - With: Private Physician - When: 2 - 3 days - Reason: If symptoms return, Further diagnostic work-up, Recheck today's complaints, Continuance of care, Re-evaluation by your physician Discharge Instructions: - Discharge Summary Sheet kdr - General Headache Without Cause kdr Forms: - Medication Reconciliation Form kdr - Thank You Letter kdr Signatures: Dispatcher [employer] Stepan Flowers MD MD kdr Jo Sung RN RN Maddie Mendoza RN RN eh3 Nona Sofia RN RN ko1
[2022-01-29 17:05] VITALS: TEMP 98.4
[2022-01-29 17:06] VITALS: BP 158/99; O2SAT 99
== END 2022-01-29 16:36 | disposition home or self-care (01) ==
LOC: ER 11:24
DX: R51.9 Headache, unspecified (principal)
CPT/HCPCS: 96361; 81003; 70450; 96375; 96374; 99284; J2765; J1200; J7030

== ENCOUNTER 2022-02-01 16:45 | Emergency (ER) | payer OTHER ==
--- OUTSIDE RECORDS SUMMARY | 2022-02-01 16:50 | XMS REPORT | Continuity of Care Document ---
:1980 Author Organization [facility] t Address [address] [place] [address] Care Team Providers Name Role Phone PANCHO MEIER Primary Care Physician Unavailable RADIOLOGY Attending Clinician Unavailable Doctor Unassigned, [place] Attending Clinician Unavailable BRITTNEE ARIZA Attending Clinician [...] left 3-11 ity of shoulder shoulder 00:00: Medical Branch Muscle Muscle Disease Active Univers [...] anxiety 3-04 ity of disorder disorder 00:00: Medical Branch Depression Depression Disease Active U nivers , major, , major, 3-04 ity of recurrent, [place], [place] mild mild 00 Medical Branch Primary Primary Disease Active Univers insomnia insomnia 3-04 ity of 00:00: Medical Branch Migraine Migraine Disease Active Unive rs equivalent equivalent 3-04 it y of syndrome syndrome 00:00: [place] [facility] Cigarette Cigarette Disease Active Uni vers nicotine nicotine 3-04 ity of dependence dependence [place] , , 00 Medical uncomplica uncomplica Br anch elijah elijah Hand Hand Disease Active Univers injury, injury, 1-20 ity of right, right, 00:00: [place] initial initial 00 Medical encounter encounter Bran ch Allergies, Adverse Reactions, Alerts Allergy Allergy Status Severity Reaction(s) Onset Inactive Treating Comm ents Source Name Type Date Date Clinician NO KNOWN Drug Active Univers ALLERGIE Class ity of S [facility] [place] Social History Social Habit Start Date Stop Date Quantity Comments Source Exposure to 2022-01-18 2022-01-28 Not sure [facility] SARS-CoV-2 (event) 00:00:00 10:49:00 Medica l Branch Alcohol intake 2022-01-04 2022-01-04 0 /d [facility] 00:00:00 00:00:00 Medical Branch Tobacco use and 2020-08-28 2020-08-28 Never used [facility] exposure 00:00:00 00:00:00 Medical Branch Sex [birth year] [facility] 00:00:00 00:00:00 Medical Branch Smoking Status Start Date Stop Date Source Never smoked tobacco [facility] Medications Ordered Filled Start Stop Current Ordering Indication Dosage Frequency Signature Comments Components Source Medication Medication Date Date Medication? Clinician (SIG) Name Name fluticasone 2021-03 Yes [id number] 2{spray Use 2 Univers propionate 0-15 } Sprays in ity of 50 00:00: each [place] mcg/actuati 00 nostril in Me dical on nasal the Branch spray morning. cetirizine 2021-03 Yes [id number] 10mg Take 1 U nivers (ZYRTEC) 10 0-15 tablet by ity of mg tablet 00:00: mouth [place] the Medical morning. Branch fluticasone 2021-03 Yes [id number] 2{spray Use 2 Univers propionate 0-15 } Sprays in ity of 50 00:00: each [place] mcg/actuati 00 nostril in Me dical on nasal the Branch spray morning. cetirizine 2021-03 Yes [id number] 10mg Take 1 U nivers (ZYRTEC) 10 0-15 tablet by ity of mg tablet 00:00: [place] the Medical morning. Branch amLODIPine 2021-03 Yes 10mg Take 10 mg U nivers 10 mg 0-07 by mouth ity of tablet 00:00: in the morning. Medical Branch orphenadrin 2021-03 Yes TAKE 1 Univ ers e 100 mg SR 0-07 TABLET BY ity of tablet 00:00: MOUTH 00 TWICE Medical DAILY Branch NEEDED amLODIPine 2022-1 Yes 10mg Take 10 mg U nivers 10 mg 0-07 by mouth ity of tablet 00:00: in the [place] 00 morning. Medical Branch orphenadrin 2021-03 Yes TAKE 1 Univ ers e 100 mg SR 0-07 TABLET BY ity of tablet 00:00: MOUTH [place] 00 TWICE Medical DAILY Branch NEEDED lisinopriL- Yes [id number] .5{tbl} Take 0.5 Univers hydrochloro 6-08 tablets by it y of thiazide 00:00: mouth [place] 10-12.5 mg 00 daily. Medical per tablet Branch esomeprazol Yes [id number] 20mg Take 20 mg Univers e 20 mg 6-08 by mouth ity of capsule 00:00: daily [place] 00 before a Medical meal. Branch nicotine 14 Yes [id number] 1{patch Apply 1 [facility] mg/24 hr 6-08 } Patch to ity of patch 00:00: area(s) [place] 00 every 24 Medical (twenty-fo Branch ur) hours. Apply 21mg patch daily x 6 weeks; then apply 14mf patch daily x 2 weeks; then apply 7mg patch daily x 2 weeks. Stop smoking on initiation of therapy nicotine Yes [id number] 1{patch Apply 1 [facility] mg/24 hr 6-08 } Patch to ity of patch 00:00: area(s) [place] 00 daily. Medical Apply 21mg Branch patch daily x 6 weeks; then apply 14mg patch daily x 2 weeks; then apply 7mg patch daily x 2 weeks. Stop smoking on initiation of therapy nicotine 7 Yes [id number] 1{patch Apply 1 Univers mg/24 hr 6-08 } Patch to ity of patch 00:00: area(s) [place] 00 every 24 Medical (twenty-fo Branch ur) hours. Apply 21mg patch daily x 6 weeks; then apply 14mf patch daily x 2 weeks; then apply 7mg patch daily x 2 weeks. Stop smoking on initiation of therapy lisinopriL- Yes [id number] .5{tbl} Take 0.5 Univers hydrochloro 6-08 tablets by it y of thiazide 00:00: mouth [place] 10-12.5 mg 00 daily. Medical per tablet Branch esomeprazol Yes [id number] 20mg Take 20 mg Univers e 20 mg 6-08 by mouth ity of capsule 00:00: daily [place] 00 before a Medical meal. Branch nicotine 14 Yes [id number] 1{patch Apply 1 [facility] mg/24 hr 6-08 } Patch to ity of patch 00:00: area(s) [place] 00 every 24 Medical (twenty- Branch ur) hours. Apply 21mg patch daily x 6 weeks; then apply 14mf patch daily x 2 weeks; then apply 7mg patch daily x 2 weeks. Stop smoking on initiation of therapy nicotine Yes [id number] 1{patch Apply 1 Univers mg/24 hr 6-08 } Patch to ity of patch 00:00: area(s) [place] 00 daily. Medical Apply 21mg Branch patch daily x 6 weeks; then apply 14mg patch daily x 2 weeks; then apply 7mg patch daily x 2 weeks. Stop smoking on initiation of therapy nicotine Yes [id number] 1{patch Apply 1 Univers mg/24 hr 6-08 } Patch to ity of patch 00:00: area(s) [place] 00 every 24 Medical (twenty- Branch ur) hours. Apply 21mg patch daily x 6 weeks; then apply 14mf patch daily x 2 weeks; then apply 7mg patch daily x 2 weeks. Stop smoking on initiation of therapy lisinopriL- Yes [id number] .5{tbl} Take 0.5 Univers hydrochloro 6-08 tablets by it y of thiazide 00:00: mouth [place] 10-12.5 mg 00 daily. Medical per tablet Branch esomeprazol Yes [id number] 20mg Take 20 mg Univers e 20 mg 6-08 by mouth ity of capsule 00:00: daily [place] 00 before a Medical meal. Branch nicotine Yes [id number] 1{patch Apply 1 Univers mg/24 hr 6-08 } Patch to ity of patch 00:00: area(s) [place] 00 every 24 Medical (twenty- Branch ur) hours. Apply 21mg patch daily x 6 weeks; then apply 14mf patch daily x 2 weeks; then apply 7mg patch daily x 2 weeks. Stop smoking on initiation of therapy nicotine Yes [id number] 1{patch Apply 1 Univers mg/24 hr 6-08 } Patch to ity of patch 00:00: area(s) [place] 00 daily. Medical Apply 21mg Branch patch daily x 6 weeks; then apply 14mg patch daily x 2 weeks; then apply 7mg patch daily x 2 weeks. Stop smoking on initiation of therapy nicotine 7 Yes [id number] 1{patch Apply 1 Univers mg/24 hr 6-08 } Patch to ity of patch 00:00: area(s) [place] 00 every 24 Medical (twenty-fo Branch ur) hours. Apply 21mg patch daily x 6 weeks; then apply 14mf patch daily x 2 weeks; then apply 7mg patch daily x 2 weeks. Stop smoking on initiation of therapy lisinopriL- Yes [id number] .5{tbl} Take 0.5 Univers hydrochloro 6-08 tablets by it y of thiazide 00:00: mouth [place] 10-12.5 mg 00 daily. Medical per tablet Branch esomeprazol Yes [id number] 20mg Take 20 mg Univers e 20 mg 6-08 by mouth ity of capsule 00:00: daily [place] 00 before a Medical meal. Branch nicotine Yes [id number] 1{patch Apply 1 Univers mg/24 hr 6-08 } Patch to ity of patch 00:00: area(s) [place] 00 every 24 Medical (twenty- Branch ur) hours. Apply 21mg patch daily x 6 weeks; then apply 14mf patch daily x 2 weeks; then apply 7mg patch daily x 2 weeks. Stop smoking on initiation of therapy nicotine Yes [id number] 1{patch Apply 1 Univers mg/24 hr 6-08 } Patch to ity of patch 00:00: area(s) [place] 00 daily. Medical Apply 21mg Branch patch daily x 6 weeks; then apply 14mg patch daily x 2 weeks; then apply 7mg patch daily x 2 weeks. Stop smoking on initiation of therapy nicotine 7 Yes [id number] 1{patch Apply 1 Univers mg/24 hr 6-08 } Patch to ity of patch 00:00: area(s) [place] 00 every 24 Medical (twenty-fo Branch ur) hours. Apply 21mg patch daily x 6 weeks; then apply 14mf patch daily x 2 weeks; then apply 7mg patch daily x 2 weeks. Stop smoking on initiation of therapy lisinopriL- Yes [id number] .5{tbl} Take 0.5 Univers hydrochloro 6-08 tablets by it y of thiazide 00:00: mouth [place] 10-12.5 mg 00 daily. Medical per tablet Branch esomeprazol Yes [id number] 20mg Take 20 mg Univers e 20 mg 6-08 by mouth ity of capsule 00:00: daily [place] 00 before a Medical meal. Branch nicotine Yes [id number] 1{patch Apply 1 Univers mg/24 hr 6-08 } Patch to ity of patch 00:00: area(s) [place] 00 every 24 Medical (twenty- Branch ur) hours. Apply 21mg patch daily x 6 weeks; then apply 14mf patch daily x 2 weeks; then apply 7mg patch daily x 2 weeks. Stop smoking on initiation of therapy nicotine Yes [id number] 1{patch Apply 1 Univers mg/24 hr 6-08 } Patch to ity of patch 00:00: area(s) [place] 00 daily. Medical Apply 21mg Branch patch daily x 6 weeks; then apply 14mg patch daily x 2 weeks; then apply 7mg patch daily x 2 weeks. Stop smoking on initiation of therapy nicotine 7 Yes [id number] 1{patch Apply 1 Univers mg/24 hr 6-08 } Patch to ity of patch 00:00: area(s) [place] 00 every 24 Medical (twenty- Branch ur) hours. Apply 21mg patch daily x 6 weeks; then apply 14mf patch daily x 2 weeks; then apply 7mg patch daily x 2 weeks. Stop smoking on initiation of therapy lisinopriL- Yes [id number] .5{tbl} Take 0.5 Univers hydrochloro 6-08 tablets by it y of thiazide 00:00: mouth [place] 10-12.5 mg 00 daily. Medical per tablet Branch esomeprazol Yes [id number] 20mg Take 20 mg Univers e 20 mg 6-08 by mouth ity of capsule 00:00: daily [place] 00 before a Medical meal. Branch nicotine 14 Yes [id number] 1{patch Apply 1 Univers mg/24 hr 6-08 } Patch to ity of patch 00:00: area(s) [place] 00 every 24 [facility] hours. Apply 21mg patch daily x 6 weeks; then apply 14mf patch daily x 2 weeks; then apply 7mg patch daily x 2 weeks. Stop smoking on initiation of therapy nicotine Yes [id number] 1{patch Apply 1 Univers mg/24 hr 6-08 } Patch to ity of patch 00:00: area() [place] 00 daily. Medical Apply 21mg Branch patch daily x 6 weeks; then apply 14mg patch daily x 2 weeks; then apply 7mg patch daily x 2 weeks. Stop smoking on initiation of therapy nicotine Yes [id number] 1{patch Apply 1 Univers mg/24 hr 6-08 } Patch to ity of patch 00:00: [facility]() [place] 00 every 24 Medical ([facility] Branch ur) hours. Apply 21mg patch daily x 6 weeks; then apply 14mf patch daily x 2 weeks; then apply 7mg patch daily x 2 weeks. Stop smoking on initiation of therapy lisinopriL- Yes [id number] .5{tbl} Take 0.5 Univers hydrochloro 6-08 tablets by it y of thiazide 00:00: mouth [place] 10-12.5 mg 00 daily. Medical per tablet Branch esomeprazol Yes [id number] 20mg Take 20 mg Univers e 20 mg 6-08 by mouth ity of capsule 00:00: daily [place] 00 before a Medical meal. Branch nicotine Yes [id number] 1{patch Apply 1 Univers mg/24 hr 6-08 } Patch to ity of patch 00:00: area() [place] 00 every 24 Medical ([facility] ur) hours. Apply 21mg patch daily x 6 weeks; then apply 14mf patch daily x 2 weeks; then apply 7mg patch daily x 2 weeks. Stop smoking on initiation of therapy nicotine Yes [id number] 1{patch Apply 1 Univers mg/24 hr 6-08 } Patch to ity of patch 00:00: area() [place] 00 daily. Medical Apply 21mg Branch patch daily x 6 weeks; then apply 14mg patch daily x 2 weeks; then apply 7mg patch daily x 2 weeks. Stop smoking on initiation of therapy nicotine 7 Yes [id number] 1{patch Apply 1 Univers mg/24 hr 6-08 } Patch to ity of patch 00:00: area(s) [place] 00 every 24 Medical (twenty- Branch ur) hours. Apply 21mg patch daily x 6 weeks; then apply 14mf patch daily x 2 weeks; then apply 7mg patch daily x 2 weeks. Stop smoking on initiation of therapy lisinopriL- Yes [id number] .5{tbl} Take 0.5 Univers hydrochloro 6-08 tablets by it y of thiazide 00:00: mouth [place] 10-12.5 mg 00 daily. Medical per tablet Branch esomeprazol Yes [id number] 20mg Take 20 mg Univers e 20 mg 6-08 by mouth ity of capsule 00:00: daily [place] 00 before a Medical meal. Branch nicotine 14 Yes [id number] 1{patch Apply 1 Univers mg/24 hr 6-08 } Patch to ity of patch 00:00: area(s) [place] 00 every 24 Medical ([facility] Branch ur) hours. Apply 21mg patch daily x 6 weeks; then apply 14mf patch daily x 2 weeks; then apply 7mg patch daily x 2 weeks. Stop smoking on initiation of therapy nicotine Yes [id number] 1{patch Apply 1 Univers mg/24 hr 6-08 } Patch to ity of patch 00:00: area(s) [place] 00 daily. Medical Apply 21mg Branch patch daily x 6 weeks; then apply 14mg patch daily x 2 weeks; then apply 7mg patch daily x 2 weeks. Stop smoking on initiation of therapy nicotine Yes [id number] 1{patch Apply 1 Univers mg/24 hr 6-08 } Patch to ity of patch 00:00: area(s) [place] 00 every 24 Medical (twenty- Branch ur) hours. Apply 21mg patch daily x 6 weeks; then apply 14mf patch daily x 2 weeks; then apply 7mg patch daily x 2 weeks. Stop smoking on initiation of therapy lisinopriL- Yes [id number] .5{tbl} Take 0.5 Univers hydrochloro 6-08 tablets by it y of thiazide 00:00: mouth [place] 10-12.5 mg 00 daily. Medical per tablet Branch esomeprazol Yes [id number] 20mg Take 20 mg Univers e 20 mg 6-08 by mouth ity of capsule 00:00: daily [place] 00 before a Medical meal. Branch nicotine Yes [id number] 1{patch Apply 1 Univers mg/24 hr 6-08 } Patch to ity of patch 00:00: area(s) [place] 00 every 24 Medical (twenty- Branch ur) hours. Apply 21mg patch daily x 6 weeks; then apply 14mf patch daily x 2 weeks; then apply 7mg patch daily x 2 weeks. Stop smoking on initiation of therapy nicotine Yes [id number] 1{patch Apply 1 Univers mg/24 hr 6-08 } Patch to ity of patch 00:00: area(s) [place] 00 daily. Medical Apply 21mg Branch patch daily x 6 weeks; then apply 14mg patch daily x 2 weeks; then apply 7mg patch daily x 2 weeks. Stop smoking on initiation of therapy nicotine Yes [id number] 1{patch Apply 1 Univers mg/24 hr 6-08 } Patch to ity of patch 00:00: area(s) [place] 00 every 24 Medical ([facility] Branch ur) hours. Apply 21mg patch daily x 6 weeks; then apply 14mf patch daily x 2 weeks; then apply 7mg patch daily x 2 weeks. Stop smoking on initiation of therapy nicotine 2020- No [id number] 1{patch Apply 1 Univers mg/24 hr 6-08 06-08 } Patch to ity of patch 00:00: 00:00 [facility](s) [place] 00 :00 every 24 Medical ([facility] ur) hours. Apply 21mg patch daily x 6 weeks; then apply 14mf patch daily x 2 weeks; then apply 7mg patch daily x 2 weeks. Stop smoking on initiation of therapy nicotine 2020- No [id number] 1{patch Apply 1 Univers mg/24 hr 6-08 06-08 } Patch to ity of patch 00:00: 00:00 [facility](s) [place] 00 :00 daily. Medical Apply 21mg Branch patch daily x 6 weeks; then apply 14mg patch daily x 2 weeks; then apply 7mg patch daily x 2 weeks. Stop smoking on initiation of therapy nicotine 2020- No [id number] 1{patch Apply 1 Univers mg/24 hr 6 06-08 } Patch to ity of patch 00:00: 00:00 area(s) [place] 00 :00 every 24 Medical (twenty- Branch ur) hours. Apply 21mg patch daily x 6 weeks; then apply 14mf patch daily x 2 weeks; then apply 7mg patch daily x 2 weeks. Stop smoking on initiation of therapy nicotine 14 2020- No [id number] 1{patch Apply 1 Univers mg/24 hr 6 06-08 } Patch to ity of patch 00:00: 00:00 area(s) [place] 00 :00 every 24 Medical (twenty- Branch ur) hours. Apply 21mg patch daily x 6 weeks; then apply 14mf patch daily x 2 weeks; then apply 7mg patch daily x 2 weeks. Stop smoking on initiation of therapy nicotine 21 2020- No [id number] 1{patch Apply 1 Univers mg/24 hr 6 06-08 } Patch to ity of patch 00:00: 00:00 [facility](s) [place] 00 :00 daily. Medical Apply 21mg Branch patch daily x 6 weeks; then apply 14mg patch daily x 2 weeks; then apply 7mg patch daily x 2 weeks. Stop smoking on initiation of therapy nicotine 7 2020- No [id number] 1{patch Apply 1 Univers mg/24 hr 08-28-08 } Patch to ity of patch 00:00: 00:00 area(s) [place] 00 :00 every 24 [facility] hours. Apply 21mg patch daily x 6 weeks; then apply 14mf patch daily x 2 weeks; then apply 7mg patch daily x 2 weeks. Stop smoking on initiation of therapy tiZANidine Yes [id number] 2mg Take 1 Univers 2 mg tablet 3-11 [id number] tablet by i ty of 00:00: mouth [place] 00 every 8 Medical (eight) Branch hours as needed (muscle spasms). DULoxetine Yes [id number] 20mg Take 20 mg Univers 20 mg CDRS 3-11 by mouth 2 ity of 00:00: (two) [place] 00 times Medical daily. Branch Diclofenac Yes [id number] Apply to Univers Sodium 3-11 area(s) 4 ity of (VOLTAREN) 00:00: (four) [place] 1 % gel 00 times Medical daily. Branch Apply 4 g qid ibuprofen 0 Yes [id number] 600mg Take 1 Univers 600 mg 3-11 tablet by ity of tablet 00:00: mouth [place] 00 every 8 Medical (eight) Branch hours as needed for Pain (scale 4-6). Back Brace 0 Yes [id number] Use as Univers Misc 3-11 directed ity of 00:00: [place] 00 Medical Branch lidocaine 2020-0 Yes [id number] 1{patch Apply 1 Univers 3.5 % PtMd 3-11 } Patch to ity o f 00:00: area(s) [place] 00 daily. Medical Branch tiZANidine Yes [id number] 2mg Take 1 Univers 2 mg tablet 3-11 [id number] tablet by i ty of 00:00: mouth [place] 00 every 8 Medical (eight) Branch hours as needed (muscle spasms). DULoxetine Yes [id number] 20mg Take 20 mg Univers 20 mg CDRS 3-11 by mouth 2 ity of 00:00: (two) [place] 00 times Medical daily. Branch Diclofenac Yes [id number] Apply to Univers Sodium 3-11 area(s) 4 ity of (VOLTAREN) 00:00: (four) [place] 1 % gel 00 times Medical daily. Branch Apply 4 g qid ibuprofen 0 Yes [id number] 600mg Take 1 Univers 600 mg 3-11 tablet by ity of tablet 00:00: mouth [place] 00 every 8 Medical (eight) Branch hours as needed for Pain (scale 4-6). Back Brace Yes [id number] Use as Univers Misc 3-11 directed ity of 00:00: [place] 00 Medical Branch lidocaine 2020-0 Yes [id number] 1{patch Apply 1 Univers 3.5 % PtMd 3-11 } Patch to ity o f 00:00: area(s) [place] 00 daily. Medical Branch tiZANidine 0 Yes [id number] 2mg Take 1 Univers 2 mg tablet 3-11 [id number] tablet by i ty of 00:00: mouth [place] 00 every 8 Medical (eight) Branch hours as needed (muscle spasms). DULoxetine 0 Yes [id number] 20mg Take 20 mg Univers 20 mg CDRS 3-11 by mouth 2 ity of 00:00: (two) [place] 00 times Medical daily. Branch Diclofenac 0 Yes [id number] Apply to Univers Sodium 3-11 area(s) 4 ity of (VOLTAREN) 00:00: (four) [place] 1 % gel 00 times Medical daily. Branch Apply 4 g qid ibuprofen 0 Yes [id number] 600mg Take 1 Univers 600 mg 3-11 tablet by ity of tablet 00:00: mouth [place] 00 every 8 Medical (eight) Branch hours as needed for Pain (scale 4-6). Back Brace 0 Yes [id number] Use as Univers Misc 3-11 directed ity of 00:00: [place] 00 Medical Branch lidocaine 2020-0 Yes [id number] 1{patch Apply 1 Univers 3.5 % PtMd 3-11 } Patch to ity o f 00:00: area(s) [place] 00 daily. Medical Branch tiZANidine 0 Yes [id number] 2mg Take 1 Univers 2 mg tablet 3-11 [id number] tablet by i ty of 00:00: mouth [place] 00 every 8 Medical (eight) Branch hours as needed (muscle spasms). DULoxetine Yes [id number] 20mg Take 20 mg Univers 20 mg CDRS 3-11 by mouth 2 ity of 00:00: (two) [place] 00 times Medical daily. Branch Diclofenac Yes [id number] Apply to Univers Sodium 3-11 area(s) 4 ity of (VOLTAREN) 00:00: (four) [place] 1 % gel 00 times Medical daily. Branch Apply 4 g qid ibuprofen 0 Yes [id number] 600mg Take 1 Univers 600 mg 3-11 tablet by ity of tablet 00:00: mouth [place] 00 every 8 Medical (eight) Branch hours as needed for Pain (scale 4-6). Back Brace 0 Yes [id number] Use as Univers Misc 3-11 directed ity of 00:00: [place] 00 Medical Branch lidocaine 2020-0 Yes [id number] 1{patch Apply 1 Univers 3.5 % PtMd 3-11 } Patch to ity o f 00:00: area(s) [place] 00 daily. Medical Branch tiZANidine 2021-0 Yes [id number] 2mg Take 1 Univers 2 mg tablet 3-11 [id number] tablet by i ty of 00:00: mouth [place] 00 every 8 Medical (eight) Branch hours as needed (muscle spasms). DULoxetine 0 Yes [id number] 20mg Take 20 mg Univers 20 mg CDRS 3-11 by mouth 2 ity of 00:00: (two) [place] 00 times Medical daily. Branch Diclofenac 0 Yes [id number] Apply to Univers Sodium 3-11 area(s) 4 ity of (VOLTAREN) 00:00: (four) [place] 1 % gel 00 times Medical daily. Branch Apply 4 g qid ibuprofen 0 Yes [id number] 600mg Take 1 Univers 600 mg 3-11 tablet by ity of tablet 00:00: mouth [place] 00 every 8 Medical (eight) Branch hours as needed for Pain (scale 4-6). Back Brace 0 Yes [id number] Use as Univers Misc 3-11 directed ity of 00:00: [place] 00 Medical Branch lidocaine 2020-0 Yes [id number] 1{patch Apply 1 Univers 3.5 % PtMd 3-11 } Patch to ity o f 00:00: area(s) [place] 00 daily. Medical Branch tiZANidine 0 Yes [id number] 2mg Take 1 Univers 2 mg tablet 3-11 [id number] tablet by i ty of 00:00: mouth [place] 00 every 8 Medical (eight) Branch hours as needed (muscle spasms). DULoxetine 0 Yes [id number] 20mg Take 20 mg Univers 20 mg CDRS 3-11 by mouth 2 ity of 00:00: (two) [place] 00 times Medical daily. Branch Diclofenac 0 Yes [id number] Apply to Univers Sodium 3-11 area(s) 4 ity of (VOLTAREN) 00:00: (four) [place] 1 % gel 00 times Medical daily. Branch Apply 4 g qid ibuprofen 0 Yes [id number] 600mg Take 1 Univers 600 mg 3-11 tablet by ity of tablet 00:00: mouth [place] 00 every 8 Medical (eight) Branch hours as needed for Pain (scale 4-6). Back Brace 0 Yes [id number] Use as Univers Misc 3-11 directed ity of 00:00: [place] 00 Medical Branch lidocaine 2020-0 Yes [id number] 1{patch Apply 1 Univers 3.5 % PtMd 3-11 } Patch to ity o f 00:00: area(s) [place] 00 daily. Medical Branch tiZANidine 0 Yes [id number] 2mg Take 1 Univers 2 mg tablet 3-11 [id number] tablet by i ty of 00:00: mouth [place] 00 every 8 Medical (eight) Branch hours as needed (muscle spasms). DULoxetine 0 Yes [id number] 20mg Take 20 mg Univers 20 mg CDRS 3-11 by mouth 2 ity of 00:00: (two) [place] 00 times Medical daily. Branch Diclofenac 0 Yes [id number] Apply to Univers Sodium 3-11 area(s) 4 ity of (VOLTAREN) 00:00: (four) [place] 1 % gel 00 times Medical daily. Branch Apply 4 g qid ibuprofen 0 Yes [id number] 600mg Take 1 Univers 600 mg 3-11 tablet by ity of tablet 00:00: mouth [place] 00 every 8 Medical (eight) Branch hours as needed for Pain (scale 4-6). Back Brace 0 Yes [id number] Use as Univers Misc 3-11 directed ity of 00:00: [place] 00 Medical Branch lidocaine 2020-0 Yes [id number] 1{patch Apply 1 Univers 3.5 % PtMd 3-11 } Patch to ity o f 00:00: area(s) [place] 00 daily. Medical Branch tiZANidine 0 Yes [id number] 2mg Take 1 Univers 2 mg tablet 3-11 [id number] tablet by i ty of 00:00: mouth [place] 00 every 8 Medical (eight) Branch hours as needed (muscle spasms). DULoxetine 2020-0 Yes [id number] 20mg Take 20 mg Univers 20 mg CDRS 3-11 by mouth 2 ity of 00:00: (two) [place] 00 times Medical daily. Branch Diclofenac 2020-0 Yes [id number] Apply to Univers Sodium 3-11 area(s) 4 ity of (VOLTAREN) 00:00: (four) [place] 1 % gel 00 times Medical daily. Branch Apply 4 g qid ibuprofen 2020-0 Yes [id number] 600mg Take 1 Univers 600 mg 3-11 tablet by ity of tablet 00:00: mouth [place] 00 every 8 Medical (eight) Branch hours as needed for Pain (scale 4-6). Back Brace Yes [id number] Use as Univers Misc 3-11 directed ity of 00:00: [place] 00 Medical Branch lidocaine 2020-0 Yes [id number] 1{patch Apply 1 Univers 3.5 % PtMd 3-11 } Patch to ity o f 00:00: area(s) [place] 00 daily. Medical Branch tiZANidine Yes [id number] 2mg Take 1 Univers 2 mg tablet 3-11 [id number] tablet by i ty of 00:00: mouth [place] 00 every 8 Medical (eight) Branch hours as needed (muscle spasms). DULoxetine 0 Yes [id number] 20mg Take 20 mg Univers 20 mg CDRS 3-11 by mouth 2 ity of 00:00: (two) [place] 00 times Medical daily. Branch Diclofenac Yes [id number] Apply to Univers Sodium 3-11 area(s) 4 ity of (VOLTAREN) 00:00: (four) [place] 1 % gel 00 times Medical daily. Branch Apply 4 g qid Back Brace Yes [id number] Use as Univers Misc 3-11 directed ity of 00:00: [place] 00 Medical Branch lidocaine 2020-0 Yes [id number] 1{patch Apply 1 Univers 3.5 % PtMd 3-11 } Patch to ity o f 00:00: area(s) [place] 00 daily. Medical Branch tiZANidine 0 Yes [id number] 2mg Take 1 [facility] 2 mg tablet 3-11 [id number] tablet by i ty of 00:00: mouth [place] 00 every 8 Medical (eight) Branch hours as needed (muscle spasms). DULoxetine 0 Yes [id number] 20mg Take 20 mg [facility] 20 mg CDRS 3-11 by mouth 2 ity of 00:00: (two) [place] 00 times Medical daily. Branch Diclofenac 0 Yes [id number] Apply to [facility] Sodium 3-11 area(s) 4 ity of (VOLTAREN) 00:00: (four) [place] 1 % gel 00 times Medical daily. Branch Apply 4 g qid Back Brace Yes [id number] Use as [facility] Misc 3-11 directed ity of 00:00: [place] 00 Medical Branch lidocaine 2020-0 Yes [id number] 1{patch Apply 1 [facility] 3.5 % PtMd 3-11 } Patch to ity o f 00:00: area(s) [place] 00 daily. Medical Branch tiZANidine 0 Yes [id number] 2mg Take 1 [facility] 2 mg tablet 3-11 [id number] tablet by i ty of 00:00: mouth [place] 00 every 8 Medical (eight) Branch hours as needed (muscle spasms). DULoxetine Yes [id number] 20mg Take 20 mg [facility] 20 mg CDRS 3-11 by mouth 2 ity of 00:00: (two) [place] 00 times Medical daily. Branch Diclofenac Yes [id number] Apply to [facility] Sodium 3-11 area(s) 4 ity of (VOLTAREN) 00:00: (four) [place] 1 % gel 00 times Medical daily. Branch Apply 4 g qid Back Brace Yes [id number] Use as [facility] Misc 3-11 directed ity of 00:00: [place] 00 Medical Branch lidocaine 0 Yes [id number] 1{patch Apply 1 [facility] 3.5 % PtMd 3-11 } Patch to ity o f 00:00: area(s) [place] 00 daily. Medical Branch tiZANidine Yes [id number] 2mg Take 1 [facility] 2 mg tablet 3-11 [id number] tablet by i ty of 00:00: mouth [place] 00 every 8 Medical (eight) Branch hours as needed (muscle spasms). DULoxetine 0 Yes [id number] 20mg Take 20 mg [facility] 20 mg CDRS 3-11 by mouth 2 ity of 00:00: (two) [place] 00 times Medical daily. Branch Diclofenac 0 Yes [id number] Apply to [facility] Sodium 3-11 area(s) 4 ity of (VOLTAREN) 00:00: (four) [place] 1 % gel 00 times Medical daily. Branch Apply 4 g qid Back Brace 0 Yes [id number] Use as [facility] Misc 3-11 directed ity of 00:00: [place] 00 Medical Branch lidocaine 2020-0 Yes [id number] 1{patch Apply 1 [facility] 3.5 % PtMd 3-11 } Patch to ity o f 00:00: area(s) [place] 00 daily. Medical Branch tiZANidine Yes [id number] 2mg Take 1 [facility] 2 mg tablet 3-11 [id number] tablet by i ty of 00:00: mouth [place] 00 every 8 Medical (eight) Branch hours as needed (muscle spasms). DULoxetine 0 Yes [id number] 20mg Take 20 mg [facility] 20 mg CDRS 3-11 by mouth 2 ity of 00:00: (two) [place] 00 times Medical daily. Branch Diclofenac Yes [id number] Apply to [facility] Sodium 3-11 area(s) 4 ity of (VOLTAREN) 00:00: (four) [place] 1 % gel 00 times Medical daily. Branch Apply 4 g qid Back Brace Yes [id number] Use as [facility] Misc 3-11 directed ity of 00:00: [place] 00 Medical Branch lidocaine 2020-0 Yes [id number] 1{patch Apply 1 [facility] 3.5 % PtMd 3-11 } Patch to ity o f 00:00: area(s) [place] 00 daily. Medical Branch tiZANidine Yes [id number] 2mg Take 1 [facility] 2 mg tablet 3-11 [id number] tablet by i ty of 00:00: mouth [place] 00 every 8 Medical (eight) Branch hours as needed (muscle spasms). DULoxetine Yes [id number] 20mg Take 20 mg [facility] 20 mg CDRS 3-11 by mouth 2 ity of 00:00: (two) [place] 00 times Medical daily. Branch Diclofenac Yes [id number] Apply to [facility] Sodium 3-11 area(s) 4 ity of (VOLTAREN) 00:00: (four) [place] 1 % gel 00 times Medical daily. Branch Apply 4 g qid Back Brace 0 Yes [id number] Use as [facility] Misc 3-11 directed ity of 00:00: [place] 00 Medical Branch lidocaine 2020-0 Yes [id number] 1{patch Apply 1 [facility] 3.5 % PtMd 3-11 } Patch to ity o f 00:00: area(s) [place] 00 daily. Medical Branch tiZANidine Yes [id number] 2mg Take 1 [facility] 2 mg tablet 3-11 [id number] tablet by i ty of 00:00: mouth [place] 00 every 8 Medical (eight) Branch hours as needed (muscle spasms). DULoxetine 0 Yes [id number] 20mg Take 20 mg [facility] 20 mg CDRS 3-11 by mouth 2 ity of 00:00: (two) [place] 00 times Medical daily. Branch Diclofenac 0 Yes [id number] Apply to [facility] Sodium 3-11 area(s) 4 ity of (VOLTAREN) 00:00: (four) [place] 1 % gel 00 times Medical daily. Branch Apply 4 g qid Back Brace Yes [id number] Use as [facility] Misc 3-11 directed ity of 00:00: [place] 00 Medical Branch lidocaine 0 Yes [id number] 1{patch Apply 1 [facility] 3.5 % PtMd 3-11 } Patch to ity o f 00:00: area(s) [place] 00 daily. Medical Branch tiZANidine Yes [id number] 2mg Take 1 [facility] 2 mg tablet 3-11 [id number] tablet by i ty of 00:00: mouth [place] 00 every 8 Medical (eight) Branch hours as needed (muscle spasms). DULoxetine Yes [id number] 20mg Take 20 mg [facility] 20 mg CDRS 3-11 by mouth 2 ity of 00:00: (two) [place] 00 times Medical daily. Branch Diclofenac 0 Yes [id number] Apply to [facility] Sodium 3-11 area(s) 4 ity of (VOLTAREN) 00:00: (four) [place] 1 % gel 00 times Medical daily. Branch Apply 4 g qid Back Brace 0 Yes [id number] Use as [facility] Misc 3-11 directed ity of 00:00: [place] 00 Medical Branch lidocaine 2020-0 Yes [id number] 1{patch Apply 1 [facility] 3.5 % PtMd 3-11 } Patch to ity o f 00:00: area(s) [place] 00 daily. Medical Branch tiZANidine 0 Yes [id number] 2mg Take 1 [facility] 2 mg tablet 3-11 [id number] tablet by i ty of 00:00: mouth [place] 00 every 8 Medical (eight) Branch hours as needed (muscle spasms). DULoxetine 0 Yes [id number] 20mg Take 20 mg [facility] 20 mg CDRS 3-11 by mouth 2 ity of 00:00: (two) [place] 00 times Medical daily. Branch Diclofenac Yes [id number] Apply to [facility] Sodium 3-11 area(s) 4 ity of (VOLTAREN) 00:00: (four) [place] 1 % gel 00 times Medical daily. Branch Apply 4 g qid Back Brace Yes [id number] Use as [facility] Misc 3-11 directed ity of 00:00: [place] 00 Medical Branch lidocaine Yes [id number] 1{patch Apply 1 [facility] 3.5 % PtMd 3-11 } Patch to ity o f 00:00: area(s) [place] 00 daily. Medical Branch ibuprofen 2020- No [id number] 600mg Take 1 [facility] 600 mg 3-11 06-08 tablet by ity of tablet 00:00: 00:00 mouth [place] 00 :00 every 8 Medical (eight) Branch hours as needed for Pain (scale 4-6). ibuprofen 2020- No [id number] 600mg Take 1 [facility] 600 mg 3-11 06-08 tablet by ity of tablet 00:00: 00:00 mouth [place] 00 :00 every 8 Medical (eight) Branch hours as needed for Pain (scale 4-6). lisinopriL- Yes [id number] 1{tbl} Take 1 [facility] hydrochloro 3-04 tablet by ity of thiazide 00:00: mouth [place] 10-12.5 mg 00 daily. Medical per tablet Branch nicotine 14 Yes [id number] 1{patch Apply 1 [facility] mg/24 hr 3-04 } Patch to ity of patch 00:00: area(s) [place] 00 every 24 Medical (twenty-fo Branch ur) hours. Apply 21mg patch daily x 6 weeks; then apply 14mf patch daily x 2 weeks; then apply 7mg patch daily x 2 weeks. Stop smoking on initiation of therapy nicotine 21 Yes [id number] 1{patch Apply 1 [facility] mg/24 hr 3-04 } Patch to ity of patch 00:00: area(s) [place] 00 daily. Medical Apply 21mg Branch patch daily x 6 weeks; then apply 14mg patch daily x 2 weeks; then apply 7mg patch daily x 2 weeks. Stop smoking on initiation of therapy nicotine 7 Yes [id number] 1{patch Apply 1 [facility] mg/24 hr 3-04 } Patch to ity of patch 00:00: area(s) [place] 00 every 24 Medical (twenty-fo Branch ur) hours. Apply 21mg patch daily x 6 weeks; then apply 14mf patch daily x 2 weeks; then apply 7mg patch daily x 2 weeks. Stop smoking on initiation of therapy FLUoxetine Yes [id number] 10mg Take 1 [facility] 10 mg 3-04 tablet by ity of tablet 00:00: mouth [place] 00 daily. Medical Branch hydrOXYzine Yes [id number] 50mg Take 1 [facility] n[facility] 50 mg 3-04 tablet by ity of tablet 00:00: mouth 3 [place] 00 (three) Medical times Branch daily as needed for Anxiety. acetaminoph Yes [id number] 650mg Take 1 [facility] en 650 mg 3-04 tablet by ity o f CR tablet 00:00: mouth [place] 00 every 8 Medical (eight) Branch hours as needed for Pain or Fever. lisinopriL- Yes [id number] 1{tbl} Take 1 [facility] hydrochloro 3-04 tablet by ity of thiazide 00:00: mouth [place] 10-12.5 mg 00 daily. Medical per tablet Branch nicotine Yes [id number] 1{patch Apply 1 [facility] mg/24 hr 3-04 } Patch to ity of patch 00:00: area(s) [place] 00 every 24 Medical (twenty-fo Branch ur) hours. Apply 21mg patch daily x 6 weeks; then apply 14mf patch daily x 2 weeks; then apply 7mg patch daily x 2 weeks. Stop smoking on initiation of therapy nicotine 21 Yes [id number] 1{patch Apply 1 [facility] mg/24 hr 3-04 } Patch to ity of patch 00:00: area(s) [place] 00 daily. Medical Apply 21mg Branch patch daily x 6 weeks; then apply 14mg patch daily x 2 weeks; then apply 7mg patch daily x 2 weeks. Stop smoking on initiation of therapy nicotine 7 Yes [id number] 1{patch Apply 1 [facility] mg/24 hr 3-04 } Patch to ity of patch 00:00: area(s) [place] 00 every 24 Medical (twenty-fo Branch ur) hours. Apply 21mg patch daily x 6 weeks; then apply 14mf patch daily x 2 weeks; then apply 7mg patch daily x 2 weeks. Stop smoking on initiation of therapy FLUoxetine Yes [id number] 10mg Take 1 [facility] 10 mg 3-04 tablet by ity of tablet 00:00: mouth [place] 00 daily. Medical Branch hydrOXYzine Yes [id number] 50mg Take 1 [facility] nivers 50 mg 3-04 tablet by ity of tablet 00:00: mouth 3 [place] 00 (three) Medical times Branch daily as needed for Anxiety. acetaminoph Yes [id number] 650mg Take 1 [facility] en 650 mg 3-04 tablet by ity o f CR tablet 00:00: mouth [place] 00 every 8 Medical (eight) Branch hours as needed for Pain or Fever. lisinopriL- Yes [id number] 1{tbl} Take 1 [facility] hydrochloro 3-04 tablet by ity of thiazide 00:00: mouth [place] 10-12.5 mg 00 daily. Medical per tablet Branch nicotine Yes [id number] 1{patch Apply 1 [facility] mg/24 hr 3-04 } Patch to ity of patch 00:00: area(s) [place] 00 every 24 Medical (twenty-fo Branch ur) hours. Apply 21mg patch daily x 6 weeks; then apply 14mf patch daily x 2 weeks; then apply 7mg patch daily x 2 weeks. Stop smoking on initiation of therapy nicotine 21 Yes [id number] 1{patch Apply 1 [facility] mg/24 hr 3-04 } Patch to ity of patch 00:00: area(s) [place] 00 daily. Medical Apply 21mg Branch patch daily x 6 weeks; then apply 14mg patch daily x 2 weeks; then apply 7mg patch daily x 2 weeks. Stop smoking on initiation of therapy nicotine 7 Yes [id number] 1{patch Apply 1 [facility] mg/24 hr 3-04 } Patch to ity of patch 00:00: area(s) [place] 00 every 24 Medical (twenty-fo Branch ur) hours. Apply 21mg patch daily x 6 weeks; then apply 14mf patch daily x 2 weeks; then apply 7mg patch daily x 2 weeks. Stop smoking on initiation of therapy hydrOXYzine Yes [id number] 50mg Take 1 [facility] nivers 50 mg 3-04 tablet by ity of tablet 00:00: mouth 3 [place] 00 (three) Medical times Branch daily as needed for Anxiety. acetaminoph Yes [id number] 650mg Take 1 [facility] en 650 mg 3-04 tablet by ity o f CR tablet 00:00: mouth [place] 00 every 8 Medical (eight) Branch hours as needed for Pain or Fever. lisinopriL- Yes [id number] 1{tbl} Take 1 [facility] hydrochloro 3-04 tablet by ity of thiazide 00:00: mouth [place] 10-12.5 mg 00 daily. Medical per tablet Branch nicotine Yes [id number] 1{patch Apply 1 [facility] mg/24 hr 3-04 } Patch to ity of patch 00:00: area(s) [place] 00 every 24 Medical (twenty-fo Branch ur) hours. Apply 21mg patch daily x 6 weeks; then apply 14mf patch daily x 2 weeks; then apply 7mg patch daily x 2 weeks. Stop smoking on initiation of therapy nicotine Yes [id number] 1{patch Apply 1 [facility] mg/24 hr 3-04 } Patch to ity of patch 00:00: area(s) [place] 00 daily. Medical Apply 21mg Branch patch daily x 6 weeks; then apply 14mg patch daily x 2 weeks; then apply 7mg patch daily x 2 weeks. Stop smoking on initiation of therapy nicotine 7 Yes [id number] 1{patch Apply 1 [facility] mg/24 hr 3-04 } Patch to ity of patch 00:00: area(s) [place] 00 every 24 Medical (twenty-fo Branch ur) hours. Apply 21mg patch daily x 6 weeks; then apply 14mf patch daily x 2 weeks; then apply 7mg patch daily x 2 weeks. Stop smoking on initiation of therapy hydrOXYzine Yes [id number] 50mg Take 1 [facility] nivers 50 mg 3-04 tablet by ity of tablet 00:00: mouth 3 [place] 00 (three) Medical times Branch daily as needed for Anxiety. acetaminoph Yes [id number] 650mg Take 1 [facility] en 650 mg 3-04 tablet by ity o f CR tablet 00:00: mouth [place] 00 every 8 Medical (eight) Branch hours as needed for Pain or Fever. lisinopriL- Yes [id number] 1{tbl} Take 1 [facility] hydrochloro 3-04 tablet by ity of thiazide 00:00: mouth [place] 10-12.5 mg 00 daily. Medical per tablet Branch nicotine Yes [id number] 1{patch Apply 1 [facility] mg/24 hr 3-04 } Patch to ity of patch 00:00: area(s) [place] 00 every 24 Medical (twenty-fo Branch ur) hours. Apply 21mg patch daily x 6 weeks; then apply 14mf patch daily x 2 weeks; then apply 7mg patch daily x 2 weeks. Stop smoking on initiation of therapy nicotine Yes [id number] 1{patch Apply 1 [facility] mg/24 hr 3-04 } Patch to ity of patch 00:00: area(s) [place] 00 daily. Medical Apply 21mg Branch patch daily x 6 weeks; then apply 14mg patch daily x 2 weeks; then apply 7mg patch daily x 2 weeks. Stop smoking on initiation of therapy nicotine Yes [id number] 1{patch Apply 1 [facility] mg/24 hr 3-04 } Patch to ity of patch 00:00: area(s) [place] 00 every 24 Medical (twenty-fo Branch ur) hours. Apply 21mg patch daily x 6 weeks; then apply 14mf patch daily x 2 weeks; then apply 7mg patch daily x 2 weeks. Stop smoking on initiation of therapy hydrOXYzine Yes [id number] 50mg Take 1 [facility] nivers 50 mg 3-04 tablet by ity of tablet 00:00: mouth 3 [place] 00 (three) Medical times Branch daily as needed for Anxiety. acetaminoph Yes [id number] 650mg Take 1 [facility] en 650 mg 3-04 tablet by ity o f CR tablet 00:00: mouth [place] 00 every 8 Medical (eight) Branch hours as needed for Pain or Fever. lisinopriL- Yes [id number] 1{tbl} Take 1 [facility] hydrochloro 3-04 tablet by ity of thiazide 00:00: mouth [place] 10-12.5 mg 00 daily. Medical per tablet Branch nicotine Yes [id number] 1{patch Apply 1 [facility] mg/24 hr 3-04 } Patch to ity of patch 00:00: area(s) [place] 00 every 24 Medical (twenty-fo Branch ur) hours. Apply 21mg patch daily x 6 weeks; then apply 14mf patch daily x 2 weeks; then apply 7mg patch daily x 2 weeks. Stop smoking on initiation of therapy nicotine Yes [id number] 1{patch Apply 1 [facility] mg/24 hr 3-04 } Patch to ity of patch 00:00: area(s) [place] 00 daily. Medical Apply 21mg Branch patch daily x 6 weeks; then apply 14mg patch daily x 2 weeks; then apply 7mg patch daily x 2 weeks. Stop smoking on initiation of therapy nicotine Yes [id number] 1{patch Apply 1 [facility] mg/24 hr 3-04 } Patch to ity of patch 00:00: area(s) [place] 00 every 24 Medical (twenty-fo Branch ur) hours. Apply 21mg patch daily x 6 weeks; then apply 14mf patch daily x 2 weeks; then apply 7mg patch daily x 2 weeks. Stop smoking on initiation of therapy hydrOXYzine Yes [id number] 50mg Take 1 [facility] nivers 50 mg 3-04 tablet by ity of tablet 00:00: mouth 3 [place] 00 (three) Medical times Branch daily as needed for Anxiety. acetaminoph Yes [id number] 650mg Take 1 [facility] en 650 mg 3-04 tablet by ity o f CR tablet 00:00: mouth [place] 00 every 8 Medical (eight) Branch hours as needed for Pain or Fever. lisinopriL- Yes [id number] 1{tbl} Take 1 [facility] hydrochloro 3-04 tablet by ity of thiazide 00:00: mouth [place] 10-12.5 mg 00 daily. Medical per tablet Branch nicotine Yes [id number] 1{patch Apply 1 [facility] mg/24 hr 3-04 } Patch to ity of patch 00:00: area(s) [place] 00 every 24 Medical (twenty-fo Branch ur) hours. Apply 21mg patch daily x 6 weeks; then apply 14mf patch daily x 2 weeks; then apply 7mg patch daily x 2 weeks. Stop smoking on initiation of therapy nicotine Yes [id number] 1{patch Apply 1 [facility] mg/24 hr 3-04 } Patch to ity of patch 00:00: area(s) [place] 00 daily. Medical Apply 21mg Branch patch daily x 6 weeks; then apply 14mg patch daily x 2 weeks; then apply 7mg patch daily x 2 weeks. Stop smoking on initiation of therapy nicotine 7 Yes [id number] 1{patch Apply 1 [facility] mg/24 hr 3-04 } Patch to ity of patch 00:00: area(s) [place] 00 every 24 Medical (twenty-fo Branch ur) hours. Apply 21mg patch daily x 6 weeks; then apply 14mf patch daily x 2 weeks; then apply 7mg patch daily x 2 weeks. Stop smoking on initiation of therapy hydrOXYzine Yes [id number] 50mg Take 1 [facility] nivers 50 mg 3-04 tablet by ity of tablet 00:00: mouth 3 [place] 00 (three) Medical times Branch daily as needed for Anxiety. acetaminoph Yes [id number] 650mg Take 1 [facility] en 650 mg 3-04 tablet by ity o f CR tablet 00:00: mouth [place] 00 every 8 Medical (eight) Branch hours as needed for Pain or Fever. lisinopriL- Yes [id number] 1{tbl} Take 1 [facility] hydrochloro 3-04 tablet by ity of thiazide 00:00: mouth [place] 10-12.5 mg 00 daily. Medical per tablet Branch nicotine Yes [id number] 1{patch Apply 1 [facility] mg/24 hr 3-04 } Patch to ity of patch 00:00: area(s) [place] 00 every 24 Medical (twenty-fo Branch ur) hours. Apply 21mg patch daily x 6 weeks; then apply 14mf patch daily x 2 weeks; then apply 7mg patch daily x 2 weeks. Stop smoking on initiation of therapy nicotine Yes [id number] 1{patch Apply 1 [facility] mg/24 hr 3-04 } Patch to ity of patch 00:00: area(s) [place] 00 daily. Medical Apply 21mg Branch patch daily x 6 weeks; then apply 14mg patch daily x 2 weeks; then apply 7mg patch daily x 2 weeks. Stop smoking on initiation of therapy nicotine 7 Yes [id number] 1{patch Apply 1 [facility] mg/24 hr 3-04 } Patch to ity of patch 00:00: area(s) [place] 00 every 24 Medical (twenty-fo Branch ur) hours. Apply 21mg patch daily x 6 weeks; then apply 14mf patch daily x 2 weeks; then apply 7mg patch daily x 2 weeks. Stop smoking on initiation of therapy hydrOXYzine Yes [id number] 50mg Take 1 [facility] nivers 50 mg 3-04 tablet by ity of tablet 00:00: mouth 3 [place] 00 (three) Medical times Branch daily as needed for Anxiety. acetaminoph Yes [id number] 650mg Take 1 [facility] en 650 mg 3-04 tablet by ity o f CR tablet 00:00: mouth [place] 00 every 8 Medical (eight) Branch hours as needed for Pain or Fever. lisinopriL- Yes [id number] 1{tbl} Take 1 [facility] hydrochloro 3-04 tablet by ity of thiazide 00:00: mouth [place] 10-12.5 mg 00 daily. Medical per tablet Branch nicotine Yes [id number] 1{patch Apply 1 [facility] mg/24 hr 3-04 } Patch to ity of patch 00:00: area(s) [place] 00 every 24 Medical (twenty-fo Branch ur) hours. Apply 21mg patch daily x 6 weeks; then apply 14mf patch daily x 2 weeks; then apply 7mg patch daily x 2 weeks. Stop smoking on initiation of therapy nicotine Yes [id number] 1{patch Apply 1 [facility] mg/24 hr 3-04 } Patch to ity of patch 00:00: area(s) [place] 00 daily. Medical Apply 21mg Branch patch daily x 6 weeks; then apply 14mg patch daily x 2 weeks; then apply 7mg patch daily x 2 weeks. Stop smoking on initiation of therapy nicotine Yes [id number] 1{patch Apply 1 [facility] mg/24 hr 3-04 } Patch to ity of patch 00:00: area(s) [place] 00 every 24 Medical (twenty-fo Branch ur) hours. Apply 21mg patch daily x 6 weeks; then apply 14mf patch daily x 2 weeks; then apply 7mg patch daily x 2 weeks. Stop smoking on initiation of therapy hydrOXYzine Yes [id number] 50mg Take 1 [facility] nivers 50 mg 3-04 tablet by ity of tablet 00:00: mouth 3 [place] 00 (three) Medical times Branch daily as needed for Anxiety. acetaminoph Yes [id number] 650mg Take 1 [facility] en 650 mg 3-04 tablet by ity o f CR tablet 00:00: mouth [place] 00 every 8 Medical (eight) Branch hours as needed for Pain or Fever. lisinopriL- Yes [id number] 1{tbl} Take 1 [facility] hydrochloro 3-04 tablet by ity of thiazide 00:00: mouth [place] 10-12.5 mg 00 daily. Medical per tablet Branch nicotine 14 Yes [id number] 1{patch Apply 1 [facility] mg/24 hr 3-04 } Patch to ity of patch 00:00: area(s) [place] 00 every 24 Medical (twenty-fo Branch ur) hours. Apply 21mg patch daily x 6 weeks; then apply 14mf patch daily x 2 weeks; then apply 7mg patch daily x 2 weeks. Stop smoking on initiation of therapy nicotine 21 Yes [id number] 1{patch Apply 1 [facility] mg/24 hr 3-04 } Patch to ity of patch 00:00: area(s) [place] 00 daily. Medical Apply 21mg Branch patch daily x 6 weeks; then apply 14mg patch daily x 2 weeks; then apply 7mg patch daily x 2 weeks. Stop smoking on initiation of therapy nicotine 7 Yes [id number] 1{patch Apply 1 [facility] mg/24 hr 3-04 } Patch to ity of patch 00:00: area(s) [place] 00 every 24 Medical (twenty-fo Branch ur) hours. Apply 21mg patch daily x 6 weeks; then apply 14mf patch daily x 2 weeks; then apply 7mg patch daily x 2 weeks. Stop smoking on initiation of therapy hydrOXYzine 2020- Yes [id number] 50mg Take 1 [facility] nivers 50 mg 3-04 tablet by ity of tablet 00:00: mouth 3 [place] 00 (three) Medical times Branch daily as needed for Anxiety. acetaminoph Yes [id number] 650mg Take 1 [facility] en 650 mg 3-04 tablet by ity o f CR tablet 00:00: mouth [place] 00 every 8 Medical (eight) Branch hours as needed for Pain or Fever. hydrOXYzine 2020- Yes [id number] 50mg Take 1 [facility] nivers 50 mg 3-04 tablet by ity of tablet 00:00: mouth 3 [place] 00 (three) Medical times Branch daily as needed for Anxiety. acetaminoph 2020-0 Yes [id number] 650mg Take 1 [facility] en 650 mg 3-04 tablet by ity o f CR tablet 00:00: mouth [place] 00 every 8 Medical (eight) Branch hours as needed for Pain or Fever. hydrOXYzine 2020-0 Yes [id number] 50mg Take 1 [facility] nivers 50 mg 3-04 tablet by ity of tablet 00:00: mouth 3 [place] 00 (three) Medical times Branch daily as needed for Anxiety. acetaminoph 2020-0 Yes [id number] 650mg Take 1 [facility] en 650 mg 3-04 tablet by ity o f CR tablet 00:00: mouth [place] 00 every 8 Medical (eight) Branch hours as needed for Pain or Fever. hydrOXYzine 2020-0 Yes [id number] 50mg Take 1 [facility] nivers 50 mg 3-04 tablet by ity of tablet 00:00: mouth 3 00 (three) Medical times Branch daily as needed for Anxiety. acetaminoph 2020-0 Yes [id number] 650mg Take 1 [facility] en 650 mg 3-04 tablet by ity o f CR tablet 00:00: mouth [place] 00 every 8 Medical (eight) Branch hours as needed for Pain or Fever. hydrOXYzine 2020-0 Yes [id number] 50mg Take 1 [facility] nivers 50 mg 3-04 tablet by ity of tablet 00:00: mouth 3 00 (three) Medical times Branch daily as needed for Anxiety. acetaminoph 2020-0 Yes [id number] 650mg Take 1 [facility] en 650 mg 3-04 tablet by ity o f CR tablet 00:00: mouth [place] 00 every 8 Medical (eight) Branch hours as needed for Pain or Fever. hydrOXYzine 2020-0 Yes [id number] 50mg Take 1 [facility] nivers 50 mg 3-04 tablet by ity of tablet 00:00: mouth 3 00 (three) Medical times Branch daily as needed for Anxiety. acetaminoph 2020-0 Yes [id number] 650mg Take 1 [facility] en 650 mg 3-04 tablet by ity o f CR tablet 00:00: mouth [place] 00 every 8 Medical (eight) Branch hours as needed for Pain or Fever. hydrOXYzine 2020-0 Yes [id number] 50mg Take 1 [facility] nivers 50 mg 3-04 tablet by ity of tablet 00:00: mouth 3 00 (three) Medical times Branch daily as needed for Anxiety. acetaminoph 0 Yes [id number] 650mg Take 1 [facility] en 650 mg 3-04 tablet by ity o f CR tablet 00:00: mouth [place] 00 every 8 Medical (eight) Branch hours as needed for Pain or Fever. hydrOXYzine 2020-0 Yes [id number] 50mg Take 1 [facility] nivers 50 mg 3-04 tablet by ity of tablet 00:00: mouth 3 00 (three) Medical times Branch daily as needed for Anxiety. acetaminoph Yes [id number] 650mg Take 1 [facility] en 650 mg 3-04 tablet by ity o f CR tablet 00:00: mouth [place] 00 every 8 Medical (eight) Branch hours as needed for Pain or Fever. hydrOXYzine Yes [id number] 50mg Take 1 [facility] nivers 50 mg 3-04 tablet by ity of tablet 00:00: mouth 3 00 (three) Medical times Branch daily as needed for Anxiety. acetaminoph Yes [id number] 650mg Take 1 [facility] en 650 mg 3-04 tablet by ity o f CR tablet 00:00: mouth [place] 00 every 8 Medical (eight) Branch hours as needed for Pain or Fever. hydrOXYzine 0 Yes [id number] 50mg Take 1 [facility] nivers 50 mg 3-04 tablet by ity of tablet 00:00: mouth 3 00 (three) Medical times Branch daily as needed for Anxiety. acetaminoph 0 Yes [id number] 650mg Take 1 [facility] en 650 mg 3-04 tablet by ity o f CR tablet 00:00: mouth [place] 00 every 8 Medical (eight) Branch hours as needed for Pain or Fever. lisinopriL- 2020-0 Yes [id number] 1{tbl} Take 1 [facility] hydrochloro 3-04 tablet by ity of thiazide 00:00: mouth [place] 10-12.5 mg 00 daily. Medical per tablet Branch nicotine 14 2020-0 Yes [id number] 1{patch Apply 1 [facility] mg/24 hr 3-04 } Patch to ity of patch 00:00: area(s) [place] 00 every 24 Medical (twenty-fo Branch ur) hours. Apply 21mg patch daily x 6 weeks; then apply 14mf patch daily x 2 weeks; then apply 7mg patch daily x 2 weeks. Stop smoking on initiation of therapy nicotine 21 Yes [id number] 1{patch Apply 1 [facility] mg/24 hr 3-04 } Patch to ity of patch 00:00: area(s) [place] 00 daily. Medical Apply 21mg Branch patch daily x 6 weeks; then apply 14mg patch daily x 2 weeks; then apply 7mg patch daily x 2 weeks. Stop smoking on initiation of therapy nicotine 7 Yes [id number] 1{patch Apply 1 Univers mg/24 hr 3-04 } Patch to ity of patch 00:00: area(s) [place] 00 every 24 Medical (twenty-fo Branch ur) hours. Apply 21mg patch daily x 6 weeks; then apply 14mf patch daily x 2 weeks; then apply 7mg patch daily x 2 weeks. Stop smoking on initiation of therapy FLUoxetine Yes [id number] 10mg Take 1 Univers 10 mg 3-04 tablet by ity of tablet 00:00: mouth [place] 00 daily. Medical Branch hydrOXYzine Yes [id number] 50mg Take 1 U nivers 50 mg 3-04 tablet by ity of tablet 00:00: mouth 3 [place] 00 (three) Medical times Branch daily as needed for Anxiety. acetaminoph Yes [id number] 650mg Take 1 Univers en 650 mg 3-04 tablet by ity o f CR tablet 00:00: mouth [place] 00 every 8 Medical (eight) Branch hours as needed for Pain or Fever. lisinopriL- 2020- No [id number] 1{tbl} Take 1 Univers hydrochloro 3-04 06-08 tablet by it y of thiazide 00:00: 00:00 mouth [place] 10-12.5 mg 00 :00 daily. Medical per tablet Branch nicotine 2020- No [id number] 1{patch Apply 1 Univers mg/24 hr 3-04 06-08 } Patch to ity of patch 00:00: 00:00 area(s) [place] 00 :00 every 24 Medical (twenty-fo Branch ur) hours. Apply 21mg patch daily x 6 weeks; then apply 14mf patch daily x 2 weeks; then apply 7mg patch daily x 2 weeks. Stop smoking on initiation of therapy nicotine 2020- No [id number] 1{patch Apply 1 Univers mg/24 hr 3-04 06-08 } Patch to ity of patch 00:00: 00:00 [facility](s) [place] 00 :00 daily. Medical Apply 21mg Branch patch daily x 6 weeks; then apply 14mg patch daily x 2 weeks; then apply 7mg patch daily x 2 weeks. Stop smoking on initiation of therapy nicotine 2020- No [id number] 1{patch Apply 1 Univers mg/24 hr 3-04 06-08 } Patch to ity of patch 00:00: 00:00 [facility](s) [place] 00 :00 every 24 Medical (twenty-fo Branch ur) hours. Apply 21mg patch daily x 6 weeks; then apply 14mf patch daily x 2 weeks; then apply 7mg patch daily x 2 weeks. Stop smoking on initiation of therapy lisinopriL- 2020- No [id number] 1{tbl} Take 1 Univers hydrochloro -06 26-08 tablet by it y of thiazide 00:00: 00:00 mouth [place] 10-12.5 mg 00 :00 daily. Medical per tablet Branch nicotine 2020- No [id number] 1{patch Apply 1 Univers mg/24 hr 3-04 06-08 } Patch to ity of patch 00:00: 00:00 [facility](s) [place] 00 :00 every 24 Medical (twenty-fo Branch ur) hours. Apply 21mg patch daily x 6 weeks; then apply 14mf patch daily x 2 weeks; then apply 7mg patch daily x 2 weeks. Stop smoking on initiation of therapy nicotine 2020- No [id number] 1{patch Apply 1 Univers mg/24 hr 3-04 06-08 } Patch to ity of patch 00:00: 00:00 [facility](s) [place] 00 :00 daily. Medical Apply 21mg Branch patch daily x 6 weeks; then apply 14mg patch daily x 2 weeks; then apply 7mg patch daily x 2 weeks. Stop smoking on initiation of therapy nicotine 2020- No [id number] 1{patch Apply 1 Univers mg/24 hr 3-04 06-08 } Patch to ity of patch 00:00: 00:00 [facility](s) [place] 00 :00 every 24 Medical (twenty-fo Branch ur) hours. Apply 21mg patch daily x 6 weeks; then apply 14mf patch daily x 2 weeks; then apply 7mg patch daily x 2 weeks. Stop smoking on initiation of therapy FLUoxetine 2020- No [id number] 10mg Take 1 Univers 10 mg 3-11 tablet by ity of tablet 00:00: 00:00 mouth [place] 00 :00 daily. Medical Branch FLUoxetine 2020- No [id number] 10mg Take 1 Univers 10 mg 3-06 23-11 tablet by ity of tablet 00:00: 00:00 mouth [place] 00 :00 daily. Medical Branch Vital Signs Vital Name Observation Time Observation Value Comments Source Systolic blood 2022-01-04 19:53:00 171 mm[Hg] Univer sity of [facility] Diastolic blood 2022-01-04 19:53:00 106 [facility]Hg[facility] 2022-01-04 19:53:00 82 /min [facility] Body temperature 2022-01-04 19:53:00 37 Nikki [facility] Respiratory rate 2022-01-04 19:53:00 16 /min [facility] Body height 2022-01-04 19:53:00 188 cm [facility] Body weight 2022-01-04 19:53:00 82.963 kg [facility] BMI 2022-01-04 19:53:00 23.48 kg/m2 [facility] Oxygen saturation in 2022-01-04 19:53:00 98 /min [facility] Arterial blood by [facility] Pulse oximetry Branch Body temperature 2021-12-26 19:46:00 37.22 Nikki [facility] 2021-12-26 19:44:00 169 mm[Hg] [facility] 2021-12-26 19:44:00 116 mm[Hg] [facility] 2021-12-26 19:44:00 84 /min [facility] Respiratory rate 2021-12-26 19:44:00 16 /min Univ ersity of [place] [facility] Oxygen saturation in 2021-12-26 19:44:00 99 /min University of Arterial blood by [place] [facility] Pulse oximetry Branch Systolic blood 2020-08-28 15:55:00 133 mm[Hg] Univer sity of pressure [place] [facility] Diastolic blood 2020-08-28 15:55:00 89 mm[Hg] Unive rsity of pressure [place] [facility] Heart rate 2020-08-28 15:55:00 71 /min [facility]i ty [facility] [place] [facility] Body height 2020-08-28 15:55:00 188 cm [facility]i [facility] [place] [facility] Body weight 2020-08-28 15:55:00 82.101 kg [facility] [place] [facility] BMI 2020-08-28 15:55:00 23.24 kg/m2 [facility] [place] [facility] Oxygen saturation in 2020-08-28 15:55:00 97 /min University of Arterial blood by [facility] Pulse oximetry Branch Systolic blood 2020-05-31 17:38:00 128 mm[Hg] Univer sity of pressure [place] [facility] Diastolic blood 2020-05-31 17:38:00 70 mm[Hg] Unive rsity of pressure [place] [facility] Heart rate 2020-05-31 17:38:00 79 /min [facility]i [facility] [place] [facility] Respiratory rate 2020-05-31 17:38:00 16 /min Univ ersity of [place] [facility] Body height 2020-05-31 17:38:00 188 cm [facility]i [facility] [place] [facility] Body weight 2020-05-31 17:38:00 84.414 kg [facility]i [facility] [place] [facility] BMI 2020-05-31 17:38:00 23.89 kg/m2 [facility] [place] [facility] Oxygen saturation in 2020-05-31 17:38:00 98 /min University of Arterial blood by [place] [facility] Pulse oximetry Branch Systolic blood 2020-05-24 15:57:00 166 mm[Hg] Univer sity of pressure [place] [facility] Diastolic blood 2020-05-24 15:57:00 98 mm[Hg] Unive rsity of pressure [place] [facility] Heart rate 2020-05-24 15:57:00 66 /min [facility] [place] [facility] Body temperature 2020-05-24 15:57:00 36.72 Nikki [facility] Respiratory rate 2020-05-24 15:57:00 18 /min [facility] Body height 2020-05-24 15:57:00 188 cm [facility] Body weight 2020-05-24 15:57:00 84.052 kg [facility] BMI 2020-05-24 15:57:00 23.79 kg/m2 [facility] Oxygen saturation in 2020-05-24 15:57:00 100 /min [facility] Arterial blood by [facility] Pulse oximetry Branch Procedures Procedure Date / Time Performing Clinician Source Performed REFERRAL- 2022-01-28 06:01:00 Doctor Unassigned, No [facility] REQUEST/RESPONSE Name [facility] CONSENT/REFUSAL FOR 2022-01-04 19:48:22 [facility] NOTICE OF PRIVACY 2021-12-26 19:41:55 Doctor Unassigned, No [facility] PRACTICES Name [facility] CONSENT/REFUSAL FOR 2021-12-26 19:41:40 Doctor Un[facility], [facility] XR SHOULDER 2+ VW LEFT 2020-05-31 19:28:19 Pancho Meier [facility] FREE T4 2020-05-24 17:47:00 Pancho Meier [facility] THYROID STIMULATING 2020-05-24 17:47:00 Pancho Meier [facility] HORMONE [facility] COMP. METABOLIC PANEL 2020-05-24 17:47:00 Pancho Meier [facility] ([id number]) [facility] LIPID PANEL 2020-05-24 17:47:00 Renea [facility] ([id number])(TOTAL [facility] CHOLESTEROL, TRIGLYCERIDES, HDL) CBC WITH DIFF 2020-05-24 17:47:00 Pancho Meier [facility] FREE T3 2020-05-24 17:47:00 Pancho Meier [facility] Encounters Start End Encounter Admission Attending Care Care Encounter Source Date/Time Date/Time Type Type Clinicians Facility Department ID 2022-02-06 2022-02-06 Outpatient R RADIOLOGY [facility] [id number] Univers 00:00:00 00:00:00 ity of [facility] 2022-01-28 2022-01-28 Orders Doctor CARROLL 1.2.840.114 [id number] Univers 00:00:00 00:00:00 Only Unassigned, RAMONA [id number] ity of [place] [facility] 4.2.7.2.686 Ravi as [phone] [address] 2022-01-04 2022-01-04 Outpatient R [facility] [id number] Univers 15:00:00 15:09:31 BRITTNEE mitchell o f [facility] 2022-01-04 2022-01-04 [facility] 1.2.840. 114 [id number] Univers 15:00:00 15:09:31 Care Unknown, Attending HEALTH [id number] ity of [place] 4.2.7.2.686 Ravi as VITALIY?BLEA [id number] [address] MEDICAL OFFICE BUILDING 2022-01-04 2022-01-04 Orders Doctor CARROLL 1.2.840.114 [id number] Univers 00:00:00 00:00:00 Only Unassigned, RAMONA [id number] ity of [place] [facility] 4.2.7.2.686 Ravi as [phone] [facility] [address] 2021-12-26 2021-12-26 Emergency X James BURTON [facility] ERT [id number] Univers 15:01:00 15:49:00 ity of [facility] 2021-12-26 2021-12-26 Emergency Trace Pinzon [facility] 1.2.840. 114 [id number] Univers 15:01:00 15:49:00 James Burton [id number] ity of [place] 4[place]2.7.2.686 [place] [facility] [phone] [facility] 084 Branch 2021-12-26 2021-12-26 Orders Doctor HODGES 1.2.840.114 [id number] Univers 00:00:00 00:00:00 Only Unassigned, RAMONA [id number] ity of [place] [facility] 4.2.7.2.686 Ravi as [phone] [address] 2021-04-01 2021-04-01 Laboratory Only, Ang Db Test [facility] 1.2.8 40.114 [id number] Univers 19:30:00 19:45:00 Only Brittnee Ariza [facility] 350.1.13.10 ity of [place] 4.2.7.2.686 Ravi as VITALIY?BLEA [id number] Fl dical [address] MEDICAL OFFICE BUILDING 2021-04-01 2021-04-01 Outpatient R TO [facility] [id number] Univers 19:30:00 19:41:28 BRITTNEE farzanatoya o f [facility] 2020-11-29 2020-11-29 [id number] Univers 15:40:00 15:40:00 PANCHO mitchell [facility] 2020-10-18 2020-10-18 [facility] [id number] Univers 14:30:00 14:30:00 LISSY [facility] 2020-09-27 2020-09-27 [facility] [id number] Univers 10:30:00 10:30:00 LISSY toya [facility] 2020-09-04 2020-09-04 Outpatient R [facility] [id number] Univers 09:30:00 09:30:00 ISSerenity ity [facility] 2020-08-29 2020-08-29 Outpatient R [facility] [id number] Univers 08:30:00 08:30:00 ISSerenity farzanay [facility] 2020-08-28 2020-08-28 [facility] 1.2.840.114 [id number] Univers 10:48:36 11:28:37 Visit Pancho Russell 350.1.13.10 i [place].2.[place] [phone] Fl dical nal 044 [facility] 2020-08-28 2020-08-28 [facility] [id number] Univers 10:40:00 11:28:37 PANCHO stephen [facility] 2020-08-28 2020-08-28 Telephone [facility] 1.2.840.114 [id number] Univers 00:00:00 00:00:00 Pancho Russell 350.1.13.10 i [place] [phone] Fl dical nal 044 [facility] 2020-06-28 2020-06-28 Outpatient R GRACE [facility] [id number] Univers 08:40:00 08:40:00 [facility] 2020-06-14 2020-06-14 Ancillary Sadie Salcedo [facility] 1.2.840. 114 [id number] Univers 09:20:28 10:11:26 Visit Valeria Edwards 350.1.13.10 ity [facility] 4[place]2.7.2.[place] [phone] Fl dical nal 179 [facility] 2020-06-14 2020-06-14 [facility] [id number] Univers 09:00:00 09:00:00 [facility] 2020-06-05 2020-06-05 Patient [facility] 1.2.840.114 [id number] Univers 00:00:00 00:00:00 Secure Msg Pancho [place] 350.1.13.10 ity [place].2.[place] [phone] Fl dical nal 044 [facility] 2020-05-31 2020-05-31 [facility] 1.2.840.114 [id number] Univers 13:17:29 23:59:00 Encounter Pancho Russell 350.1.13.10 [place]2.[place] [phone] [facility] [address] 2020-05-31 2020-05-31 [facility] 1.2.840.114 [id number] [facility] 13:04:50 13:06:57 Visit Pancho Russell 350.1.13.10 i ty [place] [phone] [facility] 044 [facility] 2020-05-31 2020-05-31 [facility] [id number] [facility] 11:20:00 11:20:00 PANCHO mitchell [facility] 2020-05-24 2020-05-24 [employer] 2, Adc Lab [facility] 1.2.840.114 [id number] Univers 11:44:17 11:59:17 Visit Pancho Meier 350.1.13.10 ity [place].2.[place] [phone] [facility] 353 [facility] 2020-05-24 2020-05-24 [facility] 1.2.840.114 [id number] [facility] 09:48:44 11:16:21 Visit Pancho Russell 350.1.13.10 i ty [place].2.[place] [phone] [facility] 044 [facility] 2020-05-24 2020-05-24 [facility] [id number] [facility] 10:00:00 10:00:00 PANCHO toya [facility] 2020-04-24 2020-04-24 Outpatient R [facility] [id number] Univers 18:20:00 18:20:00 [facility] Results Test Description Test Time Test Comments Results Result Sour e Comments XR SHOULDER 2+ 2020-05-21 HISTORY: ?Pain. Unive rsity of VW LEFT 1 FINDINGS: 2 frontal [facility] 19:41:10 projection views of [facility] h left shoulder obtained with arm ininternal and external rotation positions showed no acute fracture ordislocation. No significant changes of arthritis or aggressive bone lesionsseen. No calcifications seen in the rotator cuff tendons. CONCLUSIONS: No acute fracture or dislocation in left shoulder. [facility], Radiant Results Inft User - 05/31/2020 1:42 [...] Interpretation Comme nts TSH (test code = 1737130463) See_Comment [Automated message] The system which generated this result transmitted ref erence range: 0.45 - 4.70 mIU/L. T he reference range was not used to interpret this result as kristen l/abnormal. Lab Interpretation (test code = Normal 02831-2) [facility]. METABOLIC PANEL ([id number])2020-05-24 19:32:00 Test Item Value Reference Range Interpretation Comments NA (test code = 140 mmol/L 135-145 3037820519) K (test code = 4.0 mmol/L 3.5-5 6213960306) CL (test code = 103 mmol/L 98-108 2148746935) CO2 TOTAL (test code = 27 mmol/L 23-31 8191392683) AGAP (test code = 2-16 1790994376) BUN (test code = 10 mg/dL 7-23 3425819682) GLUCOSE (test code = 83 mg/dL 70-110 4731175759) CREATININE (test code = 0.71 mg/dL 0.6-1.25 9634463213) TOTAL BILI (test code = 1.2 mg/dL 0.1-1.1 H 3843361260) CALCIUM (test code = 9.3 mg/dL 8.6-10.6 9136679604) T PROTEIN (test code = 7.4 g/dL 6.3-8.2 3267730248) ALBUMIN (test code = 4.8 g/dL 3.5-5 8420350365) ALK PHOS (test code = 55 U/L 34-122 9888077002) ALTv (test code = 24 U/L 5-50 1742-6) AST(SGOT) (test code = 25 U/L 13-40 1024940111) eGFR Calculation mL/min/1.73m2 (Non-) (test code = 4004776795) eGFR Calculation mL/min/1.73m2 () (test code = 4396152241) JUDY (test code = JUDY) Association of [...] tests). Lab Interpretation Abnormal (test code = 05835-0) [facility] BranchLIPID PAN[facility] (55938)(TOTAL CHOLESTEROL, TRIGLYCERIDES, HDL)2020-05-24 19:32:00 Test Item Value Reference Range Interpretation Comments CHOL (test code = 151 mg/dL 120-200 7245006748) HDL (test code = 40 mg/dL >40 L 1232928040) HDLC RATIO (test code = See_Comment [Au tomated message] 2877951491) The system [employer] generated this result transmit elijah reference range : <=5.0. The refe rence range was not u sed to interpret th is result as normal/abnormal . TRIG (test code = 58 mg/dL 30-170 5272106434) LDL CHOL (test code = 99 mg/dL See_Comment [Auto mated message] 77721-2) The system [employer] generated this result transmit elijah reference range : <=160. The refe rence range was not u sed to interpret th is result as normal/abnormal . VLDL (test code = 12 mg/dL 5-60 7520379864) Lab Interpretation (test Abnormal code = 53375-2) [facility] [id number] 19:25:00 Test Item Value Reference Range Interpretation Comments FREE T3 (test code = 8401708843) 4.75 pg/mL 2.77-5.27 Lab Interpretation (test code = Normal 39818-9) [facility] [id number] 19:25:00 Test Item Value Reference Range Interpretation Comments FREE T4 (test code = See_Comment [Autom ated message] 1009631398) The system [employer] generated this result transmitted ref erence range: 0.78 - 2 .20 ng/dL:. The ref erence range was not u sed to interpret this result as normal/abnor mal. Lab Interpretation (test Normal code = 54663-8) [facility] WITH [id number] 19:08:00 Test Item Value Reference Range Interpretation Comments WBC (test code = See_Comment [Automated 3690-2) message] The sy stem which generated this result transmitted reference range : 4.20 - 10.70 10*3/?L. The reference range was not used to interpret this result as normal/abnormal . RBC (test code = See_Comment [Automated 049-8) message] The sy stem which generated this [...] RDW-SD (test code = 39.2 fL 38.5-51.6 85469-1) RDW-CV (test code = 10.8 % 12.1-15.4 L 788-0) PLT (test code = See_Comment L [Automated 777-3) message] The sy stem which generated this result transmitted reference range : 150 - 328 10*3/ ?L. The reference r treva was not used to interpret this result as normal/abnormal . MPV (test code = 12.6 fL 9.8-13 93572-2) IPF % (test code = 10.7 % 1.2-10.7 Platelet count 1192929804) measured by fluorescence method. NRBC/100 WBC (test See_Comment [Automat ed code = 4632845645) message] The system which generated this result transmitted reference range : 0.0 - 10.0 /100 WBCs. The refer ence range was not u sed to interpret th is result as normal/abnormal . NRBC x10^3 (test code <0.01 See_Comment [Auto mated = 5258234026) message] The s ystem which generated this result transmitted reference range : 10*3/?L. The reference range was not used to interpret this result as normal/abnormal . GRAN MAT (NEUT) % 41.6 % (test code = 770-8) IMM GRAN % (test code 0.40 % = 5726526265) LYMPH % (test code = 47.7 % 736-9) MONO % (test code = 7.4 % 5905-5) EOS % (test code = 2.5 % 713-8) BASO % (test code = 0.4 % 706-2) GRAN MAT x10^3(ANC) 2.13 10*3/uL 1.99-6.95 (test code = 8910729446) IMM GRAN x10^3 (test <0.03 0-0.06 code = 2690316409) LYMPH x10^3 (test code 2.44 10*3/uL 1.09-3.23 = 731-0) MONO x10^3 (test code 0.38 10*3/uL 0.36-1.02 = 742-7) EOS x10^3 (test code = 0.13 10*3/uL 0.06-0.53 711-2) BASO x10^3 (test code <0.03 0.01-0.09 = 704-7) Lab Interpretation Abnormal (test code = 62550-7) [facility]"
[2022-02-01 18:11] LABS: Hematocrit 44.9 % (39.6-49.0); Lymphocytes % 42.3 % (15.3-44.8); MCV 94.3 fL (80-100); MPV 9.5 fL (7.6-11.3); RBC Red Blood Cell Count 4.76 M/uL (4.33-5.43)
[2022-02-01 18:20] LABS: Urine Blood Trace-intact (Negative); Urine Glucose Negative (Negative); Urine Protein Negative (Negative); Urine pH 7.5 (5.0-7.0)
--- NOTE | 2022-02-01 18:22 | RAD REPORT ---
EXAM DESCRIPTION: RAD - Chest Single View - 02/01/2022 6:13 pm CLINICAL HISTORY: PALPITATIONS COMPARISON: CHEST SINGLE VIEW dated 11/02/2012; CHEST SINGLE VIEW dated 06/04/2011 FINDINGS: Lines: None. Lungs: No evidence of edema or pneumonia. Pleural: No significant pleural effusions or pneumothorax. Cardiac: The heart size is within normal limits. Mediastinum: Within normal limits. Bones: No acute fractures. Other: None IMPRESSION: No acute cardiopulmonary disease.
[2022-02-01 18:25] LABS: Urine Crystals Unidentified Few /HPF (None Seen)
[2022-02-01 18:28] LABS: Barbiturates POSITIVE (NEGATIVE); Benzodiazepines NEGATIVE (NEGATIVE); Cocaine NEGATIVE (NEGATIVE); METHAMPHETAM NEGATIVE (NEGATIVE); Methadone NEGATIVE (NEGATIVE); Opiates NEGATIVE (NEGATIVE); Phencyclidine NEGATIVE (NEGATIVE); THC Cannibis POSITIVE (NEGATIVE)
[2022-02-01 19:07] LABS: Magnesium 2.1; Troponin High Sensitivity 6.3 (<58.9)
[2022-02-01 19:15] LABS: Potassium 3.9 mmol/L (3.5-5.1)
[2022-02-01] MEDS ORDERED: cloNIDine HCL 0.1 MG TAB ONE (20:12)
--- NOTE | 2022-02-01 20:56 | EDPHYS ---
Physician Documentation [facility] Name: Cm Garduno Age: 41 yrs Sex: Male : 1980 Arrival Date: 02/01/2022 Time: 16:47 Bed 8 Private MD: ED Physician Christina Mijares HPI: 02/01 17:15 This 41 yrs old Black Male presents to ER via Ambulatory with complaints of Irregular cp Pulse, Palpitations. 17:15 The patient presents with a history of heart racing. cp 17:15 Context: The symptoms occur started about minutes after taking prescribed migraine cp medication Sumatriptan. Onset: The symptoms/episode began/occurred today. Duration: The patient or guardian reports a single episode, that is now resolved. Associated signs and symptoms: Pertinent positives: elevated blood pressure. 17:15 Patient reports he was seen in this ED 3 days ago for headache times [address] of cp head that was negative. Has been taking Sumatriptan for headache about every 6 hours. Headache relieved after taking medication but returns. History of HTN, prescribed Amlodipine and feels blood pressure has been elevated even with resuming taking medication over past several days. Historical: - Allergies: 17:11 topiramate; jl7 - Home Meds: 17:11 sumatriptan succinate 50 mg Oral tab 1 tab [Active]; jl7 17:14 amlodipine oral [Active]; jl7 - PMHx: 17:11 Colitis; migraines; jl7 17:14 Hypertensive disorder; jl7 - Immunization history:: Client reports having NOT received the Covid vaccine. - Social history:: Smoking status: Patient denies any tobacco usage or history of. ROS: 17:25 Constitutional: Negative for body aches, chills, fever, poor PO intake. cp 17:25 Eyes: Positive for photophobia, Negative for discharge, redness. cp 17:25 ENT: Negative for drainage from ear(s), ear pain, sore throat, difficulty swallowing, difficulty handling secretions. 17:25 Neck: Negative for pain with movement, pain at rest, stiffness. 17:25 Cardiovascular: Positive for palpitations, Negative for chest pain, edema. 17:25 Respiratory: Negative for cough, shortness of breath, wheezing. 17:25 Abdomen/GI: Negative for abdominal pain, vomiting, diarrhea, constipation. 17:25 Back: Negative for pain at rest, pain with movement. 17:25 : Negative for urinary symptoms. 17:25 Neuro: Negative for altered mental status, headache, numbness, syncope, weakness. 17:25 All other systems are negative. Exam: 17:12 ECG was reviewed by the Attending Physician. cp 17:28 Constitutional: The patient appears in no acute distress, alert, awake, comfortable, cp non-diaphoretic, non-toxic, well developed, well nourished. 17:28 Head/Face: Normocephalic, atraumatic. cp 17:28 Eyes: Periorbital structures: appear normal, Pupils: equal, round, and reactive to light and accomodation, Extraocular movements: intact throughout, Conjunctiva: normal, no exudate, no injection, Sclera: no appreciated abnormality, Lids and lashes: appear normal, bilaterally. 17:28 ENT: External ear(s): are unremarkable, Ear canal(s): are normal, clear, TM's: dullness, bilaterally, Nose: is normal, Mouth: Lips: moist, Oral mucosa: pink and intact, moist, Posterior pharynx: Airway: no evidence of obstruction, patent, erythema, is not appreciated, exudate, is not appreciated. 17:28 Neck: ROM/movement: is normal, is supple, without pain, no range of motions limitations. 17:28 Chest/axilla: Inspection: normal. 17:28 Cardiovascular: Rate: normal, Rhythm: regular, Edema: is not appreciated, JVD: is not appreciated. 17:28 Respiratory: the patient does not display signs of respiratory distress, Respirations: normal, no use of accessory muscles, no retractions, labored breathing, is not present, Breath sounds: are clear throughout, no decreased breath sounds, no stridor, no wheezing. 17:28 Abdomen/GI: Inspection: abdomen appears normal, Palpation: abdomen is soft and non-tender, in all quadrants. 17:28 Back: pain, is absent, ROM is normal. 17:28 Neuro: Orientation: to person, place \T\ time. Mentation: is normal, Motor: moves all fours, strength is normal, Sensation: is normal. Vital Signs: 17:09 BP 150 / 99; Pulse 88; Resp 17; Temp 98.9; Pulse Ox 100% ; Weight 83.91 kg; Height 6 jl7 ft. 2 in. (187.96 cm); Pain 0/10; 17:45 BP 151 / 107; Pulse 79; Resp 12; Pulse Ox 100% on R/A; vg1 18:30 BP 155 / 100; Pulse 84; Resp 12; Pulse Ox 98% on R/A; vg1 19:29 BP 164 / 103; Pulse 88; Resp 18; Pulse Ox 97% on R/A; ll3 20:13 BP 169 / 118; kl 20:52 BP 149 / 103; Pulse 80; Resp 18; Pulse Ox 100% on R/A; kl 21:11 BP 149 / 103; ll3 17:09 Body Mass Index 23.75 (83.91 kg, 187.96 cm) jl7 MDM: 17:17 Patient medically screened. cp 18:00 Differential diagnosis: arrythmia, stress disorder, electrolyte abnormality, cp uncontrolled htn, illegal drug use. 20:55 Data reviewed: vital signs, nurses notes, lab test result(s), EKG, radiologic studies, cp plain films. 20:55 Test interpretation: by ED physician or midlevel provider: ECG, plain radiologic cp studies. Counseling: I had a detailed discussion with the patient and/or guardian regarding: the historical points, exam findings, and any diagnostic results supporting the discharge/admit diagnosis, the presence of at least one elevated blood pressure reading (>120/80) during this emergency department visit, lab results, radiology results, the need for outpatient follow up, a family practitioner, a neurologist, to return to the emergency department if symptoms worsen or persist or if there are any questions or concerns that arise at home. Response to treatment: the patient's symptoms have markedly improved after treatment. 02/01 17:20 Order name: Basic Metabolic Panel; Complete Time: 20:01 cp 02/01 20:01 Interpretation: Normal except: GLUC 112. cp 02/01 17:20 Order name: CBC with Diff; Complete Time: 19:00 cp 02/01 17:20 Order name: Magnesium; Complete Time: 20:01 cp 02/01 17:20 Order name: Troponin HS; Complete Time: 20:01 cp 02/01 17:20 Order name: UDS; Complete Time: 19:00 cp 02/01 19:00 Interpretation: Normal except: THC POSITIVE; ZOË POSITIVE. cp 02/01 17:20 Order name: Urine Microscopic Only; Complete Time: 19:00 cp 02/01 20:02 Interpretation: Reviewed. cp 02/01 17:20 Order name: XRAY Chest (1 view); Complete Time: 19:00 cp 02/01 17:20 Order name: EKG; Complete Time: 17:20 cp 02/01 17:20 Order name: Cardiac monitoring; Complete Time: 17:37 cp 02/01 17:20 Order name: EKG - Nurse/Tech; Complete Time: 17:38 cp 02/01 17:20 Order name: IV Saline Lock; Complete Time: 17:56 cp 02/01 17:20 Order name: Labs collected and sent; Complete Time: 17:56 cp 02/01 18:21 Order name: Urine Dipstick-Ancillary; Complete Time: 19:00 EDMS 02/01 20:02 Interpretation: Reviewed. 02/01 17:20 Order name: O2 Per Protocol; Complete Time: 17:56 cp 02/01 17:20 Order name: O2 Sat Monitoring; Complete Time: 17:56 cp 02/01 17:20 Order name: Urine Dipstick-Ancillary (obtain specimen); Complete Time: 18:16 cp EC:12 Rate is 89 beats/min. Rhythm is regular. NE interval is normal. QRS interval is normal. cp QT interval is normal. T waves are Inverted in lead aVR. Interpreted by me. Reviewed by me. Administered Medications: 20:13 Drug: cloNIDine 0.1 mg Route: PO; kl 21:11 Follow up: BP 149 / 103; Response: No adverse reaction; Blood pressure is lowered ll3 Disposition Summary: 02/01/22 20:55 Discharge Ordered Location: Home cp Problem: new cp Symptoms: have improved cp Condition: Stable cp Diagnosis - Palpitations cp - Hypertensive heart disease without heart failure cp - Headache cp Followup: cp - With: Nik Turcios MD - When: 2 - 3 days - Reason: Recheck today's complaints Discharge Instructions: - Discharge Summary Sheet cp - General Headache Without Cause cp - Hypertension, Adult cp - Palpitations cp - Aspirin and Your Heart cp - Ambulatory Cardiac Monitoring cp - How to Take Your Blood Pressure cp Forms: - Medication Reconciliation Form cp - Thank You Letter cp - Antibiotic Education cp - Prescription Opioid Use cp Prescriptions: - Fioricet 50-300-40 mg Oral capsule - take 1 capsule by ORAL route every 4 hours as needed; 20 capsule; Refills: 0, cp Product Selection Permitted Signatures: Dispatcher [employer] Navya Andres, RN RN Willie Coburn PA PA cp Leal, Jahala, RN RN jl7 Laura Dominguez RN ll3
--- NOTE | 2022-02-01 20:56 | ER ---
Nurse's Notes [facility] Name: Cm Garduno Age: 41 yrs Sex: Male : 1980 Arrival Date: 02/01/2022 Time: 16:47 Bed 8 Private MD: Diagnosis: Palpitations;Hypertensive heart disease without heart failure;Headache Presentation: 02/01 17:09 Chief complaint: Patient states: Took new migraine med, sumatriptan, at 1530, 20 jl7 minutes later started feeling palpitations, symptoms resolved. Coronavirus screen: At this time, the client does not indicate any symptoms associated with coronavirus-19. Ebola Screen: No symptoms or risks identified at this time. Initial Sepsis Screen: Does the patient meet any 2 criteria? No. Patient's initial sepsis screen is negative. Does the patient have a suspected source of infection? No. Patient's initial sepsis screen is negative. Risk Assessment: Do you want to hurt yourself or someone else? Patient reports no desire to harm self or others. Onset of symptoms was February 01, 2022 at 15:50. 17:09 Method Of Arrival: Ambulatory jl7 17:09 Acuity: KRISTA 3 jl7 Triage Assessment: 17:11 General: Appears in no apparent distress. uncomfortable, Behavior is calm, cooperative, jl7 appropriate for age. Pain: Denies pain. Cardiovascular: Reports palpitations, resolved Patient's skin is warm and dry. Rhythm is regular. Historical: - Allergies: 17:11 topiramate; jl7 - Home Meds: 17:11 sumatriptan succinate 50 mg Oral tab 1 tab [Active]; jl7 17:14 amlodipine oral [Active]; jl7 - PMHx: 17:11 Colitis; migraines; jl7 17:14 Hypertensive disorder; jl7 - Immunization history:: Client reports having NOT received the Covid vaccine. - Social history:: Smoking status: Patient denies any tobacco usage or history of. Screenin:40 Abuse screen: Denies threats or abuse. Nutritional screening: No deficits noted. vg1 Tuberculosis screening: No symptoms or risk factors identified. Fall Risk No fall in past 12 months (0 pts). No secondary diagnosis (0 pts). IV access (20 points). Ambulatory Aid- None/Bed Rest/Nurse Assist (0 pts). Gait- Normal/Bed Rest/Wheelchair (0 pts) Mental Status- Oriented to own ability (0 pts). Total Rosa Fall Scale indicates No Risk (0-24 pts). Assessment: 17:40 General: Appears in no apparent distress. comfortable, Behavior is calm, cooperative. vg1 Pain: Complains of pain in head Pain does not radiate. Pain currently is 0 out of 10 on a pain scale. Pain began 4 hours ago. Neuro: Level of Consciousness is awake, alert, obeys commands, Oriented to person, place, time, situation, Reports headache. Cardiovascular: Reports palpitations, Denies chest pain, nausea, Patient's skin is warm and dry. Respiratory: Airway is patent Respiratory effort is even, unlabored. GI: No signs and/or symptoms were reported involving the gastrointestinal system. : No signs and/or symptoms were reported regarding the genitourinary system. EENT: No signs and/or symptoms were reported regarding the EENT system. Derm: Skin is pink, warm \T\ dry. Musculoskeletal: Circulation, motion, and sensation intact. 18:40 Reassessment: Patient appears in no apparent distress at this time. No changes from vg1 previously documented assessment. Patient and/or family updated on plan of care and expected duration. Pain level reassessed. Patient is alert, oriented x 3, equal unlabored respirations, skin warm/dry/pink. 18:54 General: Pt resting comfortably, NAD. kb3 20:13 Reassessment: Patient appears in no apparent distress at this time. No changes from kl previously documented assessment. Patient and/or family updated on plan of care and expected duration. Pain level reassessed. Patient is alert, oriented x 3, equal unlabored respirations, skin warm/dry/pink. Vital Signs: 17:09 BP 150 / 99; Pulse 88; Resp 17; Temp 98.9; Pulse Ox 100% ; Weight 83.91 kg; Height 6 jl7 ft. 2 in. (187.96 cm); Pain 0/10; 17:45 BP 151 / 107; Pulse 79; Resp 12; Pulse Ox 100% on R/A; vg1 18:30 BP 155 / 100; Pulse 84; Resp 12; Pulse Ox 98% on R/A; vg1 19:29 BP 164 / 103; Pulse 88; Resp 18; Pulse Ox 97% on R/A; ll3 20:13 BP 169 / 118; kl 20:52 BP 149 / 103; Pulse 80; Resp 18; Pulse Ox 100% on R/A; kl 21:11 BP 149 / 103; ll3 17:09 Body Mass Index 23.75 (83.91 kg, 187.96 cm) jl7 ED Course: 16:47 Patient arrived in ED. as 17:08 Willie Almonte PA is PHCP. cp 17:08 Christina Mijares MD is Attending Physician. cp 17:11 Triage completed. jl7 17:11 Arm band placed on right wrist. jl7 17:36 Brandee Chu, RN is Primary Nurse. vg1 17:40 Patient has correct armband on for positive identification. Bed in low position. Call vg1 light in reach. Side rails up X 1. Client placed on continuous cardiac and pulse oximetry monitoring. NIBP monitoring applied. 17:50 No provider procedures requiring assistance completed. Initial lab(s) drawn, by sd, vg1 sent to lab. Inserted saline lock: 20 gauge in left antecubital area, using aseptic technique. Blood collected. Patient maintains SpO2 saturation greater than 95% on room air. 18:15 XRAY Chest (1 view) In Process Unspecified. EDMS 18:16 Urine Microscopic Only Sent. kb3 18:16 UDS Sent. kb3 19:14 Primary Nurse role handed off by Brandee Chu, FRANCOIS mw2 20:54 Nik Turcios MD is Referral Physician. cp 21:11 IV discontinued, intact, bleeding controlled, No redness/swelling at site. Pressure ll3 dressing applied. Administered Medications: 20:13 Drug: cloNIDine 0.1 mg Route: PO; kl 21:11 Follow up: BP 149 / 103; Response: No adverse reaction; Blood pressure is lowered ll3 Medication: 17:40 VIS not applicable for this client. vg1 Outcome: 20:55 Discharge ordered by . cp 21:11 Discharged to home ambulatory. ll3 21:11 Condition: stable 21:11 Discharge instructions given to patient, Instructed on discharge instructions, follow up and referral plans. medication usage, Demonstrated understanding of instructions, follow-up care, medications, Prescriptions given X 1. 21:12 Patient left the ED. ll3 Signatures: Dispatcher [employer] EDMS Han, Navya, RN RN kl Sukh, Willie Ocasio PA PA cp Leal, Jahala, RN RN jl7 [place], Shoaib 2 Brandee Chu, RN RN vg1 Laura Dominguez, RN RN ll3 Chloé Munoz, RN RN kb3
[2022-02-01 21:23] VITALS: TEMP 98.9
[2022-02-01 21:29] VITALS: BP 149/103; O2SAT 100
--- NOTE | 2022-02-03 15:11 | EKG ---
Test Date: 2022-02-01 Test Time: 17:07:30 Screw Down: ADRIANE MEASUREMENT RESULTS: Intervals: Rate: 89 UT: 142 QRSD: 100 QT: 350 QTc: 425 [facility]: P: 77 UT: 142 QRS: 71 T: 23 INTERPRETIVE STATEMENTS: Normal sinus rhythm with sinus arrhythmia Normal ECG Compared to ECG 05/13/2012 14:28:37 No significant changes Electronically Signed On 02-03-22 15:09:24 [employer]RECTIONAL SECURITY OFFICER by Nik Turcios
== END 2022-02-01 21:12 | disposition home or self-care (01) ==
LOC: ER 16:45
DX: I11.9 Hypertensive heart disease without heart failure (principal); R51.9 Headache, unspecified; Z88.8 Allergy status to other drugs, medicaments and biological substances
CPT/HCPCS: 36415; 71045; 80048; 80307; 81003; 81015; 83735; 84484; 85025; 93005; 99284